=== PATIENT | female | born 1935 | race Caucasian/White ===

== ENCOUNTER 2017-06-09 12:01 | Inpatient (IN) ==
[2017-06-09] MEDS ORDERED: 0.9 % Sodium Chloride 1,000 ML IVC ONE (13:06)
[2017-06-09] MEDS ORDERED: Ipratropium/Albuterol Neb 3 ML IH ONE (13:06)
--- NOTE | 2017-06-09 13:09 | Emergency Department Note ---
START Narrative - START START: I examined this patient and my medical decision-making was reviewed with the [employer]'/PA/Advanced Practice Nurse/Resident Physician. I agree with the documented findings, disposition and treatment plan as described except to the extent set forth below. ED attending note: Patient seen with emergency medicine resident Dr. Cheek. We independently evaluated the patient. We independently had [id number] contact with the patient. Please see a copy of his note for details of the history and physical, evaluation, management and disposition of this emergency Department patient. Briefly: A 1-year-old female 60+ pack years tobacco history presents with cough with occasional blood-tinged sputum shortness of breath and fatigue. Chest x-ray shows a possible right hilar mass that is new. Patient will undergo evaluation and likely admission for likely bronchogenic carcinoma. Disposition pending.
[2017-06-09 13:13] LABS: Basophils # 0.1 K/mcL (0.0-0.2); Basophils % 0.6 %; Eosinophils # 0.1 K/mcL (0.0-0.6); Eosinophils % 1.3 %; Hematocrit 40.7 % (35.3-44.9); Hemoglobin 13.6 g/dL (11.5-15.4); Immature Granulocytes % 0.4 % (0-4); Lymphocytes # 1.5 K/mcL (0.6-4.6); Lymphocytes % 19.7 %; Mean Corpuscular HGB Conc 33.4 g/dL (31.6-35.5); Mean Corpuscular Hemoglobin 27.8 pg (28.0-33.3); Mean Corpuscular Volume 83.2 fL (83.0-100.0); Mean Platelet Volume 8.4 fL (9.4-12.4); Monocytes # 0.6 K/mcL (0.0-1.3); Monocytes % 7.6 %; Neutrophils # 5.5 K/mcL (1.6-8.9); Platelet Count 347 K/mcL (140-400); Red Blood Count 4.89 M/mcL (3.82-4.97); Red Cell Distribution Width 12.2 % (11.5-14.5); Segmented Neutrophils % 70.4 %
[2017-06-09 13:27] LABS: BUN/Creatinine Ratio 14 (6-26); Blood Urea Nitrogen 10 mg/dL (7-20); Calcium 9.8 mg/dL (8.6-10.8); Carbon Dioxide 24 mEq/L (19-29); Chloride 97 mEq/L (98-109); Glucose 95 mg/dL (70-99); Osmolality,Calculated 271 (280-300); Potassium 4.3 mEq/L (3.5-4.5); Sodium 131 mEq/L (136-145); eGFR For African Americans > 60 (> 60); eGFR For Non-African Americans > 60 (> 60)
[2017-06-09 13:33] LABS: INR 1.1; Prothrombin Time 11.6 Seconds (9.4-12.1)
[2017-06-09 13:36] LABS: Activated Partial Thrombo Time 30.9 Seconds (26.0-36.0)
--- NOTE | 2017-06-09 13:48 | Emergency Department Note ---
Disposition Clinical Impression: Right lower lobe lung mass, Hilar lymphadenopathy, Pneumonitis, Pleural effusion Disposition: Admitted As Inpatient Condition: Serious Time of Disposition: 15:21 SOB HPI - General Chief Complaint: ED Shortness of Breath/Dyspnea Stated Complaint: melissa Time Seen by Provider: 06/09/17 12:23 Source: patient Limitations: no limitations Nursing Notes Reviewed: Yes Vital Signs Reviewed: Yes - History of Present Illness 81-year-old female presents complaining of shortness of breath and cough, this been going on for several weeks. Denies CP. Sometimes productive of green phlegm and hemoptysis. Patient states that she has not been into the Dr. for 8 months, and she never sees a doctor and does not take any medication. Patient says more shortness of breath, denies any chest pain, denies any lower extremity swelling or edema. Pt Subjective Complaint: shortness of breath Onset (ago): week(s) Severity: moderate Consistency/Duration: intermittent Improves with: oxygen Worsens with: nothing Associated symptoms: Reports: denies other symptoms Treatment prior to arrival: none Cough present: Yes Cough Description: Voluntary - Related Data Home Medications Medication Instructions Recorded Confirmed Aspirin [Lo-Dose Aspirin EC] 81 mg PO DAILY 06/09/17 06/09/17 Allergies Allergy/AdvReac Type Severity Reaction Status Date / Time Penicillins AdvReac Rash Verified 06/09/17 12:06 Sulfa (Sulfonamide AdvReac Rash Verified 06/09/17 12:06 Antibiotics) All systems ED: reviewed and negative except as stated. Review of Systems: As Per HPI Constitutional: Reports: weakness, weight change. Denies: fever, chills Eyes: Denies: eye pain ENT ED: Denies: ear pain Cardiovascular: Denies: chest pain Respiratory: Reports: as per HPI, cough, hemoptysis, sputum production Gastrointestinal: Denies: abdominal pain, nausea, vomiting Genitourinary: Denies: urgency, dysuria Musculoskeletal: Denies: back pain Integumentary: Denies: rash Neurological: Denies: headache, weakness Psychiatric: Denies: anxiety Past Medical History - Past Medical History Attestation: Yes The following information was validated with the patient. Source: patient Medical history: Reports: no medical history Psychiatric history: Reports: no psych history - Social History Smoking Status: Current every day smoker Smokeless Tobacco Status: No Alcohol use: Reports: none Drug use: Reports: none Physical Exam Constitutional: NAD, vital signs reviewed and wnl, satting 95% on room air, cachectic Eyes: PERRLA, sclera anicteric ENT & Mouth: MM dry Neck: normal inspection, neck is supple Resp: Diminished breath sounds on the right CV: RRR, no m/g/r GI: normal inspection, soft, no guarding or rigidity Neuro: A&O3, CNII-XII grossly intact, [place] Skin: on limited exam, poor skin turgor - General Limitations: no limitations General appearance: alert, in no apparent distress Course Course Narrative: 81-year-old female with cough hemoptysis some weight loss, worsening shortness of breath for several weeks, although she satting 95% on room air, I am concerned given her history with hemoptysis that she may have pulmonary pathology, an x-ray was ordered at triage I reviewed this appears to show a hilar mass and right-sided pleural effusion, I went back and performed a bedside echocardiogram from the subxiphoid view this did show pericardial effusion electrical alternans was evident on the EKG. The patient was eating CBC BMP trope coagulations, CT of the chest to evaluate for intrathoracic pathology suspect likely pull primary lung cancer - Reevaluation(s) Reevaluation #1: CT does confirm bronchogenic mass, with postobstructive pneumonitis, patient's hemogram and a stable otherwise she will be admitted for evaluation, Dr. Ge accepting the patient for admission, plan for hematology oncology consultation Time: 15:20 Vital Signs Temperature 98.0 F 06/09/17 12:03 Pulse Rate 99 06/09/17 12:03 Respiratory Rate 20 06/09/17 12:03 Blood Pressure 213/95 06/09/17 12:03 O2 Sat by Pulse Oximetry 96 06/09/17 12:03 Temperature 98.0 F 06/09/17 12:03 Pulse Rate 93 06/09/17 13:19 Respiratory Rate 18 06/09/17 13:37 Blood Pressure 179/98 06/09/17 13:19 O2 Sat by Pulse Oximetry 96 06/09/17 13:37 Oxygen Delivery Oxygen Delivery Nasal Cannula Shortness of Breath/Dyspnea - MDM Narrative Medical decision making narrative: 81-year-old female for cough shortness of breath hemoptysis found to have new right-sided lung mass pleural effusion suspected lung cancer needed for medicine workup and oncology consultation - Differential Diagnosis Likely: acute exacerbation of chronic obstructive airways disease, congestive heart failure, pulmonary embolism - Medical Records Medical records reviewed: Yes I reviewed the patient's medical records. - Lab Data Lab results reviewed: Yes I reviewed the patient's lab results. Result diagrams: 06/09/17 13:07 06/09/17 13:07 Lab Results 06/09/17 06/09/17 06/09/17 Range/Units 13:07 13:07 13:07 WBC 7.8 (4.3-11.1) K/mcL RBC 4.89 (3.82-4.97) M/mcL Hgb 13.6 (11.5-15.4) g/dL Hct 40.7 (35.3-44.9) % MCV 83.2 (83.0-100.0) fL MCH 27.8 L (28.0-33.3) pg MCHC 33.4 (31.6-35.5) g/dL RDW 12.2 (11.5-14.5) % Plt Count 347 (140-400) K/mcL MPV 8.4 L (9.4-12.4) fL Immature Gran % 0.4 (0-4) % Seg Neutrophils % 70.4 % Lymphocytes % 19.7 % Monocytes % 7.6 % Eosinophils % 1.3 % Basophils % 0.6 % Neutrophils # 5.5 (1.6-8.9) K/mcL Lymphocytes # 1.5 (0.6-4.6) K/mcL Monocytes # 0.6 (0.0-1.3) K/mcL Eosinophils # 0.1 (0.0-0.6) K/mcL Basophils # 0.1 (0.0-0.2) K/mcL PT (9.4-12.1) Seconds INR APTT (26.0-36.0) Seconds Sodium 131 L (136-145) mEq/L Potassium 4.3 (3.5-4.5) mEq/L Chloride 97 L (98-109) mEq/L Carbon Dioxide 24 (19-29) mEq/L BUN 10 (7-20) mg/dL Creatinine 0.70 (0.57-1.11) mg/dL Est GFR ( Amer) > 60 (> 60) Est GFR (Non-Af Amer) > 60 (> 60) BUN/Creatinine Ratio 14 (6-26) Glucose 95 (70-99) mg/dL Calculated Osmolality 271 L (280-300) Lactic Acid 1.3 (0.5-2.2) mmol/L Calcium 9.8 (8.6-10.8) mg/dL Troponin I (0-0.03) ng/mL B-Natriuretic Peptide (0-100) pg/mL 06/09/17 06/09/17 06/09/17 Range/Units 13:07 13:07 13:07 WBC (4.3-11.1) K/mcL RBC (3.82-4.97) M/mcL Hgb (11.5-15.4) g/dL Hct (35.3-44.9) % MCV (83.0-100.0) fL MCH (28.0-33.3) pg MCHC (31.6-35.5) g/dL RDW (11.5-14.5) % Plt Count (140-400) K/mcL MPV (9.4-12.4) fL Immature Gran % (0-4) % Seg Neutrophils % % Lymphocytes % % Monocytes % % Eosinophils % % Basophils % % Neutrophils # (1.6-8.9) K/mcL Lymphocytes # (0.6-4.6) K/mcL Monocytes # (0.0-1.3) K/mcL Eosinophils # (0.0-0.6) K/mcL Basophils # (0.0-0.2) K/mcL PT 11.6 (9.4-12.1) Seconds INR 1.1 APTT 30.9 (26.0-36.0) Seconds Sodium (136-145) mEq/L Potassium (3.5-4.5) mEq/L Chloride (98-109) mEq/L Carbon Dioxide (19-29) mEq/L BUN (7-20) mg/dL Creatinine (0.57-1.11) mg/dL Est GFR ( Amer) (> 60) Est GFR (Non-Af Amer) (> 60) BUN/Creatinine Ratio (6-26) Glucose (70-99) mg/dL Calculated Osmolality (280-300) Lactic Acid (0.5-2.2) mmol/L Calcium (8.6-10.8) mg/dL Troponin I 0.00 (0-0.03) ng/mL B-Natriuretic Peptide 33 (0-100) pg/mL - Radiology Data Radiology results reviewed: Yes I reviewed the patient's radiology results. Chest X-Ray 06/09/17 12:06 IMPRESSION: New moderate right pleural effusion with increased density in the right hilum. Would recommend further evaluation with contrast-enhanced chest CT to evaluate for mass or adenopathy within the right hilum. D/ / 06/09/2017 13:01:36 Misti Luther MD / jonathan Interpreting Provider: Misti Luther MD Chest CTA 06/09/17 13:07 IMPRESSION: 1. Extensive mediastinal and right hilar adenopathy highly suspicious for malignancy. Adenopathy results in extrinsic compression of the right lower lobe pulmonary artery, right middle lobe bronchus, and right lower lobe bronchus. Diffuse consolidation of the right middle lobe may represent a postobstructive pneumonitis. 2. Inter- and intralobular septal thickening in the right upper lobe suspicious for lymphangitis. 3. Moderate right pleural effusion. D/ / 06/09/2017 14:25:21 Kody Fountain MD / jonathan Interpreting Provider: Kody Fountain MD - EKG Data EKG attestation: Yes I reviewed and interpreted this EKG. EKG shows normal: Reports: sinus rhythm Rate: Reports: normal (89) Rhythm: Reports: NSR When compared to previous EKG there are: other (Electrical alternans) Interpretation: Reports: nonspecific ST-T wave changes - Core Measures AMI Core Measures Followed: No
[2017-06-09] MEDS ORDERED: Levofloxacin 750 MG/150 ML 750 MG/150 ML BAG IVPB ONE (14:51)
--- NOTE | 2017-06-09 17:28 | Internal Med History&Physical ---
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 Admitted with worsening shortness of breath: Duration 2 weeks. Workup in the emergency room: Suggestive of a right lower lobe mass. Likely post obstructive pneumonia. Patient claims that she used to smoke in the past. Plan: -Admit as inpatient: Reason for inpatient admission as patient needs intravenous antibiotics for postobstructive pneumonia. -Blood cultures. -IV ceftriaxone 1 g every 24 hours. -IV azithromycin 500 mg every 24 hours. At this point I would like to hold the consult for pulmonary/interventional radiology because I am not sure whether patient would like to go for any invasive procedure. If tomorrow patient agrees for any invasive procedure then pulmonology/ interventional radiology can be consulted for possible biopsy. Patient's daughter at bedside. I have discussed plan with the patient's daughter at length. I have examined this patient in the emergency department in room #15. (2) Hilar lymphadenopathy Current visit: Yes Status: Acute Likely secondary to malignancy. (3) Pneumonitis Current visit: Yes Status: Acute This is a post obstructive pneumonia. Patient will be on community-acquired pneumonia guideline/antibiotics (4) Pleural effusion Current visit: Yes Status: Acute May need aspiration if patient's shortness of breath get worse. (5) DVT prophylaxis Current visit: Yes Status: Acute SCD. Medical decision making: This patient has a moderate to severe risk of worsening in spite of being on appropriate treatment due to the possibility of underlying fatal diagnosis/there is a possibility of a malignancy. Internal Medicine - H&P: HPI Chief complaint: Shortness of breath Admitted From: Emergency Dept Plans for Post Hospital Care: Home History of present illness: PCP: None Brief as medical history: Patient never been to see in last 81 years. Patient treats her pain with the help of magnets which she orders by watching TV commercials. History of present medical illness: Patient has a worsening shortness of breath for past 2 weeks. Patient claims that she has a yellowish-green sputum which is persistently getting worse in last 3-4 days. Patient claims that on minimal walking she feels that she is short of breath. Patient denies chest pain, abdominal pain, nausea, vomiting, diarrhea or dizziness. Patient does not want invasive procedures and that is one of the reason she is delaying her visit to her doctors. Patient's daughter is at bedside and patient is permission to talk about her health in front of her daughter. Workup in the emergency room: Patient was evaluated in the emergency room. Basic labs were drawn. CT scan of the chest was suggestive of a large lung mass with postobstructive pneumonia. Reason for admission: New lung mass/post obstructive pneumonia/patient was never seen a physician in her life. Family history: Noncontributory Past Med Surg Social Fam HX - Past Medical History Medical history: no medical history Psychiatric history: no psych history - Social History Smoking Status: Current every day smoker Smokeless Tobacco Status: No Alcohol use: none Drug use: none Internal Medicine - H&P: Meds Aspirin [Lo-Dose Aspirin EC] 81 mg PO DAILY 06/09/17 [History] 3 Allergy/AdvReac Type Severity Reaction Status Date / Time Penicillins AdvReac Rash Verified 06/09/17 12:06 Sulfa (Sulfonamide AdvReac Rash Verified 06/09/17 12:06 Antibiotics) All Systems PM: A 10-system review of systems was performed and is negative for pertinent findings except as documented above in the HPI. - Constitutional Constitutional: no chills, no fever(s), no night sweats - EENT Eyes: no change in vision, no discharge, no pain, no photophobia Ears: no ear discharge, no ear pain, no tinnitus Nose, mouth and throat: no dysphagia, no nasal discharge, no neck pain, no sore throat - Cardiovascular Cardiovascular ROS IM: no chest pain, no diaphoresis, no dyspnea, no lightheadedness, no palpitations, no syncope - Respiratory Respiratory: cough, dyspnea, excessive phlegm production, change in phlegm color , no wheezing - Gastrointestinal Gastrointestinal: no abdominal pain, no diarrhea, no hematemesis, no hematochezia, no melena, no nausea, no vomiting - Genitourinary Genitourinary: no change in urinary stream, no dysuria, no flank pain, no hematuria - Musculoskeletal Musculoskeletal ROS IM: no numbness, no tingling - Integumentary Integumentary IM: no rash, no unusual bruising - Neurological Neurological ROS: no confusion, no convulsions, no focal weakness, no numbness, no tingling, no tremor(s) - Hematologic/Lymphatic Hematologic/Lymphatic: no easy bruising - Constitutional Vitals: Temp Pulse Resp BP Pulse Ox 98.0 F 97 18 149/81 95 06/09/17 12:03 06/09/17 16:14 06/09/17 16:14 06/09/17 16:14 06/09/17 16:14 General appearance: Present: A&O X 3, pleasant, no acute distress, answers questions appropriately - Head Head exam: Present: atraumatic, normocephalic - Eye Eye exam: Present: PERRL, conjuntiva pink, sclera anicteric Pupils: Present: PERRL - Neck Neck exam general surgery: Present: supple, trachea midline. Absent: lymphadenopathy - Respiratory Respiratory exam: Present: CTAB. Absent: accessory muscle use, rales, rhonchi, wheezes - Cardiovascular Cardiovascular exam: Present: RRR, +S1, +S2. Absent: diastolic murmur, gallop, rubs, systolic murmur - GI/Abdominal GI/Abdominal exam: Present: normal bowel sounds, soft, no peritoneal signs. Absent: distended, tenderness - Extremities Exam Extremities exam: Present: warm, radial pulses palpable and symmetrical. Absent : calf tenderness, cyanotic, pedal edema - Neurological Exam Neurological exam: Present: CN II-XII intact, oriented X3, no focal deficits. Absent: pronater drift, facial droop, speech deficit - Skin Skin exam: Present: dry, intact Internal Med - H&P Results - Labs CBC & Chem 7: 06/09/17 13:07 06/09/17 13:07 Labs: I discussed lab results/EKG with the emergency room physician. I also discussed CT chest finding with the emergency room physician.
[2017-06-09] MEDS ORDERED: Naloxone 0.4 MG/ML INJ IVP PRN (17:34)
[2017-06-09] MEDS ORDERED: Acetaminophen 325 MG TABLET PO PRN (17:34)
[2017-06-09] MEDS: cefTRIAXone 1,000 MG in Water for inj. (sterile) 10 ML IVP SCH (19:00)
[2017-06-09] MEDS: Azithromycin 500 MG in D5% in Water 250 ML IVPB SCH (19:01)
[2017-06-09] MEDS: 0.9 % Sodium Chloride 1,000 ML IVC SCH (19:01)
[2017-06-09] MEDS: Ipratropium/Albuterol Neb 3 ML IH SCH ×2 (20:04→23:19)
[2017-06-09] MEDS ORDERED: ALPRAZolam 0.25 MG TABLET PO ONE (23:39)
[2017-06-10 01:08] LABS: Basophils % 0.5 %; Eosinophils # 0.2 K/mcL (0.0-0.6); Eosinophils % 2.5 %; Hematocrit 34.3 % (35.3-44.9); Immature Granulocytes % 0.4 % (0-4); Lymphocytes # 1.6 K/mcL (0.6-4.6); Lymphocytes % 20.2 %; Mean Corpuscular HGB Conc 32.9 g/dL (31.6-35.5); Mean Corpuscular Hemoglobin 27.8 pg (28.0-33.3); Mean Corpuscular Volume 84.3 fL (83.0-100.0); Mean Platelet Volume 8.5 fL (9.4-12.4); Monocytes # 0.7 K/mcL (0.0-1.3); Monocytes % 8.4 %; Neutrophils # 5.4 K/mcL (1.6-8.9); Platelet Count 311 K/mcL (140-400); Red Blood Count 4.07 M/mcL (3.82-4.97); Red Cell Distribution Width 12.3 % (11.5-14.5)
[2017-06-10 01:10] LABS: Hemoglobin 11.3 g/dL (11.5-15.4)
[2017-06-10 01:14] LABS: INR 1.2; Prothrombin Time 12.5 Seconds (9.4-12.1)
[2017-06-10 01:16] LABS: Activated Partial Thrombo Time 29.8 Seconds (26.0-36.0)
[2017-06-10 01:26] LABS: Alanine Aminotransferase 12 Units/L (0-55); Albumin/Globulin Ratio 0.9 (1.1-2.2); Alkaline Phosphatase 106 Units/L (38-126); Aspartate Amino Transferase 17 Units/L (5-34); BUN/Creatinine Ratio 12 (6-26); Bilirubin,Total 0.3 mg/dL (0.2-1.2); Blood Urea Nitrogen 8 mg/dL (7-20); Calcium 8.9 mg/dL (8.6-10.8); Carbon Dioxide 25 mEq/L (19-29); Chloride 101 mEq/L (98-109); Globulin 3.5 g/dL (2.4-3.5); Glucose 106 mg/dL (70-99); Magnesium 2.1 mg/dL (1.6-2.6); Osmolality,Calculated 275 (280-300); Phosphorous 3.1 mg/dL (2.3-4.7); Potassium 4.1 mEq/L (3.5-4.5); Sodium 133 mEq/L (136-145); Total Protein 6.5 g/dL (6.0-8.3); eGFR For African Americans > 60 (> 60); eGFR For Non-African Americans > 60 (> 60)
[2017-06-10] MEDS: Ipratropium/Albuterol Neb 3 ML IH SCH ×5 (03:20→21:00)
[2017-06-10] MEDS: 0.9 % Sodium Chloride 1,000 ML IVC SCH (12:25)
--- NOTE | 2017-06-10 14:19 | Pulmonology Consult Note ---
Date of Encounter: 06/10/17 Time of Encounter: 14:19 Assessment and Plan (1) Hilar lymphadenopathy Current Visit: Yes Status: Acute This is concerning primary lung malignancy it is unclear if there is any endobronchial extension from tumor at this time. Plan for bronchoscopy with endobronchial ultrasound for further evaluation. I explained to the patient that this does look like lung cancer less likely all related to infection all questions answered at bedside. A bronchoscopy is recommended. The procedure , risks, benefits, complications, and expected outcomes have been reviewed. Benefits of diagnosis, as well as risks to include bleeding, infection, pneumothorax which may require surgical intervention, and in a small population. The patient is aware that sometimes test is nondiagnostic. Discussed with patient and agrees to proceed. Please keep nothing by mouth at midnight (2) Pneumonia Current Visit: Yes Status: Acute Postobstructive pneumonia being treated with antimicrobials cultures as far negative de-escalate a respiratory fluoroquinolone to complete 7 day course Qualifiers: Laterality: right Lung location: upper lobe of lung Qualified Code(s): J18.1 - Lobar pneumonia, unspecified organism (3) COPD (chronic obstructive pulmonary disease) Current Visit: Yes Status: Acute Does not appear to have acute exacerbation recommend schedule bronchodilators and dual nebs) every 6 hours patient should be discharged with long acting muscarinic antagonist such as Spiriva 18 g daily Qualifiers: COPD type: emphysema Emphysema type: unspecified Qualified Code(s): J43.9 - Emphysema, unspecified (4) Tobacco abuse Current Visit: Yes Status: Acute Smoking cessation counseling was provided for the patient (5) Pleural effusion Current Visit: Yes Status: Acute Suspected right metastatic pleural effusion thoracentesis can be attempted prior to bronchoscopy for cytological analysis History of Present Illness Consult date: 06/10/17 Requesting physician: Fish Tellez Reason for consult: lung mass Chief complaint: Shortness of Breath History of present illness: This is an 81-year-old woman with extensive smoking history who presented with progressive shortness of breath cough or productive sputum and weight loss over the last month. She says that she has noticed that she has had increased shortness of breath dyspnea with activity poor appetite and weight loss along with persistent productive sputum sometimes mixed with blood. CTA was performed in the ED which was notable for right upper lobe postobstructive pneumonia narrowing of the right mainstem bronchus from extrinsic compression of lymph node versus tumor and underlying emphysema concerning for primary lung malignancy. Pulmonary was consulted for further evaluation of this Today patient says that breathing is near baseline she is not requiring any supplemental oxygen at this time. She is a long-time smoker since the age of 18 about a pack a day continues to smoke to the time of admission to the hospital. She has not seen a doctor in 50 years no family history of lung malignancy and she does not have any prior history of personal malignancy. She worked in several jobs throughout her life but none of which had significant occupational exposures. Past Med Surg Social Fam HX - Past Medical History Medical history: no medical history Psychiatric history: no psych history - Past Surgical History Surgical History: no surgical history - Social History Smoking Status: Current every day smoker Packs per day: 1.5-2 Smokeless Tobacco Status: No Alcohol use: none Drug use: none - Family History Mother Family Member Ethnicity: Non- Living Status: Age at : 63 Cause of : Stroke Hx Family Cardiac Disorders: Yes Father Living Status: Age at : 64 Cause of : Heart Attack Hx Family Cardiac Disorders: Yes Brother Living Status: Age at : 80 Cause of : NHatural causes Hx Family Cardiac Disorders: Yes Medications and Allergies Aspirin [Lo-Dose Aspirin EC] 81 mg PO DAILY 06/09/17 [History] 3 Allergy/AdvReac Type Severity Reaction Status Date / Time Penicillins AdvReac Rash Verified 06/09/17 12:06 Sulfa (Sulfonamide AdvReac Rash Verified 06/09/17 12:06 Antibiotics) All Systems: A 10-system review of systems was performed and is negative for pertinent findings except as documented above in the HPI. Physical Examination Vital Signs: Vital Signs, Last 4 Hours Temp Pulse Resp BP Pulse Ox 06/10/17 11:42 98.0 F 78 16 156/68 96 06/10/17 11:20 16 96 General appearance: no acute distress Eyes: nonicteric Auscultation: left: clear, right: diminished breath sounds, rhonchi Cardiovascular: regular rate and rhythm Gastrointestinal: normoactive bowel sounds, soft, non-tender Integumentary: normal Extremities: no cyanosis, no edema, no clubbing Musculoskeletal: no deformities normal mental status, non-focal exam mood appropriate Results - Laboratory Findings CBC and BMP: 06/10/17 00:43 06/10/17 00:43 PT/INR, D-dimer PT 12.5 Seconds (9.4-12.1) H 06/10/17 00:43 Abnormal lab findings: Abnormal lab results Hgb 11.3 g/dL (11.5-15.4) L D 06/10/17 00:43 Hct 34.3 % (35.3-44.9) L 06/10/17 00:43 MCH 27.8 pg (28.0-33.3) L 06/10/17 00:43 MPV 8.5 fL (9.4-12.4) L 06/10/17 00:43 PT 12.5 Seconds (9.4-12.1) H 06/10/17 00:43 Sodium 133 mEq/L (136-145) L 06/10/17 00:43 Glucose 106 mg/dL (70-99) H 06/10/17 00:43 Calculated Osmolality 275 (280-300) L 06/10/17 00:43 Albumin 3.0 g/dL (3.5-5.0) L 06/10/17 00:43 Albumin/Globulin Ratio 0.9 (1.1-2.2) L 06/10/17 00:43 - Diagnostic Findings Chest x-ray: report reviewed, image reviewed CT scan - chest: report reviewed, image reviewed - Clinical Findings Intake & Output: Intake & Output 06/09/17 06/10/17 06/10/17 23:59 07:59 15:59 Intake Total 260 / 410 0 / 0 1120 / 1120 Balance 260 / 410 0 / 0 1120 / 1120 Weight 71.1 kg Consult Discharge Plan - Plan Referrals: NONE,PCP [Primary Care Provider] -
--- NOTE | 2017-06-10 16:46 | Electrocardiograph Report ---
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
[2017-06-10] MEDS: cefTRIAXone 1,000 MG in Water for inj. (sterile) 10 ML IVP SCH (18:58)
[2017-06-10] MEDS: Azithromycin 500 MG in D5% in Water 250 ML IVPB SCH (18:59)
--- NOTE | 2017-06-10 19:18 | Internal Med Progress Note ---
Date of Encounter: 06/10/17 Time of Encounter: 13:00 - Assessment and plan (1) Postobstructive pneumonia Current Visit: Yes Status: Acute Assessment and plan: Continue with ceftriaxone. Follow-up blood culture and sputum culture. Oxygen by nasal cannula. (2) Hilar lymphadenopathy Current Visit: Yes Status: Acute Assessment and plan: Consult to pulmonology to evaluate for need of bronchoscopy and biopsy. (3) COPD (chronic obstructive pulmonary disease) Current Visit: Yes Status: Acute Assessment and plan: Inhaled albuterol and ipratropium. Qualifiers: COPD type: emphysema Emphysema type: centrilobular Qualified Code(s): J43.2 - Centrilobular emphysema (4) Tobacco abuse Current Visit: Yes Status: Acute Assessment and plan: Smoking cessation counseling provided. - Subjective Interval history: She reports mild shortness of breath associated with cough productive of yellow sputum. She has had no fever but a 10 pound weight loss in the last 1 month. - Constitutional Vitals: Temp Pulse Resp BP Pulse Ox 98.1 F 82 14 149/77 98 06/10/17 18:46 06/10/17 18:46 06/10/17 18:46 06/10/17 18:46 06/10/17 18:46 General appearance: Present: A&O X 3, pleasant, no acute distress, answers questions appropriately - Eye Eye exam: Present: PERRL, conjuntiva pink, sclera anicteric Pupils: Present: PERRL - Respiratory Respiratory exam: Present: CTAB. Absent: accessory muscle use, rales, rhonchi, wheezes - Cardiovascular Cardiovascular exam: Present: RRR, +S1, +S2. Absent: diastolic murmur, gallop, rubs, systolic murmur - GI/Abdominal GI/Abdominal exam: Present: normal bowel sounds, soft, no peritoneal signs. Absent: distended, tenderness - Extremities Exam Extremities exam: Present: warm, radial pulses palpable and symmetrical. Absent : calf tenderness, cyanotic, pedal edema - Skin Skin exam: Present: dry, intact Internal Medicine: Result - Labs CBC & Chem 7: 06/10/17 00:43 06/10/17 00:43 Labs: Short CBC 06/10/17 Range/Units 00:43 WBC 8.0 (4.3-11.1) K/mcL Hgb 11.3 L D (11.5-15.4) g/dL Hct 34.3 L (35.3-44.9) % Plt Count 311 (140-400) K/mcL Neutrophils # 5.4 (1.6-8.9) K/mcL BMP 06/10/17 00:43 Sodium 133 L Potassium 4.1 Chloride 101 Carbon Dioxide 25 BUN 8 Creatinine 0.68 Glucose 106 H Calcium 8.9 Cardiac Enzymes 06/09/17 06/10/17 06/10/17 Range/Units 18:56 00:43 05:27 Troponin I 0.01 0.00 0.00 (0-0.03) ng/mL Liver Function 06/10/17 Range/Units 00:43 Total Bilirubin 0.3 (0.2-1.2) mg/dL AST 17 (5-34) Units/L ALT 12 (0-55) Units/L Alkaline Phosphatase 106 (38-126) Units/L Albumin 3.0 L (3.5-5.0) g/dL - ABG Interpretation ABG results: PT/INR, D-dimer PT 12.5 Seconds (9.4-12.1) H 06/10/17 00:43 - Impressions I reviewed a CAT scan of the chest which shows extensive mediastinal and right hilar adenopathy with compression of right middle lobe bronchus and postobstructive right middle lobe pneumonia. Consult Discharge Plan - Plan Referrals: NONE,PCP [Primary Care Provider] -
--- NOTE | 2017-06-10 19:49 | Anesthesia Evaluation PreOp ---
Date of Encounter: 06/11/17 Time of Encounter: 19:46 - Past History Planned Operation: EBUS Cardiac History: Denies any Significant Hx Pulmonary History: Smoker, COPD, Other ( right lower lobe mass. 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: Denies Any Significant HX Other Medical History: Denies Any Significant HX : No Alcohol Use: none Drug use: none Medications and Allergies Aspirin [Lo-Dose Aspirin EC] 81 mg PO DAILY 06/09/17 [History] 3 Allergy/AdvReac Type Severity Reaction Status Date / Time Penicillins AdvReac Rash Verified 06/09/17 12:06 Sulfa (Sulfonamide AdvReac Rash Verified 06/09/17 12:06 Antibiotics) - Meds/Allergy Pre-op Review Medications Reviewed: Yes Allergies Reviewed: Yes Beta Blockers on Current Med List: No Anesthesia Results - Labs 06/10/17 00:43 06/10/17 00:43 - Imaging EKG: image reviewed (SINUS RHYTHM LEFT ATRIAL ENLARGEMENT INCOMPLETE RIGHT BUNDLE BRANCH BLOCK) Anesthesia Exam O2 Sat Weight 71.1 kg O2 Sat by Pulse Oximetry 98 O2 Sat by Pulse Oximetry 99 O2 Sat by Pulse Oximetry 98 O2 Sat by Pulse Oximetry 96 O2 Sat by Pulse Oximetry 96 O2 Sat by Pulse Oximetry 99 O2 Sat by Pulse Oximetry 97 O2 Sat by Pulse Oximetry 98 O2 Sat by Pulse Oximetry 96 O2 Sat by Pulse Oximetry 98 Vital Signs Temp Pulse Resp BP Pulse Ox 98.0 F 99 20 213/95 96 06/09/17 12:03 06/09/17 12:03 06/09/17 12:03 06/09/17 12:03 06/09/17 12:03 Vital Signs/O2 Sat, Most Current Temp Pulse Resp BP Pulse Ox 98.1 F 82 14 149/77 98 06/10/17 18:46 06/10/17 18:46 06/10/17 18:46 06/10/17 18:46 06/10/17 18:46 Height: 5' Weight: 156# NPO (# of Hours): > 8 hrs Pain Scale: 0 Pain Scale Used: Numeric (1 - 10) - HEENT Pupil (Motor): Pupils equal, EOMI Mallampati: I Teeth: Edentulous Oral Opening: Greater than 3 - HEADING AND PRIMING OPERATOR LOC: Oriented HEADING AND PRIMING OPERATOR Motor: Normal RUE, Normal LUE, Normal RLE, Normal LLE, Normal Face HEADING AND PRIMING OPERATOR Sensory: Normal: RUE, LUE, RLE, LLE, Face - Cardiac Rhythm: Regular Murmur: None JVD: No Carotid Bruit: No - Pulmonary Breath Sounds: bilateral Clear Respiratory Effort: Symmetrical Anesthesia Assess/Plan ASA Score: 3 Modified Laurens Scale for Level of Consciousness: Cooperative, oriented, and tranquil Anesthetic Plan: General Autologous Blood: Yes Monitoring Plan: Standard Monitors Recovery Plan: PACU
[2017-06-10] MEDS: hydrOXYzine pamoate 25 MG CAPSULE PO SCH (22:35)
[2017-06-11] MEDS: Ipratropium/Albuterol Neb 3 ML IH SCH ×7 (00:40→23:11)
[2017-06-11 04:55] LABS: Basophils # 0.1 K/mcL (0.0-0.2); Basophils % 0.8 %; Eosinophils # 0.3 K/mcL (0.0-0.6); Hematocrit 33.7 % (35.3-44.9); Hemoglobin 11.2 g/dL (11.5-15.4); Immature Granulocytes % 0.4 % (0-4); Lymphocytes # 1.9 K/mcL (0.6-4.6); Lymphocytes % 26.2 %; Mean Corpuscular HGB Conc 33.2 g/dL (31.6-35.5); Mean Corpuscular Hemoglobin 28.3 pg (28.0-33.3); Mean Corpuscular Volume 85.1 fL (83.0-100.0); Mean Platelet Volume 8.7 fL (9.4-12.4); Monocytes # 0.6 K/mcL (0.0-1.3); Monocytes % 8.3 %; Neutrophils # 4.3 K/mcL (1.6-8.9); Platelet Count 293 K/mcL (140-400); Red Blood Count 3.96 M/mcL (3.82-4.97); Red Cell Distribution Width 12.5 % (11.5-14.5); Segmented Neutrophils % 60.3 %
[2017-06-11 05:18] LABS: BUN/Creatinine Ratio 12 (6-26); Blood Urea Nitrogen 8 mg/dL (7-20); Calcium 9.1 mg/dL (8.6-10.8); Carbon Dioxide 24 mEq/L (19-29); Chloride 100 mEq/L (98-109); Glucose 112 mg/dL (70-99); Osmolality,Calculated 277 (280-300); Sodium 134 mEq/L (136-145); eGFR For African Americans > 60 (> 60); eGFR For Non-African Americans > 60 (> 60)
--- NOTE | 2017-06-11 08:37 | Pulmonology Progress Note ---
Date of Encounter: 06/11/17 Time of Encounter: 08:00 Assessment and Plan (1) LAD (lymphadenopathy), mediastinal Current Visit: Yes Status: Acute Patient has extensive mediastinal and hilar LN concern for small cell ca did EBUS with [facility]NA today afternoon showed prelim results small ca Vs Lymphoma waiting for final results from cell block most likely due to small cell ca will wait for final results will call Medical oncology vs Radiation oncology. Explained the plan to the daughter. (2) Hilar lymphadenopathy Current Visit: Yes Status: Acute Is due to same process most likely due to small cell ca Vs Lymphoma waiting for final pathology results (3) Right lower lobe lung mass Current Visit: Yes Status: Acute The lung mass plus the mediastinal adenopathy especially the sub carinal LN compressing the pulmonary artery once the pathology is confirmed will contact radiation oncology for probable evaluation of urgent radiation therapy as the mass is compressing the Bronchus intermedius ,RML and RLL bronchus and sub carinal LN compressing the pulmonary artery. (4) Pneumonia Current Visit: Yes Status: Acute Patient has probable post obstructive pneumonia involving both lower and middle lobe of the right lung , BAL was done for respiratory culture . Will continue the current regimen of antibiotics. Qualifiers: Pneumonia type: due to unspecified organism Laterality: right Lung location: lower lobe of lung Qualified Code(s): J18.1 - Lobar pneumonia, unspecified organism (5) COPD (chronic obstructive pulmonary disease) Current Visit: Yes Status: Acute Patient has increased wheezing to add steroids to bronchodilators will treat as COPD exacerbation. Qualifiers: COPD type: emphysema Emphysema type: centrilobular Qualified Code(s): J43.2 - Centrilobular emphysema Subjective Principal diagnosis: Mediastinal Lymphadenopathy ,Hilar Lymphadenopathy Interval history: Patient presented with increased shortness of breadth , cough, sputum production and hemoptysis CT chest showed Hilar and Mediastinal Lymphadenopathy , with Right middle and lower lobe endobronchial compression concern for small cell Ca pateint scheduled for EBUS and Bronchoscopy ariway examination. Objective PUL Vital signs: Last Vital Signs Temp 98.8 F 06/11/17 06:51 Pulse 71 06/11/17 06:51 Resp 16 06/11/17 08:02 BP 135/75 06/11/17 06:51 Pulse Ox 96 06/11/17 08:03 Auscultation: bilateral: wheezes (scattered wheezes) Results - Laboratory Findings CBC and BMP: 06/11/17 03:47 06/11/17 03:47 PT/INR, D-dimer PT 12.5 Seconds (9.4-12.1) H 06/10/17 00:43 Abnormal lab findings: Abnormal lab results Hgb 11.2 g/dL (11.5-15.4) L 06/11/17 03:47 Hct 33.7 % (35.3-44.9) L 06/11/17 03:47 MPV 8.7 fL (9.4-12.4) L 06/11/17 03:47 PT 12.5 Seconds (9.4-12.1) H 06/10/17 00:43 Sodium 134 mEq/L (136-145) L 06/11/17 03:47 Glucose 112 mg/dL (70-99) H 06/11/17 03:47 Calculated Osmolality 277 (280-300) L 06/11/17 03:47 Albumin 3.0 g/dL (3.5-5.0) L 06/10/17 00:43 Albumin/Globulin Ratio 0.9 (1.1-2.2) L 06/10/17 00:43 - Microbiology Findings Microbiology Findings: Microbiology, Last 48 Hours 06/09/17 18:56 Blood Culture - Preliminary Peripheral Venipuncture No growth. 06/09/17 18:56 Blood Culture - Preliminary Peripheral Venipuncture No growth. - Clinical Findings Intake & Output: Intake & Output 06/10/17 06/11/17 06/11/17 23:59 07:59 15:59 Intake Total 380 / 380 Balance 380 / 380 Weight 71.6 kg - VTE Documentation of Mechanical Device: Graduated compression elastic hosiery Consult Discharge Plan - Plan Referrals: NONE,PCP [Primary Care Provider] -
[2017-06-11] MEDS ORDERED: *HR* Propofol 200 MG/20 ML VIAL IVP ONE (08:38)
[2017-06-11] MEDS ORDERED: Ondansetron 4 MG/2 ML VIAL IM ONE (08:38)
[2017-06-11] MEDS ORDERED: Lidocaine -MPF 4% 5 ML AMPUL INFILT ONE (08:38)
[2017-06-11] MEDS ORDERED: Lidocaine -MPF 2% 5 ML VIAL INFILT ONE (08:38)
[2017-06-11] MEDS ORDERED: *HR* FentaNYL (PF) 100 MCG/2 ML VIAL ONE (11:54)
--- NOTE | 2017-06-11 14:35 | Anesthesia Evaluation Post Op ---
Date of Encounter: 06/11/17 Time of Encounter: 14:34 - Vital Signs Vital Signs: Selected Entries 06/11/17 14:25 Temperature 97.4 F L Pulse Rate 97 Respiratory Rate 16 Blood Pressure 162/72 O2 Sat by Pulse Oximetry 94 Oxygen Flow Rate (LPM) 3 - Lungs Lungs: Clear Ascult./Percussion - Airway Airway: Non-obstructed - Cardiovascular Regular Rate - Mental Status Mental Status: Alert & Oriented, Answers Appropriately - Pain Pain Scale: 0 Pain Scale used: Numeric (1 - 10) - Nausea Vomiting Nausea Vomiting: Not Present - Hydration Hydration: Ice chips, Has not voided - Discharge PostOp Status: Transfer Patient to floor
[2017-06-11] MEDS: predniSONE 20 MG TABLET PO SCH (17:45)
[2017-06-11] MEDS: cefTRIAXone 1,000 MG in Water for inj. (sterile) 10 ML IVP SCH (17:46)
[2017-06-11] MEDS: Azithromycin 500 MG in D5% in Water 250 ML IVPB SCH (17:47)
--- NOTE | 2017-06-11 18:14 | Internal Med Progress Note ---
Date of Encounter: 06/11/17 Time of Encounter: 10:00 - Assessment and plan (1) Postobstructive pneumonia Current Visit: Yes Status: Acute Assessment and plan: Continue with ceftriaxone and azithromycin. Blood cultures negative. Sputum culture shows no growth. Oxygen by nasal cannula. (2) Hilar lymphadenopathy Current Visit: Yes Status: Acute Assessment and plan: Appreciate pulmonary recommendations. I discussed plan with patient's family and patient accepts diagnostic investigation. Plan for bronchoscopy today. (3) COPD (chronic obstructive pulmonary disease) Current Visit: Yes Status: Acute Assessment and plan: Inhaled albuterol and ipratropium. Qualifiers: COPD type: emphysema Emphysema type: centrilobular Qualified Code(s): J43.2 - Centrilobular emphysema (4) Tobacco abuse Current Visit: Yes Status: Acute Assessment and plan: Smoking cessation counseling provided. - Subjective Interval history: She reports mild shortness of breath improved from yesterday. She is nothing by mouth for bronchoscopy today. - Constitutional Vitals: Temp Pulse Resp BP Pulse Ox 98.2 F 101 17 126/70 93 06/11/17 16:24 06/11/17 16:24 06/11/17 16:24 06/11/17 16:24 06/11/17 16:24 General appearance: Present: A&O X 3, pleasant, no acute distress, answers questions appropriately - Respiratory Respiratory exam: Present: rales. Absent: accessory muscle use, rhonchi, wheezes - Cardiovascular Cardiovascular exam: Present: RRR, +S1, +S2. Absent: diastolic murmur, gallop, rubs, systolic murmur - GI/Abdominal GI/Abdominal exam: Present: normal bowel sounds, soft, no peritoneal signs. Absent: distended, tenderness - Extremities Exam Extremities exam: Present: warm, radial pulses palpable and symmetrical. Absent : calf tenderness, cyanotic, pedal edema - Skin Skin exam: Present: dry, intact Internal Medicine: Result - Labs CBC & Chem 7: 06/11/17 03:47 06/11/17 03:47 Labs: Short CBC 06/11/17 Range/Units 03:47 WBC 7.2 (4.3-11.1) K/mcL Hgb 11.2 L (11.5-15.4) g/dL Hct 33.7 L (35.3-44.9) % Plt Count 293 (140-400) K/mcL Neutrophils # 4.3 (1.6-8.9) K/mcL BMP 06/11/17 03:47 Sodium 134 L Potassium 4.0 Chloride 100 Carbon Dioxide 24 BUN 8 Creatinine 0.66 Glucose 112 H Calcium 9.1 - ABG Interpretation ABG results: PT/INR, D-dimer PT 12.5 Seconds (9.4-12.1) H 06/10/17 00:43 - VTE Documentation of Mechanical Device: Graduated compression elastic hosiery Consult Discharge Plan - Plan Referrals: NONE,PCP [Primary Care Provider] -
[2017-06-11] MEDS: hydrOXYzine pamoate 25 MG CAPSULE PO SCH (21:05)
[2017-06-12] MEDS: Ipratropium/Albuterol Neb 3 ML IH SCH ×6 (03:35→23:22)
[2017-06-12 05:53] LABS: Basophils % 0.1 %; Hematocrit 34.2 % (35.3-44.9); Hemoglobin 11.1 g/dL (11.5-15.4); Immature Granulocytes % 0.5 % (0-4); Lymphocytes # 0.9 K/mcL (0.6-4.6); Lymphocytes % 10.8 %; Mean Corpuscular HGB Conc 32.5 g/dL (31.6-35.5); Mean Corpuscular Volume 86.4 fL (83.0-100.0); Mean Platelet Volume 8.9 fL (9.4-12.4); Monocytes # 0.2 K/mcL (0.0-1.3); Monocytes % 2.6 %; Neutrophils # 7.4 K/mcL (1.6-8.9); Platelet Count 311 K/mcL (140-400); Red Blood Count 3.96 M/mcL (3.82-4.97); Red Cell Distribution Width 12.6 % (11.5-14.5)
[2017-06-12 06:24] LABS: BUN/Creatinine Ratio 13 (6-26); Blood Urea Nitrogen 9 mg/dL (7-20); Calcium 9.4 mg/dL (8.6-10.8); Carbon Dioxide 25 mEq/L (19-29); Chloride 100 mEq/L (98-109); Glucose 146 mg/dL (70-99); Osmolality,Calculated 277 (280-300); Potassium 4.6 mEq/L (3.5-4.5); Sodium 133 mEq/L (136-145); eGFR For African Americans > 60 (> 60); eGFR For Non-African Americans > 60 (> 60)
[2017-06-12] MEDS: predniSONE 20 MG TABLET PO SCH (08:26)
[2017-06-12 12:50] LABS: Lactate Dehydrogenase 235 Units/L (159-327); Total Protein 6.8 g/dL (6.0-8.3)
--- NOTE | 2017-06-12 12:51 | Procedure Note ---
<Steven Salazar - Last Filed: 06/12/17 12:47> Date of procedure: 06/12/17 Pre-op diagnosis: Pleural effusion Post-op diagnosis: same Procedure: Thoracentesis: Written consent was obtained from the patient. Timeout was performed. The right posterior chest wall was surveyed using ultrasound and a large pocket of fluid was identified within the pleural space. The site was marked. The patient was cleaned and draped in the usual sterile fashion. The skin and soft tissues were anesthetized using 1% lidocaine. A al in the skin was made and the catheter over needle was advanced through the soft tissues and into the pleural space. The catheter was advanced and the needle was withdrawn. Approximately 800 mL of straw-colored fluid were withdrawn and sent to the lab for analysis. The catheter was withdrawn intact. Pressure was held until adequate hemostasis was maintained. The patient tolerated the procedure well, there were no immediate complications. Postprocedure chest x-ray is pending. The attending physician, Dr. Ambrocio, was present for the entire procedure. Anesthesia: local (10cc of 1% lidocaine) Surgeon: Steven Salazar Estimated blood loss (cc): 0 IV fluids (cc): 0 Pathology: other (Pleural fluid sent to lab) Condition: stable Disposition: floor <Lexie Ambrocio - Last Filed: 06/12/17 15:47> Procedure: I agree with above documentation by i was present for the entire procedure. Post procedure CXR showed no evidence of pneumothorax.
[2017-06-12] MEDS ORDERED: Chloraseptic Spray 177 ML BOTTLE MM PRN (13:21)
--- NOTE | 2017-06-12 14:46 | Oncology Inp Consult Note ---
Date of Encounter: 06/12/17 Time of Encounter: 14:46 Assessment and Plan (1) Right lower lobe lung mass Status: Acute Assessment and plan: - I explained to Mr. Tena that the pathologist results are still pending, and that the final recommendations will be based on the pathology results. I spoke with pathology, and there is still not a pathologic diagnosis, but the sample was appropriate, so we should expect to have a diagnosis next week. Patient was informed. In view that the differential diagnosis included : SCLC and NSCLC, I would recommend to stay inpatient until the pathology results are available, in view that if this is SCLC, inpatient chemotherapy would be considered. Patient expressed agreement with the above recommendations. - At the time of the visit she denies shortness of breath, chest pain, although still requiring supplemental oxygen: 3LPM. - LDH within normal limits, and denies fever, night sweats, making the possibility of a high grade lymphoma less likely. - Please order CT abdomen/pelvis (2) Pleural effusion Status: Acute Assessment and plan: s/p Thoracentesis today, with removal of 800 cc of straw-colored fluid. Reports improvement of shortness of breath following procedure. - Follow up fluid cytology. (3) Postobstructive pneumonia Status: Acute Assessment and plan: - s/p bronchoscopy on 06/11/17. I appreciate pulmonology input. Management as per primary team with ID work up and empiric antibiotic coverage: ceftriaxone/ zithromax. -Agree with house admin that if pathology and staging work up is consistent with SCLC , radiation oncology should be contacted to consider inpatient radiation but again as discussed with pathology, we still do not have a pathologic diagnosis, so he should stay inpatient until results are available. - Data of Consult Requesting Physician: Fish Tellez MD Primary Care Provider: PCP NONE - Consult Narrative Reason for consult: Management of likely lung malignancy. History of present illness: Ms. Tena is a 81 year old female with history of COPD, current every day smoker , admitted due to shortness of breath. CT scan revealed large lung mass causing post obstructive pneumonia. Oncology consult was requested for further recommendations. [facility] [place] been experiencing shortness of breath for the last couple of weeks, what has been associated with green sputum , worse for the last couple of days, what brought her to the hospital. She reports shortness of breath with minimal activities. During her inpatient stay, she underwent a bronchoscopy yesterday, but pathology results are still not available. Today she underwent a thoracentesis with removal of 800 cc of fluid, no complications related to the procedure. She reports living by herself, being independent with ADLs, driving, doing groceries, cooking and taking care of her home chores. During the visit she denies acute complaints, including CP, SOB, nausea, vomiting. Past Med Surg Social Fam HX - Past Medical History Medical history: no medical history Psychiatric history: no psych history - Past Surgical History Surgical History: no surgical history - Social History Smoking Status: Current every day smoker Packs per day: 1.5-2 Smokeless Tobacco Status: No Alcohol use: none Drug use: none - Family History Mother Family Member Ethnicity: Non- Living Status: Age at : 63 Cause of : Stroke Hx Family Cardiac Disorders: Yes Father Living Status: Age at : 64 Cause of : Heart Attack Hx Family Cardiac Disorders: Yes Brother Living Status: Age at : 80 Cause of : NHatural causes Hx Family Cardiac Disorders: Yes Medications and Allergies Aspirin [Lo-Dose Aspirin EC] 81 mg PO DAILY 06/09/17 [History] 3 Allergy/AdvReac Type Severity Reaction Status Date / Time Penicillins AdvReac Rash Verified 06/09/17 12:06 Sulfa (Sulfonamide AdvReac Rash Verified 06/09/17 12:06 Antibiotics) Constitutional: Present: fatigue. Absent: headache(s) Eyes: Absent: diplopia Cardiovascular: Absent: chest pain with activity, diaphoresis Respiratory: Present: dyspnea. Absent: pain on inspiration Gastrointestinal: Absent: abdominal pain, diarrhea Musculoskeletal: Absent: joint swelling Neurological: Absent: behavioral changes, burning sensations Psychiatric: Absent: auditory hallucinations, hallucinations Hematologic/Lymphatic: Present: as per HPI Oncology - Exam - Constitutional Vitals: Temp Pulse Resp BP Pulse Ox 98.2 F 86 16 133/70 97 06/12/17 10:22 06/12/17 10:22 06/12/17 11:13 06/12/17 10:22 06/12/17 11:13 - Head Head exam: Present: normal inspection, normocephalic - Eye Eye exam: Present: EOMI, normal appearance - ENT ENT exam: Present: mucous membranes moist, normal exam - Neck Neck exam: Present: normal inspection. Absent: lymphadenopathy - Respiratory Respiratory exam: Present: CTAB, rales, wheezes (right sided wheezing.) - Cardiovascular Cardiovascular exam: Present: RRR - GI/Abdominal GI/Abdominal exam: Present: normal bowel sounds. Absent: organomegaly - Extremities Exam Extremities exam: Present: normal inspection. Absent: tenderness - Back Exam Back exam: Present: normal inspection. Absent: paraspinal tenderness - Neurological Exam Neurological exam: Present: oriented X3. Absent: altered - Psychiatric Psychiatric exam: Present: normal affect, normal mood - Skin Skin exam: Present: normal color. Absent: petechiae Oncology - Results Labs: Short CBC 06/12/17 Range/Units 04:33 WBC 8.6 (4.3-11.1) K/mcL Hgb 11.1 L (11.5-15.4) g/dL Hct 34.2 L (35.3-44.9) % Plt Count 311 (140-400) K/mcL Neutrophils # 7.4 (1.6-8.9) K/mcL BMP 06/12/17 04:33 Sodium 133 L Potassium 4.6 H Chloride 100 Carbon Dioxide 25 BUN 9 Creatinine 0.68 Glucose 146 H Calcium 9.4 Consult Discharge Plan - Plan Referrals: NONE,PCP [Primary Care Provider] -
[2017-06-12 14:55] LABS: RBC,Pleural Fluid 0.005 M/mcL
[2017-06-12 15:21] LABS: Appearance of Pleural Fl Cloudy (Clear)
--- NOTE | 2017-06-12 15:51 | Pulmonology Progress Note ---
Date of Encounter: 06/12/17 Time of Encounter: 11:00 Assessment and Plan (1) LAD (lymphadenopathy), mediastinal Current Visit: Yes Status: Acute Patient has extensive mediastinal and hilar LN concern for small cell ca did EBUS with TBNA today afternoon showed prelim results small ca Vs Lymphoma waiting for final results from cell block most likely due to small cell ca will wait for final results will call Medical oncology vs Radiation oncology. Explained the plan to the daughter. Oncology was consulted by hospitalist would like start inpatient chemotherapy if it is lymphoma if it small cell will contact radiation oncology for inpatient radiotherapy. (2) Hilar lymphadenopathy Current Visit: Yes Status: Acute Is due to same process most likely due to small cell ca Vs Lymphoma waiting for final pathology results (3) Right lower lobe lung mass Current Visit: Yes Status: Acute The lung mass plus the mediastinal adenopathy especially the sub carinal LN compressing the pulmonary artery once the pathology is confirmed will contact radiation oncology for probable evaluation of urgent radiation therapy as the mass is compressing the Bronchus intermedius ,RML and RLL bronchus and sub carinal LN compressing the pulmonary artery. If it is small cell will need inpatient radiotherapy. (4) Pneumonia Current Visit: Yes Status: Acute Patient has probable post obstructive pneumonia involving both lower and middle lobe of the right lung , BAL was done for respiratory culture . Will continue the current regimen of antibiotics. Qualifiers: Pneumonia type: due to unspecified organism Laterality: right Lung location: lower lobe of lung Qualified Code(s): J18.1 - Lobar pneumonia, unspecified organism (5) COPD (chronic obstructive pulmonary disease) Current Visit: Yes Status: Acute Patient has increased wheezing to add steroids to bronchodilators will treat as COPD exacerbation. Qualifiers: COPD type: emphysema Emphysema type: centrilobular Qualified Code(s): J43.2 - Centrilobular emphysema (6) Pleural effusion Current Visit: Yes Status: Acute Did thoracentesis today on the right side drained 800 ml patient start to have bouts of coughing spell abandoned the procedure , the fluid was sent for analysis and cytology ,post procedure X ray shows no evidence of pneumothorax. Subjective Principal diagnosis: Mediastinal Lymphadenopathy ,Hilar Lymphadenopathy Interval history: Patient presented with increased shortness of breadth , cough, sputum production and hemoptysis CT chest showed Hilar and Mediastinal Lymphadenopathy , with Right middle and lower lobe endobronchial compression concern for small cell Ca she underwent EBUS TBNA yesterday with Bronchoscopy airway exam the prelim cytology showed Small cell Lung Ca Vs Lymphoma. The airway exam showed no evidence of endobronchial lesion but there was some 75% compression of RML, RLL bronchus Objective PUL Vital signs: Last Vital Signs Temp 98.6 F 06/12/17 15:28 Pulse 95 06/12/17 15:28 Resp 18 06/12/17 15:28 BP 127/66 06/12/17 15:28 Pulse Ox 96 06/12/17 15:28 General appearance: other (mild respiratory distress) Auscultation: right: diminished breath sounds (in the basilar region), bilateral : wheezes (bilateral scattered wheezes ) Results - Laboratory Findings CBC and BMP: 06/12/17 04:33 06/12/17 04:33 PT/INR, D-dimer PT 12.5 Seconds (9.4-12.1) H 06/10/17 00:43 Abnormal lab findings: Abnormal lab results Hgb 11.1 g/dL (11.5-15.4) L 06/12/17 04:33 Hct 34.2 % (35.3-44.9) L 06/12/17 04:33 MPV 8.9 fL (9.4-12.4) L 06/12/17 04:33 PT 12.5 Seconds (9.4-12.1) H 06/10/17 00:43 Sodium 133 mEq/L (136-145) L 06/12/17 04:33 Potassium 4.6 mEq/L (3.5-4.5) H 06/12/17 04:33 Glucose 146 mg/dL (70-99) H 06/12/17 04:33 Calculated Osmolality 277 (280-300) L 06/12/17 04:33 Albumin 3.0 g/dL (3.5-5.0) L 06/10/17 00:43 Albumin/Globulin Ratio 0.9 (1.1-2.2) L 06/10/17 00:43 Pleural Appearance Cloudy (Clear) A 06/12/17 12:00 Pleural RBC 0.005 M/mcL (0.000-0.002) H 06/12/17 12:00 Pleural Tot Nuc Cell 1439 TNC/mcL (0-1000) H 06/12/17 12:00 - Microbiology Findings Microbiology Findings: Microbiology, Last 48 Hours 06/12/17 12:00 Body Fluid Culture - Preliminary Pleural Fluid 06/11/17 14:40 Sputum Culture - Preliminary Sputum 06/09/17 18:56 Blood Culture - Preliminary Peripheral Venipuncture No growth. 06/09/17 18:56 Blood Culture - Preliminary Peripheral Venipuncture No growth. - Clinical Findings Intake & Output: Intake & Output 06/11/17 06/12/17 06/12/17 23:59 07:59 15:59 Intake Total 240 / 240 200 / 200 Balance 240 / 240 200 / 200 Weight 71.8 kg - VTE Documentation of Mechanical Device: Graduated compression elastic hosiery Consult Discharge Plan - Plan Referrals: NONE,PCP [Primary Care Provider] -
--- NOTE | 2017-06-12 17:17 | Internal Med Progress Note ---
Date of Encounter: 06/12/17 Time of Encounter: 15:00 - Assessment and plan (1) Postobstructive pneumonia Current Visit: Yes Status: Acute Assessment and plan: Continue with ceftriaxone and azithromycin. Blood cultures negative. Sputum culture shows no growth. Oxygen by nasal cannula. (2) Hilar lymphadenopathy Current Visit: Yes Status: Acute Assessment and plan: Appreciate pulmonary recommendations. Status post bronchoscopy. Preliminary result suspicious for cancer cells. I have discussed the case with oncologist. After discussion with the pathologist there is no lead towards the diagnosis until the final stains are completed. Likely [place] final diagnosis on Thursday. (3) COPD (chronic obstructive pulmonary disease) Current Visit: Yes Status: Acute Assessment and plan: Inhaled albuterol and ipratropium. Qualifiers: COPD type: emphysema Emphysema type: centrilobular Qualified Code(s): J43.2 - Centrilobular emphysema (4) Tobacco abuse Current Visit: Yes Status: Acute Assessment and plan: Smoking cessation counseling provided. - Subjective Interval history: She reports 0/10 shortness of breath, improved from yesterday sputum production has cleared up. She is status post bronchoscopy yesterday. Denies chest pain. - Constitutional Vitals: Temp Pulse Resp BP Pulse Ox 98.6 F 95 18 127/66 96 06/12/17 15:28 06/12/17 15:28 06/12/17 15:28 06/12/17 15:28 06/12/17 15:28 General appearance: Present: A&O X 3, pleasant, no acute distress, answers questions appropriately - Respiratory Respiratory exam: Present: CTAB. Absent: accessory muscle use, rales, rhonchi, wheezes - Cardiovascular Cardiovascular exam: Present: RRR, +S1, +S2. Absent: diastolic murmur, gallop, rubs, systolic murmur - GI/Abdominal GI/Abdominal exam: Present: normal bowel sounds, soft, no peritoneal signs. Absent: distended, tenderness - Extremities Exam Extremities exam: Present: warm, radial pulses palpable and symmetrical. Absent : calf tenderness, cyanotic, pedal edema - Skin Skin exam: Present: dry, intact Internal Medicine: Result - Labs CBC & Chem 7: 06/12/17 04:33 06/12/17 04:33 Labs: Short CBC 06/12/17 Range/Units 04:33 WBC 8.6 (4.3-11.1) K/mcL Hgb 11.1 L (11.5-15.4) g/dL Hct 34.2 L (35.3-44.9) % Plt Count 311 (140-400) K/mcL Neutrophils # 7.4 (1.6-8.9) K/mcL BMP 06/12/17 04:33 Sodium 133 L Potassium 4.6 H Chloride 100 Carbon Dioxide 25 BUN 9 Creatinine 0.68 Glucose 146 H Calcium 9.4 - ABG Interpretation ABG results: PT/INR, D-dimer PT 12.5 Seconds (9.4-12.1) H 06/10/17 00:43 - Impressions Impressions Chest X-Ray 06/12/17 12:06 IMPRESSION: 1. Stable chest radiograph since 06/09/2017. No significant change in a moderate right pleural effusion status post thoracentesis. 2. No pneumothorax. D/ / 06/12/2017 12:35:43 Adwoa Navarrete MD / [email or web address] Interpreting Provider: Adwoa Navarrete MD - VTE Documentation of Mechanical Device: Graduated compression elastic hosiery Consult Discharge Plan - Plan Referrals: NONE,PCP [Primary Care Provider] -
[2017-06-12] MEDS: Azithromycin 500 MG in D5% in Water 250 ML IVPB SCH (17:29)
[2017-06-12] MEDS: cefTRIAXone 1,000 MG in Water for inj. (sterile) 10 ML IVP SCH (17:30)
[2017-06-12] MEDS: hydrOXYzine pamoate 25 MG CAPSULE PO SCH (22:12)
[2017-06-13 04:55] LABS: Basophils % 0.3 %; Eosinophils % 0.2 %; Hematocrit 31.7 % (35.3-44.9); Hemoglobin 10.1 g/dL (11.5-15.4); Immature Granulocytes % 0.5 % (0-4); Lymphocytes # 2.2 K/mcL (0.6-4.6); Mean Corpuscular HGB Conc 31.9 g/dL (31.6-35.5); Mean Corpuscular Hemoglobin 27.5 pg (28.0-33.3); Mean Corpuscular Volume 86.4 fL (83.0-100.0); Mean Platelet Volume 8.7 fL (9.4-12.4); Monocytes # 0.7 K/mcL (0.0-1.3); Monocytes % 4.9 %; Neutrophils # 11.4 K/mcL (1.6-8.9); Platelet Count 308 K/mcL (140-400); Red Blood Count 3.67 M/mcL (3.82-4.97); Red Cell Distribution Width 12.7 % (11.5-14.5); Segmented Neutrophils % 79.1 %
[2017-06-13] MEDS: Ipratropium/Albuterol Neb 3 ML IH SCH ×7 (04:58→23:04)
[2017-06-13 05:04] LABS: BUN/Creatinine Ratio 21 (6-26); Blood Urea Nitrogen 15 mg/dL (7-20); Calcium 8.6 mg/dL (8.6-10.8); Carbon Dioxide 24 mEq/L (19-29); Chloride 102 mEq/L (98-109); Glucose 110 mg/dL (70-99); Osmolality,Calculated 283 (280-300); Sodium 136 mEq/L (136-145); eGFR For African Americans > 60 (> 60); eGFR For Non-African Americans > 60 (> 60)
[2017-06-13] MEDS: predniSONE 20 MG TABLET PO SCH (09:44)
--- NOTE | 2017-06-13 10:25 | Pulmonology Progress Note ---
Date of Encounter: 06/13/17 Time of Encounter: 10:15 Assessment and Plan (1) LAD (lymphadenopathy), mediastinal Current Visit: Yes Status: Acute Patient has extensive mediastinal and hilar LN concern for small cell ca did EBUS with TBNA today afternoon showed prelim results small ca Vs Lymphoma waiting for final results from cell block most likely due to small cell ca will wait for final results will call Medical oncology vs Radiation oncology. Explained the plan to the daughter. Oncology was consulted by hospitalist would like start inpatient chemotherapy if it is lymphoma if it small cell radiation oncology for inpatient radiotherapy. Oncology already following as inpatient appreciate their input. (2) Hilar lymphadenopathy Current Visit: Yes Status: Acute Is due to same process most likely due to small cell ca Vs Lymphoma waiting for final pathology results (3) Right lower lobe lung mass Current Visit: Yes Status: Acute The lung mass plus the mediastinal adenopathy especially the sub carinal LN compressing the pulmonary artery once the pathology is confirmed will contact radiation oncology for probable evaluation of urgent radiation therapy as the mass is compressing the Bronchus intermedius ,RML and RLL bronchus and sub carinal LN compressing the pulmonary artery. If it is small cell will need inpatient radiotherapy. (4) Pneumonia Current Visit: Yes Status: Acute Patient has probable post obstructive pneumonia involving both lower and middle lobe of the right lung , BAL and Sputum the prelim growth is negative. Will continue the current regimen of antibiotics. Qualifiers: Pneumonia type: due to unspecified organism Laterality: right Lung location: lower lobe of lung Qualified Code(s): J18.1 - Lobar pneumonia, unspecified organism (5) COPD (chronic obstructive pulmonary disease) Current Visit: Yes Status: Acute Patient has increased wheezing to add steroids to bronchodilators will treat as COPD exacerbation. symptoms controlled will stop steroids after 5 days and monitor her symptoms. Qualifiers: COPD type: emphysema Emphysema type: centrilobular Qualified Code(s): J43.2 - Centrilobular emphysema (6) Pleural effusion Current Visit: Yes Status: Acute Did thoracentesis today on the right side drained 800 ml patient start to have bouts of coughing spell abandoned the procedure , the fluid was sent for analysis and cytology ,post procedure X ray shows no evidence of pneumothorax. Initial pleural fluid chemistry shows is exudative pending cytology results. Subjective Principal diagnosis: Mediastinal Lymphadenopathy ,Hilar Lymphadenopathy Interval history: Patient presented with increased shortness of breadth , cough, sputum production and hemoptysis CT chest showed Hilar and Mediastinal Lymphadenopathy , with Right middle and lower lobe endobronchial compression concern for small cell Ca she underwent EBUS TBNA yesterday with Bronchoscopy airway exam the prelim cytology showed Small cell Lung Ca Vs Lymphoma. The airway exam showed no evidence of endobronchial lesion but there was some 75% compression of RML, RLL bronchus 06/13 today patient doesnt have any active symptoms has some pain sometimes back side of the chest , not much cough and sputum production. Objective PUL Vital signs: Last Vital Signs Temp 98.0 F 06/13/17 06:48 Pulse 70 06/13/17 06:48 Resp 16 06/13/17 08:04 BP 125/69 06/13/17 06:48 Pulse Ox 94 06/13/17 08:04 Auscultation: right: diminished breath sounds (in the bases ), bilateral: wheezes (scattered wheezes) Results - Laboratory Findings CBC and BMP: 06/13/17 04:16 06/13/17 04:16 PT/INR, D-dimer PT 12.5 Seconds (9.4-12.1) H 06/10/17 00:43 Abnormal lab findings: Abnormal lab results WBC 14.4 K/mcL (4.3-11.1) H D 06/13/17 04:16 RBC 3.67 M/mcL (3.82-4.97) L 06/13/17 04:16 Hgb 10.1 g/dL (11.5-15.4) L 06/13/17 04:16 Hct 31.7 % (35.3-44.9) L 06/13/17 04:16 MCH 27.5 pg (28.0-33.3) L 06/13/17 04:16 MPV 8.7 fL (9.4-12.4) L 06/13/17 04:16 Neutrophils # 11.4 K/mcL (1.6-8.9) H 06/13/17 04:16 PT 12.5 Seconds (9.4-12.1) H 06/10/17 00:43 Glucose 110 mg/dL (70-99) H 06/13/17 04:16 Albumin 3.0 g/dL (3.5-5.0) L 06/10/17 00:43 Albumin/Globulin Ratio 0.9 (1.1-2.2) L 06/10/17 00:43 Pleural Appearance Cloudy (Clear) A 06/12/17 12:00 Pleural RBC 0.005 M/mcL (0.000-0.002) H 06/12/17 12:00 Pleural Tot Nuc Cell 1439 TNC/mcL (0-1000) H 06/12/17 12:00 - Microbiology Findings Microbiology Findings: Microbiology, Last 48 Hours 06/11/17 14:40 Sputum Culture - Preliminary Sputum 06/12/17 12:00 Body Fluid Culture - Preliminary Pleural Fluid 06/09/17 18:56 Blood Culture - Preliminary Peripheral Venipuncture No growth. 06/09/17 18:56 Blood Culture - Preliminary Peripheral Venipuncture No growth. - Clinical Findings Intake & Output: Intake & Output 06/12/17 06/13/17 06/13/17 23:59 07:59 15:59 Intake Total 240 / 240 240 / 240 Balance 240 / 240 240 / 240 Weight 72.1 kg - VTE Documentation of Mechanical Device: Graduated compression elastic hosiery Consult Discharge Plan - Plan Referrals: NONE,PCP [Primary Care Provider] -
[2017-06-13] MEDS ORDERED: Lacri-Lube 3.5 GM TUBE BOTH EYES PRN (16:09)
[2017-06-13] MEDS ORDERED: Artificial Tears SOLN 15 ML BOTTLE BOTH EYES PRN (17:01)
--- NOTE | 2017-06-13 17:18 | Internal Med Progress Note ---
Date of Encounter: 06/13/17 Time of Encounter: 13:00 - Assessment and plan (1) Postobstructive pneumonia Current Visit: Yes Status: Acute Assessment and plan: Continue with ceftriaxone and azithromycin. Blood cultures negative. Sputum culture shows no growth. Oxygen by nasal cannula. (2) Hilar lymphadenopathy Current Visit: Yes Status: Acute Assessment and plan: 06/13/2017: Discussed case with pulmonary. Continue to monitor. Continue with treatment for pneumonia. Awaiting pathology report. 06/12/2017: Appreciate pulmonary recommendations. Status post bronchoscopy. Preliminary result suspicious for cancer cells. I have discussed the case with oncologist. After discussion with the pathologist there is no lead towards the diagnosis until the final stains are completed. Likely [place] final diagnosis on Thursday. (3) COPD (chronic obstructive pulmonary disease) Current Visit: Yes Status: Acute Assessment and plan: Appears chronic, no evidence of acute exacerbation. No need for systemic steroids. Continue with ihaled albuterol and ipratropium. Qualifiers: COPD type: emphysema Emphysema type: centrilobular Qualified Code(s): J43.2 - Centrilobular emphysema (4) Tobacco abuse Current Visit: Yes Status: Acute Assessment and plan: Smoking cessation counseling provided. - Subjective Interval history: She reports reports worsening cough with mild shortness of breath when she has a coughing spell. She is status post bronchoscopy 2 days ago and thoracentesis yesterday. Denies chest pain. - Constitutional Vitals: Temp Pulse Resp BP Pulse Ox 98.0 F 85 16 145/75 92 06/13/17 15:23 06/13/17 15:23 06/13/17 15:23 06/13/17 15:23 06/13/17 15:23 General appearance: Present: A&O X 3, pleasant, no acute distress, answers questions appropriately - Respiratory Respiratory exam: Present: rales (Over the right lung), rhonchi. Absent: accessory muscle use, wheezes - Cardiovascular Cardiovascular exam: Present: RRR, +S1, +S2. Absent: diastolic murmur, gallop, rubs, systolic murmur - GI/Abdominal GI/Abdominal exam: Present: normal bowel sounds, soft, no peritoneal signs. Absent: distended, tenderness - Neurological Exam Neurological exam: Present: CN II-XII intact, oriented X3, no focal deficits. Absent: pronater drift, facial droop, speech deficit Internal Medicine: Result - Labs CBC & Chem 7: 06/13/17 04:16 06/13/17 04:16 Labs: Short CBC 06/13/17 Range/Units 04:16 WBC 14.4 H D (4.3-11.1) K/mcL Hgb 10.1 L (11.5-15.4) g/dL Hct 31.7 L (35.3-44.9) % Plt Count 308 (140-400) K/mcL Neutrophils # 11.4 H (1.6-8.9) K/mcL BMP 06/13/17 04:16 Sodium 136 Potassium 4.0 Chloride 102 Carbon Dioxide 24 BUN 15 Creatinine 0.70 Glucose 110 H Calcium 8.6 - ABG Interpretation ABG results: PT/INR, D-dimer PT 12.5 Seconds (9.4-12.1) H 06/10/17 00:43 - VTE Documentation of Mechanical Device: Graduated compression elastic hosiery Consult Discharge Plan - Plan Referrals: NONE,PCP [Primary Care Provider] -
[2017-06-13] MEDS: Azithromycin 500 MG in D5% in Water 250 ML IVPB SCH (18:03)
[2017-06-13] MEDS: cefTRIAXone 1,000 MG in Water for inj. (sterile) 10 ML IVP SCH (18:03)
--- NOTE | 2017-06-13 18:07 | Oncology Inp Progress Note ---
Date of Encounter: 06/13/17 Time of Encounter: 17:00 (1) Right lower lobe lung mass Current Visit: Yes Status: Acute Assessment and plan: Extensive mediastinal and right hilar adenopathy suspicious for malignancy and rt mid lober post obstructive pneumonitis, concern for small cell lung cancer- final pathology pending, status post bronchoscopy EBUS, thoracentesis fluid cytology pathology results pending. Shortness of breath from COPD, postobstructive pneumonia pleural effusion, has improved. Antibiotics Levaquin, see azithromycin to be continued await final path and plan traetment as outpatient as she is clinically stable. CT imaging abdomen for staging purposes Plan d/w patient in detail Oncology: Subj Interval history: Shortness of breath improved since thoracentesis. She denies any pain currently. - Constitutional Vitals: Vital Signs Temp Pulse Resp BP Pulse Ox 06/13/17 15:23 98.0 F 85 16 145/75 92 06/13/17 11:36 97.9 F 86 15 114/62 92 06/13/17 11:03 16 93 06/13/17 08:04 16 94 06/13/17 06:48 98.0 F 70 16 125/69 95 06/13/17 03:38 98.1 F 76 16 132/67 97 06/13/17 00:28 98.2 F 83 14 124/60 96 06/12/17 19:54 18 96 06/12/17 19:18 98.0 F 98 14 125/66 90 Intake and Output 06/13/17 06/13/17 06/13/17 07:59 15:59 23:59 Intake Total 480 / 480 Balance 480 / 480 Intake: Oral 480 / 480 Other: Meal Lunch Percent of Meal Consumed 100% Weight 72.1 kg Patient Weight 06/13/17 23:59 Weight 72.1 kg General appearance: no acute distress - Head Head exam: Present: atraumatic, normal inspection - Eye Eye exam: Present: sclera anicteric - ENT ENT exam: Present: normal exam - Neck Neck exam: Present: full ROM, normal inspection - Respiratory Additional comments: decr ae елена - Cardiovascular Cardiovascular exam: Present: +S1, +S2 - GI/Abdominal GI/Abdominal exam: Present: normal bowel sounds, soft - Neurological Exam Neurological exam: Present: alert, CN II-XII intact, oriented X3 Oncology: Obj Data - Labs CBC & Chem 7: 06/13/17 04:16 06/13/17 04:16 Labs: Laboratory Results - last 24 hr 06/13/17 06/13/17 04:16 04:16 WBC 14.4 H D RBC 3.67 L Hgb 10.1 L Hct 31.7 L MCV 86.4 MCH 27.5 L MCHC 31.9 RDW 12.7 Plt Count 308 MPV 8.7 L Immature Gran % 0.5 Seg Neutrophils % 79.1 Lymphocytes % 15.0 Monocytes % 4.9 Eosinophils % 0.2 Basophils % 0.3 Neutrophils # 11.4 H Lymphocytes # 2.2 Monocytes # 0.7 Eosinophils # 0.0 Basophils # 0.0 Sodium 136 Potassium 4.0 Chloride 102 Carbon Dioxide 24 BUN 15 Creatinine 0.70 Est GFR ( Amer) > 60 Est GFR (Non-Af Amer) > 60 BUN/Creatinine Ratio 21 Glucose 110 H Calculated Osmolality 283 Calcium 8.6 - ABG Interpretation ABG results: PT/INR, D-dimer PT 12.5 Seconds (9.4-12.1) H 06/10/17 00:43 Consult Discharge Plan - Plan Referrals: NONE,PCP [Primary Care Provider] -
[2017-06-13] MEDS: hydrOXYzine pamoate 25 MG CAPSULE PO SCH (20:06)
[2017-06-14] MEDS: Ipratropium/Albuterol Neb 3 ML IH SCH ×5 (03:20→19:47)
[2017-06-14 04:17] LABS: Basophils % 0.3 %; Eosinophils % 0.2 %; Hematocrit 34.1 % (35.3-44.9); Immature Granulocytes % 0.6 % (0-4); Lymphocytes # 1.9 K/mcL (0.6-4.6); Mean Corpuscular HGB Conc 32.3 g/dL (31.6-35.5); Mean Corpuscular Hemoglobin 27.8 pg (28.0-33.3); Mean Corpuscular Volume 86.3 fL (83.0-100.0); Monocytes # 0.7 K/mcL (0.0-1.3); Monocytes % 5.7 %; Neutrophils # 9.2 K/mcL (1.6-8.9); Platelet Count 352 K/mcL (140-400); Red Blood Count 3.95 M/mcL (3.82-4.97); Red Cell Distribution Width 12.7 % (11.5-14.5); Segmented Neutrophils % 77.2 %
[2017-06-14 04:40] LABS: BUN/Creatinine Ratio 24 (6-26); Blood Urea Nitrogen 17 mg/dL (7-20); Calcium 9.1 mg/dL (8.6-10.8); Carbon Dioxide 27 mEq/L (19-29); Chloride 100 mEq/L (98-109); Glucose 142 mg/dL (70-99); Osmolality,Calculated 286 (280-300); Potassium 3.9 mEq/L (3.5-4.5); Sodium 136 mEq/L (136-145); eGFR For African Americans > 60 (> 60); eGFR For Non-African Americans > 60 (> 60)
[2017-06-14] MEDS: predniSONE 20 MG TABLET PO SCH (08:20)
[2017-06-14] MEDS: cefTRIAXone 1,000 MG in Water for inj. (sterile) 10 ML IVP SCH (18:04)
[2017-06-14] MEDS: Azithromycin 500 MG in D5% in Water 250 ML IVPB SCH (18:04)
[2017-06-14] MEDS: hydrOXYzine pamoate 25 MG CAPSULE PO SCH (19:31)
--- NOTE | 2017-06-14 19:45 | Internal Med Progress Note ---
Date of Encounter: 06/14/17 Time of Encounter: 11:00 - Assessment and plan (1) Postobstructive pneumonia Current Visit: Yes Status: Acute Assessment and plan: Continue with ceftriaxone and azithromycin. Blood cultures negative. Sputum culture shows no growth. White blood cell count though elevated, trending down. Oxygen by nasal cannula. (2) Hilar lymphadenopathy Current Visit: Yes Status: Acute Assessment and plan: 06/14/2017: Awaiting final diagnosis. We will follow up with oncology. 06/13/2017: Discussed case with pulmonary. Continue to monitor. Continue with treatment for pneumonia. Awaiting pathology report. 06/12/2017: Appreciate pulmonary recommendations. Status post bronchoscopy. Preliminary result suspicious for cancer cells. (3) COPD (chronic obstructive pulmonary disease) Current Visit: Yes Status: Acute Assessment and plan: Started on oral prednisone by pulmonary. Continue with inhaled albuterol and ipratropium. Qualifiers: COPD type: emphysema Emphysema type: centrilobular Qualified Code(s): J43.2 - Centrilobular emphysema (4) Tobacco abuse Current Visit: Yes Status: Acute Assessment and plan: Smoking cessation counseling provided. - Subjective Interval history: She reports reports mild cough, no sputum production, stable from yesterday. She is status post bronchoscopy and thoracentesis. Denies chest pain. - Constitutional Vitals: Temp Pulse Resp BP Pulse Ox 97.5 F L 84 17 138/67 94 06/14/17 19:05 06/14/17 19:05 06/14/17 19:05 06/14/17 19:05 06/14/17 19:34 General appearance: Present: A&O X 3, pleasant, no acute distress, answers questions appropriately - Respiratory Respiratory exam: Present: CTAB, rales (rales and inspiratory and expiratory wheezes right lung), wheezes. Absent: accessory muscle use, rhonchi - Cardiovascular Cardiovascular exam: Present: RRR, +S1, +S2. Absent: diastolic murmur, gallop, rubs, systolic murmur - GI/Abdominal GI/Abdominal exam: Present: normal bowel sounds, soft, no peritoneal signs. Absent: distended, tenderness - Neurological Exam Neurological exam: Present: CN II-XII intact, oriented X3, no focal deficits. Absent: pronater drift, facial droop, speech deficit Internal Medicine: Result - Labs CBC & Chem 7: 11/12/17 03:04 06/14/17 03:04 Labs: Short CBC 06/14/17 Range/Units 03:04 WBC 12.0 H (4.3-11.1) K/mcL Hgb 11.0 L (11.5-15.4) g/dL Hct 34.1 L (35.3-44.9) % Plt Count 352 (140-400) K/mcL Neutrophils # 9.2 H (1.6-8.9) K/mcL BMP 06/14/17 03:04 Sodium 136 Potassium 3.9 Chloride 100 Carbon Dioxide 27 BUN 17 Creatinine 0.72 Glucose 142 H Calcium 9.1 - ABG Interpretation ABG results: PT/INR, D-dimer PT 12.5 Seconds (9.4-12.1) H 06/10/17 00:43 - VTE Documentation of Mechanical Device: Graduated compression elastic hosiery Consult Discharge Plan - Plan Referrals: NONE,PCP [Primary Care Provider] -
[2017-06-15] MEDS: Ipratropium/Albuterol Neb 3 ML IH SCH ×6 (00:01→19:59)
[2017-06-15 05:08] LABS: Basophils # 0.1 K/mcL (0.0-0.2); Basophils % 0.7 %; Eosinophils # 0.1 K/mcL (0.0-0.6); Eosinophils % 0.9 %; Hematocrit 36.8 % (35.3-44.9); Hemoglobin 11.8 g/dL (11.5-15.4); Immature Granulocytes % 1.1 % (0-4); Lymphocytes # 3.3 K/mcL (0.6-4.6); Lymphocytes % 29.3 %; Mean Corpuscular HGB Conc 32.1 g/dL (31.6-35.5); Mean Corpuscular Hemoglobin 27.5 pg (28.0-33.3); Mean Corpuscular Volume 85.8 fL (83.0-100.0); Mean Platelet Volume 8.7 fL (9.4-12.4); Monocytes # 0.8 K/mcL (0.0-1.3); Monocytes % 6.8 %; Neutrophils # 6.8 K/mcL (1.6-8.9); Platelet Count 344 K/mcL (140-400); Red Blood Count 4.29 M/mcL (3.82-4.97); Red Cell Distribution Width 12.9 % (11.5-14.5); Segmented Neutrophils % 61.2 %
[2017-06-15 05:22] LABS: BUN/Creatinine Ratio 23 (6-26); Blood Urea Nitrogen 17 mg/dL (7-20); Calcium 9.3 mg/dL (8.6-10.8); Carbon Dioxide 26 mEq/L (19-29); Chloride 99 mEq/L (98-109); Glucose 99 mg/dL (70-99); Osmolality,Calculated 280 (280-300); Potassium 3.7 mEq/L (3.5-4.5); Sodium 134 mEq/L (136-145); eGFR For African Americans > 60 (> 60); eGFR For Non-African Americans > 60 (> 60)
[2017-06-15] MEDS: predniSONE 20 MG TABLET PO SCH (09:06)
[2017-06-15] MEDS: cefTRIAXone 1,000 MG in Water for inj. (sterile) 10 ML IVP SCH (17:54)
[2017-06-15] MEDS: Azithromycin 500 MG in D5% in Water 250 ML IVPB SCH (17:55)
--- NOTE | 2017-06-15 18:53 | Internal Med Progress Note ---
Date of Encounter: 06/15/17 Time of Encounter: 11:00 - Assessment and plan (1) Postobstructive pneumonia Current Visit: Yes Status: Acute Assessment and plan: Continue with ceftriaxone and azithromycin. Blood cultures negative. Sputum culture shows no growth. White blood cell count though elevated, trending down. Oxygen by nasal cannula. (2) Hilar lymphadenopathy Current Visit: Yes Status: Acute Assessment and plan: 06/15/2017: Awaiting biopsy result. Awaiting input from oncology. Per my discussion with the oncologist 3 days ago she cannot be discharged if this is lymphoma (as it would be an aggressive B-cell lymphoma) or small cell lung cancer. 06/14/2017: Awaiting final diagnosis. We will follow up with oncology. 06/13/2017: Discussed case with pulmonary. Continue to monitor. Continue with treatment for pneumonia. Awaiting pathology report. 06/12/2017: Appreciate pulmonary recommendations. Status post bronchoscopy. Preliminary result suspicious for cancer cells. (3) COPD (chronic obstructive pulmonary disease) Current Visit: Yes Status: Acute Assessment and plan: Started on oral prednisone by pulmonary. Continue with inhaled albuterol and ipratropium. Qualifiers: COPD type: emphysema Emphysema type: centrilobular Qualified Code(s): J43.2 - Centrilobular emphysema (4) Tobacco abuse Current Visit: Yes Status: Acute Assessment and plan: Smoking cessation counseling provided. - Subjective Interval history: She reports reports mild cough, no sputum production, stable from yesterday. She is status post bronchoscopy and thoracentesis. Denies chest pain. Denies fever and diarrhea. - Constitutional Vitals: Temp Pulse Resp BP Pulse Ox 98.2 F 94 16 151/73 98 06/15/17 14:45 06/15/17 14:45 06/15/17 15:58 06/15/17 14:45 06/15/17 15:58 General appearance: Present: A&O X 3, pleasant, no acute distress, answers questions appropriately - Respiratory Respiratory exam: Present: CTAB, rales. Absent: accessory muscle use, rhonchi, wheezes - Cardiovascular Cardiovascular exam: Present: RRR, +S1, +S2. Absent: diastolic murmur, gallop, rubs, systolic murmur - Extremities Exam Extremities exam: Present: warm, radial pulses palpable and symmetrical. Absent : calf tenderness, cyanotic, pedal edema Internal Medicine: Result - Labs CBC & Chem 7: 06/15/17 04:50 06/15/17 04:50 Labs: Short CBC 06/15/17 Range/Units 04:50 WBC 11.1 (4.3-11.1) K/mcL Hgb 11.8 (11.5-15.4) g/dL Hct 36.8 (35.3-44.9) % Plt Count 344 (140-400) K/mcL Neutrophils # 6.8 (1.6-8.9) K/mcL BMP 06/15/17 04:50 Sodium 134 L Potassium 3.7 Chloride 99 Carbon Dioxide 26 BUN 17 Creatinine 0.74 Glucose 99 Calcium 9.3 - ABG Interpretation ABG results: PT/INR, D-dimer PT 12.5 Seconds (9.4-12.1) H 06/10/17 00:43 - VTE Documentation of Mechanical Device: Graduated compression elastic hosiery Consult Discharge Plan - Plan Referrals: NONE,PCP [Primary Care Provider] -
[2017-06-15] MEDS: hydrOXYzine pamoate 25 MG CAPSULE PO SCH (22:03)
[2017-06-16] MEDS: Ipratropium/Albuterol Neb 3 ML IH SCH ×7 (00:13→23:34)
[2017-06-16 04:18] LABS: Basophils # 0.1 K/mcL (0.0-0.2); Basophils % 0.5 %; Eosinophils # 0.1 K/mcL (0.0-0.6); Eosinophils % 0.5 %; Hematocrit 34.7 % (35.3-44.9); Hemoglobin 11.4 g/dL (11.5-15.4); Lymphocytes # 2.5 K/mcL (0.6-4.6); Lymphocytes % 23.2 %; Mean Corpuscular HGB Conc 32.9 g/dL (31.6-35.5); Mean Corpuscular Hemoglobin 27.9 pg (28.0-33.3); Mean Corpuscular Volume 84.8 fL (83.0-100.0); Mean Platelet Volume 8.8 fL (9.4-12.4); Monocytes # 0.8 K/mcL (0.0-1.3); Neutrophils # 7.4 K/mcL (1.6-8.9); Platelet Count 347 K/mcL (140-400); Red Blood Count 4.09 M/mcL (3.82-4.97); Red Cell Distribution Width 12.8 % (11.5-14.5); Segmented Neutrophils % 67.8 %
[2017-06-16 04:32] LABS: BUN/Creatinine Ratio 23 (6-26); Blood Urea Nitrogen 15 mg/dL (7-20); Calcium 9.2 mg/dL (8.6-10.8); Carbon Dioxide 27 mEq/L (19-29); Chloride 101 mEq/L (98-109); Glucose 115 mg/dL (70-99); Osmolality,Calculated 282 (280-300); Potassium 3.6 mEq/L (3.5-4.5); Sodium 135 mEq/L (136-145); eGFR For African Americans > 60 (> 60); eGFR For Non-African Americans > 60 (> 60)
[2017-06-16] MEDS: predniSONE 20 MG TABLET PO SCH (07:39)
[2017-06-16] MEDS: 0.9 % Sodium Chloride 1,000 ML IVC SCH (11:28)
--- NOTE | 2017-06-16 13:49 | Oncology Inp Progress Note ---
Date of Encounter: 06/16/17 Time of Encounter: 12:00 (1) Right lower lobe lung mass Current Visit: Yes Status: Acute Assessment and plan: Small cell lung cancer-extensive mediastinal and right hilar adenopathy and rt mid lobe post obstructive pneumonitis, thoracentesis cytology neg, broch bx small cell lung cancer CT abd imaging, head with contrast (does not want MRI) today prior to in- patient chemotherapy with carbo/LR15--bwk to bulky mediastinal disease and expected delay in scheduling outpatient chemotherapy Post obstructive pneumonitis-on antibiotics-SOB improving, hx COPD. IVF, allopurinol today. Carboplatin etoposide D1-D3 to start tomorrow. Chemotherapy education provided, written info provided. Monitor labs, outpt neulasta. Role for radiation therapy after evaluating staging Path findings d/w pathologist, imaging and bx discussed with patient son and daughter in law. Plan d/w patient in detail Oncology: Subj Interval history: DEnies SOB at rest, feels well. - Constitutional Vitals: Vital Signs Temp Pulse Resp BP Pulse Ox 06/16/17 11:13 98.1 F 77 15 128/59 93 06/16/17 10:58 18 92 06/16/17 08:00 18 89 06/16/17 07:53 97.8 F 72 16 137/82 98 06/16/17 03:01 98.2 F 78 16 132/68 95 06/15/17 22:47 98.0 F 82 14 149/71 93 06/15/17 20:00 14 97 06/15/17 19:25 97.7 F 88 18 170/75 95 06/15/17 15:58 16 98 06/15/17 14:45 98.2 F 94 16 151/73 91 Intake and Output 06/15/17 06/16/17 06/16/17 23:59 07:59 15:59 Intake Total 270 / 270 240 / 240 Balance 270 / 270 240 / 240 Intake: IV Fluids 270 / 270 Rocephin 1,000 MG In Water for 20 / 20 inj. (sterile) 10 ML @ 300 mls/ hr IVP Q24H ANUSHA Rx#:[id number] Zithromax 500 mg In Dextrose 5% 250 / 250 250 ML @ 250 mls/hr IVPB Q24H ANUSHA Rx#:[id number] Oral 240 / 240 Other: Meal Breakfast Percent of Meal Consumed 100% Weight 73.709 kg Patient Weight 06/16/17 23:59 Weight 73.709 kg General appearance: no acute distress - Head Head exam: Present: atraumatic - Eye Eye exam: Present: EOMI, sclera anicteric - Neck Neck exam: Present: full ROM - Respiratory Respiratory exam: Present: decreased breath sounds - Cardiovascular Cardiovascular exam: Present: +S1, +S2 - GI/Abdominal GI/Abdominal exam: Present: normal bowel sounds, soft - Extremities Exam Extremities exam: Present: normal inspection - Neurological Exam Neurological exam: Present: alert, CN II-XII intact, oriented X3 - Psychiatric Psychiatric exam: Present: normal affect Oncology: Obj Data - Labs CBC & Chem 7: 06/16/17 03:26 06/16/17 03:26 Labs: Laboratory Results - last 24 hr 06/16/17 06/16/17 03:26 03:26 WBC 10.9 RBC 4.09 Hgb 11.4 L Hct 34.7 L MCV 84.8 MCH 27.9 L MCHC 32.9 RDW 12.8 Plt Count 347 MPV 8.8 L Immature Gran % 1.0 Seg Neutrophils % 67.8 Lymphocytes % 23.2 Monocytes % 7.0 Eosinophils % 0.5 Basophils % 0.5 Neutrophils # 7.4 Lymphocytes # 2.5 Monocytes # 0.8 Eosinophils # 0.1 Basophils # 0.1 Sodium 135 L Potassium 3.6 Chloride 101 Carbon Dioxide 27 BUN 15 Creatinine 0.65 Est GFR ( Amer) > 60 Est GFR (Non-Af Amer) > 60 BUN/Creatinine Ratio 23 Glucose 115 H Calculated Osmolality 282 Calcium 9.2 - ABG Interpretation ABG results: PT/INR, D-dimer PT 12.5 Seconds (9.4-12.1) H 06/10/17 00:43 Consult Discharge Plan - Plan Referrals: NONE,PCP [Primary Care Provider] -
--- NOTE | 2017-06-16 15:26 | Event Note ---
Date of Encounter: 06/16/17 Time of Encounter: 15:[address] + for metastatic Small Cell Lung CA. (Pleural Fluid negative). ONcology Following. Plan to start ChemoTx. Pulmonary will sign off please call with questions.
[2017-06-16] MEDS: cefTRIAXone 1,000 MG in Water for inj. (sterile) 10 ML IVP SCH (18:32)
--- NOTE | 2017-06-16 18:56 | Internal Med Progress Note ---
Date of Encounter: 06/16/17 Time of Encounter: 10:00 - Assessment and plan (1) Postobstructive pneumonia Current Visit: Yes Status: Acute Assessment and plan: Continue with ceftriaxone and azithromycin to Complete a 10 day course.. Blood cultures negative. Sputum culture shows no growth. White blood cell count though elevated, trending down. Oxygen by nasal cannula. (2) Hilar lymphadenopathy Current Visit: Yes Status: Acute Assessment and plan: 06/16/2017: Pathology report from transbronchial ultrasound guided biopsy of mediastinal lymph node reveals small cell lung cancer. I discussed the case with oncology. They recommend initiation of chemotherapy inpatient. We will obtain a CT abdomen and pelvis with oral and IV contrast for staging. Per oncology recommendations MRI of the brain is not necessary at this time. Appreciate oncology input. 06/15/2017: Awaiting biopsy result. Awaiting input from oncology. Per my discussion with the oncologist 3 days ago she cannot be discharged if this is lymphoma (as it would be an aggressive B-cell lymphoma) or small cell lung cancer. 06/14/2017: Awaiting final diagnosis. We will follow up with oncology. 06/13/2017: Discussed case with pulmonary. Continue to monitor. Continue with treatment for pneumonia. Awaiting pathology report. 06/12/2017: Appreciate pulmonary recommendations. Status post bronchoscopy. Preliminary result suspicious for cancer cells. (3) COPD (chronic obstructive pulmonary disease) Current Visit: Yes Status: Acute Assessment and plan: Started on oral prednisone by pulmonary. Continue with inhaled albuterol and ipratropium. Qualifiers: COPD type: emphysema Emphysema type: centrilobular Qualified Code(s): J43.2 - Centrilobular emphysema (4) Tobacco abuse Current Visit: Yes Status: Acute Assessment and plan: Smoking cessation counseling provided. - Subjective Interval history: She reports reports dry cough, stable from yesterday. Denies shortness of breath. She is status post bronchoscopy and thoracentesis. Denies chest pain. Denies fever and diarrhea. - Constitutional Vitals: Temp Pulse Resp BP Pulse Ox 98.1 F 80 18 147/70 93 06/16/17 15:46 06/16/17 15:46 06/16/17 16:32 06/16/17 15:46 06/16/17 16:32 General appearance: Present: A&O X 3, pleasant, no acute distress, answers questions appropriately - Respiratory Respiratory exam: Present: CTAB. Absent: accessory muscle use, rales, rhonchi, wheezes - Cardiovascular Cardiovascular exam: Present: RRR, +S1, +S2. Absent: diastolic murmur, gallop, rubs, systolic murmur - GI/Abdominal GI/Abdominal exam: Present: normal bowel sounds, soft, no peritoneal signs. Absent: distended, tenderness - Extremities Exam Extremities exam: Present: warm, radial pulses palpable and symmetrical. Absent : calf tenderness, cyanotic, pedal edema Internal Medicine: Result - Labs CBC & Chem 7: 06/16/17 03:26 06/16/17 03:26 Labs: Short CBC 06/16/17 Range/Units 03:26 WBC 10.9 (4.3-11.1) K/mcL Hgb 11.4 L (11.5-15.4) g/dL Hct 34.7 L (35.3-44.9) % Plt Count 347 (140-400) K/mcL Neutrophils # 7.4 (1.6-8.9) K/mcL BMP 06/16/17 03:26 Sodium 135 L Potassium 3.6 Chloride 101 Carbon Dioxide 27 BUN 15 Creatinine 0.65 Glucose 115 H Calcium 9.2 - ABG Interpretation ABG results: PT/INR, D-dimer PT 12.5 Seconds (9.4-12.1) H 06/10/17 00:43 - Impressions Impressions Abdomen/Pelvis CT 06/16/17 13:30 IMPRESSION: 1. No evidence of primary malignancy or metastatic disease in the abdomen and pelvis 2. Right hilar and subcarinal masses with pleural metastases and pleural effusion 3. Cholelithiasis D/ / Cuco Rodriguez MD / Cuco Rodriguez MD Interpreting Provider: Cuco Rodriguez MD - VTE Documentation of Mechanical Device: Graduated compression elastic hosiery Consult Discharge Plan - Plan Referrals: NONE,PCP [Primary Care Provider] -
[2017-06-16] MEDS: hydrOXYzine pamoate 25 MG CAPSULE PO SCH (21:11)
[2017-06-17] MEDS ORDERED: Famotidine 20 MG/2 ML VIAL IV PRN
[2017-06-17] MEDS ORDERED: *HR* LORazepam 2 MG/ML VIAL IV PRN
[2017-06-17] MEDS ORDERED: Dexamethasone 10 MG/ML VIAL IV PRN
[2017-06-17] MEDS ORDERED: Prochlorperazine 10 MG/2 ML VIAL IV PRN
[2017-06-17] MEDS: Ipratropium/Albuterol Neb 3 ML IH SCH ×2 (03:58→08:03)
[2017-06-17 04:05] LABS: BUN/Creatinine Ratio 20 (6-26); Basophils # 0.1 K/mcL (0.0-0.2); Basophils % 0.9 %; Blood Urea Nitrogen 13 mg/dL (7-20); Calcium 8.7 mg/dL (8.6-10.8); Carbon Dioxide 24 mEq/L (19-29); Chloride 106 mEq/L (98-109); Eosinophils # 0.1 K/mcL (0.0-0.6); Eosinophils % 0.9 %; Glucose 100 mg/dL (70-99); Hematocrit 34.5 % (35.3-44.9); Immature Granulocytes % 1.1 % (0-4); Lymphocytes # 2.1 K/mcL (0.6-4.6); Lymphocytes % 22.1 %; Mean Corpuscular HGB Conc 31.9 g/dL (31.6-35.5); Mean Corpuscular Hemoglobin 27.5 pg (28.0-33.3); Mean Corpuscular Volume 86.3 fL (83.0-100.0); Mean Platelet Volume 8.7 fL (9.4-12.4); Monocytes # 0.7 K/mcL (0.0-1.3); Monocytes % 6.7 %; Neutrophils # 6.6 K/mcL (1.6-8.9); Osmolality,Calculated 286 (280-300); Platelet Count 359 K/mcL (140-400); Potassium 3.8 mEq/L (3.5-4.5); Red Cell Distribution Width 12.8 % (11.5-14.5); Segmented Neutrophils % 68.3 %; Sodium 138 mEq/L (136-145); eGFR For African Americans > 60 (> 60); eGFR For Non-African Americans > 60 (> 60)
[2017-06-17] MEDS ORDERED: Ipratropium/Albuterol Neb 3 ML IH PRN (08:05)
[2017-06-17] MEDS: Azithromycin 250 MG TABLET PO SCH (09:20)
[2017-06-17] MEDS: predniSONE 20 MG TABLET PO SCH (09:20)
[2017-06-17] MEDS ORDERED: Dexamethasone 10 MG/ML VIAL IV SCH (17:00)
[2017-06-17] MEDS ORDERED: ETOPOSIDE IV SCH (18:00)
[2017-06-17] MEDS ORDERED: SODIUM CHLORIDE 0.9% IV SCH ×2 (18:00→19:00)
--- NOTE | 2017-06-17 18:14 | Internal Med Progress Note ---
Date of Encounter: 06/17/17 Time of Encounter: 13:00 - Assessment and plan (1) Postobstructive pneumonia Current Visit: Yes Status: Acute Assessment and plan: Continue with ceftriaxone and azithromycin today at day 8/10. Blood cultures negative. Sputum culture shows no growth. Oxygen by nasal cannula. (2) Hilar lymphadenopathy Current Visit: Yes Status: Acute Assessment and plan: 06/17/2017: Patient is scheduled to start first cycle of chemotherapy per oncology. Continue with IV hydration normal saline at 75 mL per hour. 06/16/2017: Pathology report from transbronchial ultrasound guided biopsy of mediastinal lymph node reveals small cell lung cancer. I discussed the case with oncology. They recommend initiation of chemotherapy inpatient. We will obtain a CT abdomen and pelvis with oral and IV contrast for staging. Per oncology recommendations MRI of the brain is not necessary at this time. Appreciate oncology input. 06/15/2017: Awaiting biopsy result. Awaiting input from oncology. Per my discussion with the oncologist 3 days ago she cannot be discharged if this is lymphoma (as it would be an aggressive B-cell lymphoma) or small cell lung cancer. 06/14/2017: Awaiting final diagnosis. We will follow up with oncology. 06/13/2017: Discussed case with pulmonary. Continue to monitor. Continue with treatment for pneumonia. Awaiting pathology report. 06/12/2017: Appreciate pulmonary recommendations. Status post bronchoscopy. Preliminary result suspicious for cancer cells. (3) COPD (chronic obstructive pulmonary disease) Current Visit: Yes Status: Acute Assessment and plan: Continue with oral prednisone. Continue with inhaled albuterol and ipratropium. Qualifiers: COPD type: emphysema Emphysema type: centrilobular Qualified Code(s): J43.2 - Centrilobular emphysema (4) Tobacco abuse Current Visit: Yes Status: Acute Assessment and plan: Smoking cessation counseling provided. - Subjective Interval history: She reports reports cough more productive compared to yesterday. Denies shortness of breath. She is status post bronchoscopy and thoracentesis. Lymph node biopsy reveals metastatic small cell lung cancer. Denies chest pain. Denies fever and diarrhea. - Constitutional Vitals: Temp Pulse Resp BP Pulse Ox 98.3 F 89 16 132/67 92 06/17/17 10:38 06/17/17 10:38 06/17/17 10:38 06/17/17 10:38 06/17/17 10:38 General appearance: Present: A&O X 3, pleasant, no acute distress, answers questions appropriately - Respiratory Respiratory exam: Present: CTAB. Absent: accessory muscle use, rales, rhonchi, wheezes - Cardiovascular Cardiovascular exam: Present: RRR, +S1, +S2. Absent: diastolic murmur, gallop, rubs, systolic murmur - GI/Abdominal GI/Abdominal exam: Present: normal bowel sounds, soft, no peritoneal signs. Absent: distended, tenderness - Neurological Exam Neurological exam: Present: CN II-XII intact, oriented X3, no focal deficits. Absent: pronater drift, facial droop, speech deficit Internal Medicine: Result - Labs CBC & Chem 7: 06/17/17 03:35 06/17/17 03:35 Labs: Short CBC 06/17/17 Range/Units 03:35 WBC 9.6 (4.3-11.1) K/mcL Hgb 11.0 L (11.5-15.4) g/dL Hct 34.5 L (35.3-44.9) % Plt Count 359 (140-400) K/mcL Neutrophils # 6.6 (1.6-8.9) K/mcL BMP 06/17/17 03:35 Sodium 138 Potassium 3.8 Chloride 106 Carbon Dioxide 24 BUN 13 Creatinine 0.65 Glucose 100 H Calcium 8.7 - ABG Interpretation ABG results: PT/INR, D-dimer PT 12.5 Seconds (9.4-12.1) H 06/10/17 00:43 - Impressions Impressions Head CT 06/17/17 08:30 IMPRESSION: 1. No acute intracranial abnormality. 2. No evidence for intracranial metastasis. D/ / Evan Lemos MD / Evan Lemos MD Interpreting Provider: Evan Lemos MD - VTE Documentation of Mechanical Device: Graduated compression elastic hosiery Consult Discharge Plan - Plan Referrals: NONE,PCP [Primary Care Provider] -
[2017-06-17] MEDS: 0.9 % Sodium Chloride 500 ML IVC SCH (18:56)
[2017-06-17] MEDS ORDERED: CARBOPLATIN IV SCH (19:00)
[2017-06-17] MEDS: 0.9 % Sodium Chloride 1,000 ML IVC SCH ×2 (20:31→20:32)
[2017-06-17] MEDS: cefTRIAXone 1,000 MG in Water for inj. (sterile) 10 ML IVP SCH (21:06)
[2017-06-17] MEDS: hydrOXYzine pamoate 25 MG CAPSULE PO SCH (21:06)
[2017-06-18] MEDS ORDERED: *HR* LORazepam 2 MG/ML VIAL IV PRN
[2017-06-18] MEDS ORDERED: Dexamethasone 10 MG/ML VIAL IV PRN
[2017-06-18] MEDS ORDERED: Famotidine 20 MG/2 ML VIAL IV PRN
[2017-06-18] MEDS ORDERED: Prochlorperazine 10 MG/2 ML VIAL IV PRN
[2017-06-18] MEDS: 0.9 % Sodium Chloride 500 ML IVC SCH ×2 (05:39→18:50)
[2017-06-18] MEDS: 0.9 % Sodium Chloride 1,000 ML IVC SCH (05:44)
[2017-06-18 07:03] LABS: Basophils % 0.3 %; Hematocrit 34.9 % (35.3-44.9); Hemoglobin 11.1 g/dL (11.5-15.4); Immature Granulocytes % 1.5 % (0-4); Lymphocytes % 13.9 %; Mean Corpuscular HGB Conc 31.8 g/dL (31.6-35.5); Mean Corpuscular Hemoglobin 27.5 pg (28.0-33.3); Mean Corpuscular Volume 86.4 fL (83.0-100.0); Mean Platelet Volume 8.9 fL (9.4-12.4); Monocytes % 4.1 %; Platelet Count 358 K/mcL (140-400); Red Blood Count 4.04 M/mcL (3.82-4.97); Red Cell Distribution Width 12.8 % (11.5-14.5); Segmented Neutrophils % 80.2 %
[2017-06-18 07:04] LABS: Lymphocytes # 1.1 K/mcL (0.6-4.6); Monocytes # 0.3 K/mcL (0.0-1.3); Neutrophils # 6.3 K/mcL (1.6-8.9)
[2017-06-18 07:15] LABS: BUN/Creatinine Ratio 21 (6-26); Blood Urea Nitrogen 13 mg/dL (7-20); Calcium 8.9 mg/dL (8.6-10.8); Carbon Dioxide 25 mEq/L (19-29); Chloride 104 mEq/L (98-109); Glucose 126 mg/dL (70-99); Osmolality,Calculated 284 (280-300); Sodium 136 mEq/L (136-145); eGFR For African Americans > 60 (> 60); eGFR For Non-African Americans > 60 (> 60)
[2017-06-18 07:43] LABS: Potassium 4.8 mEq/L (3.5-4.5)
[2017-06-18] MEDS: Azithromycin 250 MG TABLET PO SCH (09:45)
[2017-06-18] MEDS: predniSONE 20 MG TABLET PO SCH (09:46)
--- NOTE | 2017-06-18 15:58 | Internal Med Progress Note ---
Date of Encounter: 06/18/17 Time of Encounter: 12:40 - Assessment and plan (1) Small cell lung cancer Current Visit: Yes Status: Acute Assessment and plan: Metastatic small cell carcinoma. Oncology following. Patient has been started on chemotherapy with etoposide and cisplatin. We will consult interventional radiology for placement of port catheter. Patient is to continue chemotherapy inpatient again today due to bulkiness of her disease and metastatic lesions. Expressed understanding. Moderate risk for complications. Qualifiers: Laterality: right Qualified Code(s): C34.91 - Malignant neoplasm of unspecified part of right bronchus or lung (2) Pneumonia Current Visit: Yes Status: Acute Assessment and plan: Postobstructive pneumonia. On azithromycin and ceftriaxone. Today is day 9 of antibiotic therapy. We will complete 10 days of antibiotic course. Qualifiers: Pneumonia type: due to unspecified organism Laterality: right Lung location: lower lobe of lung Qualified Code(s): J18.1 - Lobar pneumonia, unspecified organism (3) COPD (chronic obstructive pulmonary disease) Current Visit: Yes Status: Acute Assessment and plan: Improving. Continue prednisone taper and inhaled DuoNebs as needed Qualifiers: COPD type: emphysema Emphysema type: centrilobular Qualified Code(s): J43.2 - Centrilobular emphysema (4) Tobacco abuse Current Visit: Yes Status: Acute (5) Postobstructive pneumonia Current Visit: Yes Status: Acute (6) LAD (lymphadenopathy), mediastinal Current Visit: Yes Status: Acute Assessment and plan: Due to metastatic small cell lung cancer - Subjective Interval history: Patient is sitting up in bed. Denies any new complaints at this time. Feeling better today. Was started on etoposide and carboplatin yesterday. No complications. Continues to have cough but shortness of breath is resolved. - Constitutional Vitals: Temp Pulse Resp BP Pulse Ox 97.5 F L 68 18 149/73 92 06/18/17 07:56 06/18/17 07:56 06/18/17 07:56 06/18/17 07:56 06/18/17 07:56 General appearance: Present: cooperative, A&O X 3, pleasant, no acute distress, answers questions appropriately - Neck Neck exam general surgery: Present: supple, trachea midline. Absent: lymphadenopathy - Cardiovascular Cardiovascular exam: Present: RRR, +S1, +S2. Absent: diastolic murmur, gallop, rubs, systolic murmur - GI/Abdominal GI/Abdominal exam: Present: normal bowel sounds, soft, no peritoneal signs. Absent: distended, tenderness - Extremities Exam Extremities exam: Present: warm, radial pulses palpable and symmetrical. Absent : calf tenderness, cyanotic, pedal edema - Neurological Exam Neurological exam: Present: alert, oriented X3, no focal deficits, strengths equal and symetr throughout. Absent: facial droop, speech deficit - Skin Skin exam: Present: dry, intact Internal Medicine: Result - Labs CBC & Chem 7: 06/18/17 06:09 06/18/17 06:09 Labs: Short CBC 06/18/17 Range/Units 06:09 WBC 7.8 (4.3-11.1) K/mcL Hgb 11.1 L (11.5-15.4) g/dL Hct 34.9 L (35.3-44.9) % Plt Count 358 (140-400) K/mcL Neutrophils # 6.3 (1.6-8.9) K/mcL BMP 06/18/17 06:09 Sodium 136 Potassium 4.8 H D Chloride 104 Carbon Dioxide 25 BUN 13 Creatinine 0.61 Glucose 126 H Calcium 8.9 - ABG Interpretation ABG results: PT/INR, D-dimer PT 12.5 Seconds (9.4-12.1) H 06/10/17 00:43 - VTE Documentation of Mechanical Device: Intermittent pneumatic compression device Consult Discharge Plan - Plan Referrals: NONE,PCP [Primary Care Provider] -
[2017-06-18] MEDS ORDERED: Dexamethasone 10 MG/ML VIAL IV SCH (17:30)
[2017-06-18] MEDS: cefTRIAXone 1,000 MG in Water for inj. (sterile) 10 ML IVP SCH (17:55)
[2017-06-18] MEDS ORDERED: SODIUM CHLORIDE 0.9% IV SCH (18:00)
[2017-06-18] MEDS ORDERED: ETOPOSIDE IV SCH (18:00)
[2017-06-18] MEDS: hydrOXYzine pamoate 25 MG CAPSULE PO SCH (20:45)
[2017-06-18] MEDS: amLODIPine 5 MG TABLET PO SCH (22:28)
[2017-06-19] MEDS ORDERED: Prochlorperazine 10 MG/2 ML VIAL IV PRN
[2017-06-19] MEDS ORDERED: Dexamethasone 10 MG/ML VIAL IV PRN
[2017-06-19] MEDS ORDERED: *HR* LORazepam 2 MG/ML VIAL IV PRN
[2017-06-19] MEDS ORDERED: Famotidine 20 MG/2 ML VIAL IV PRN
[2017-06-19] MEDS ORDERED: 0.9 % Sodium Chloride 500 ML IVC SCH
[2017-06-19 06:55] LABS: INR 1.1; Prothrombin Time 11.3 Seconds (9.4-12.1)
[2017-06-19 07:00] LABS: BUN/Creatinine Ratio 28 (6-26); Blood Urea Nitrogen 17 mg/dL (7-20); Calcium 8.8 mg/dL (8.6-10.8); Carbon Dioxide 25 mEq/L (19-29); Chloride 103 mEq/L (98-109); Glucose 125 mg/dL (70-99); Osmolality,Calculated 285 (280-300); Potassium 4.3 mEq/L (3.5-4.5); Sodium 136 mEq/L (136-145); eGFR For African Americans > 60 (> 60); eGFR For Non-African Americans > 60 (> 60)
[2017-06-19 07:03] LABS: Basophils % 0.1 %; Hematocrit 35.7 % (35.3-44.9); Hemoglobin 11.5 g/dL (11.5-15.4); Immature Granulocytes % 0.8 % (0-4); Lymphocytes # 0.9 K/mcL (0.6-4.6); Lymphocytes % 10.4 %; Mean Corpuscular HGB Conc 32.2 g/dL (31.6-35.5); Mean Corpuscular Hemoglobin 27.8 pg (28.0-33.3); Mean Corpuscular Volume 86.2 fL (83.0-100.0); Mean Platelet Volume 9.5 fL (9.4-12.4); Monocytes # 0.5 K/mcL (0.0-1.3); Monocytes % 5.3 %; Neutrophils # 7.6 K/mcL (1.6-8.9); Platelet Count 292 K/mcL (140-400); Red Blood Count 4.14 M/mcL (3.82-4.97); Red Cell Distribution Width 12.7 % (11.5-14.5); Segmented Neutrophils % 83.4 %
[2017-06-19] MEDS: 0.9 % Sodium Chloride 500 ML IVC SCH (07:49)
--- NOTE | 2017-06-19 07:50 | Oncology Inp Progress Note ---
Date of Encounter: 06/18/17 Time of Encounter: 17:00 (1) Right lower lobe lung mass Current Visit: Yes Status: Acute Assessment and plan: Small cell lung cancer-extensive mediastinal and right hilar adenopathy and rt mid lobe post obstructive pneumonitis, thoracentesis cytology neg, broch bx small cell lung cancer pleural mets, no distant disesae in CT imaging, on carboplatin/VP16 day 2 completed today (06/18/17) Chemo on 06/19/17 nad possible d/c home to receive neulasta next wk with labs in clinic. Lab work today reviewed nl lytes/BUN, cr Post obstructive pneumonitis-on antibiotics-SOB improved, hx COPD. Ct abd, Ct haed findings d/w her. She is unable to take MRI Further treatment plan as outpatient. Plan d/w patient and family. Oncology: Subj Interval history: Pt seen on 06/18/17--day 2 of carbo/etoposide. No complaints - Constitutional Vitals: Vital Signs Temp Pulse Resp BP Pulse Ox 06/19/17 04:31 16 90 06/19/17 03:32 96.6 F L 74 14 158/72 90 06/18/17 23:23 163/72 06/18/17 20:00 98.1 F 85 12 189/73 92 06/18/17 12:30 97.9 F 80 18 167/70 92 06/18/17 07:56 97.5 F L 68 18 149/73 92 Intake and Output 06/18/17 06/18/17 06/19/17 15:59 23:59 07:59 Intake Total 240 / 240 747 / 747 500 / 500 Output Total 250 / 250 Balance 240 / 240 747 / 747 250 / 250 Intake: IV Fluids 507 / 507 500 / 500 Etoposide 140 mg In 0.9 % 507 / 507 Sodium Chloride 500 ML @ 507 mls/hr IV ONCE ANSUHA Rx#: [id number] 0.9 % Sodium Chloride 500 ML @ 500 / 500 25 mls/hr IVC .Q20H ANUSHA Rx#: [id number] Oral 240 / 240 240 / 240 0 / 0 Output: Urine 250 / 250 Other: Meal Breakfast Dinner Percent of Meal Consumed 100% 100% # Voids 2 1 Weight 73.3 kg Blood Glucose* 123 Patient Weight 06/19/17 23:59 Weight 73.3 kg General appearance: no acute distress - Head Head exam: Present: atraumatic, normal inspection - Eye Eye exam: Present: sclera anicteric - ENT ENT exam: Present: mucous membranes moist - Neck Neck exam: Present: full ROM - Respiratory Respiratory exam: Present: CTAB - Cardiovascular Cardiovascular exam: Present: +S1, +S2 - GI/Abdominal GI/Abdominal exam: Present: normal bowel sounds, soft - Extremities Exam Extremities exam: Present: normal inspection - Neurological Exam Neurological exam: Present: alert, oriented X3 - Psychiatric Psychiatric exam: Present: normal affect Oncology: Obj Data - Labs CBC & Chem 7: 06/19/17 06:16 06/19/17 06:16 Labs: Laboratory Results - last 24 hr 06/19/17 06/19/17 06/19/17 05:41 06:16 06:16 WBC 9.1 RBC 4.14 Hgb 11.5 Hct 35.7 MCV 86.2 MCH 27.8 L MCHC 32.2 RDW 12.7 Plt Count 292 MPV 9.5 Immature Gran % 0.8 Seg Neutrophils % 83.4 Lymphocytes % 10.4 Monocytes % 5.3 Eosinophils % 0.0 Basophils % 0.1 Neutrophils # 7.6 Lymphocytes # 0.9 Monocytes # 0.5 Eosinophils # 0.0 Basophils # 0.0 PT INR Sodium 136 Potassium 4.3 Chloride 103 Carbon Dioxide 25 BUN 17 Creatinine 0.61 Est GFR ( Amer) > 60 Est GFR (Non-Af Amer) > 60 BUN/Creatinine Ratio 28 H Glucose 125 H POC Glucose 123 H Calculated Osmolality 285 Calcium 8.8 06/19/17 06:16 WBC RBC Hgb Hct MCV MCH MCHC RDW Plt Count MPV Immature Gran % Seg Neutrophils % Lymphocytes % Monocytes % Eosinophils % Basophils % Neutrophils # Lymphocytes # Monocytes # Eosinophils # Basophils # PT 11.3 INR 1.1 Sodium Potassium Chloride Carbon Dioxide BUN Creatinine Est GFR ( Amer) Est GFR (Non-Af Amer) BUN/Creatinine Ratio Glucose POC Glucose Calculated Osmolality Calcium - ABG Interpretation ABG results: PT/INR, D-dimer PT 11.3 Seconds (9.4-12.1) 06/19/17 06:16 Consult Discharge Plan - Plan Referrals: NONE,PCP [Primary Care Provider] -
[2017-06-19] MEDS ORDERED: Heparin 1,000 UNITS/500 mL NS 500 ML ONE (08:08)
[2017-06-19] MEDS ORDERED: *HR* FentaNYL (PF) 100 MCG/2 ML VIAL IVP ONE (08:37)
[2017-06-19] MEDS ORDERED: *HR* Midazolam HCl 2 MG/2 ML VIAL IVP ONE (08:37)
[2017-06-19] MEDS ORDERED: Clindamycin 600 MG/50 ML 600 MG/50 ML IV.SOLN IVPB STA (08:37)
--- NOTE | 2017-06-19 08:38 | Pre-Sedation Evaluation ---
Pre-sedation evaluation - Pre-sedation checklist Date of procedure: 06/12/17 Procedure: Bronchoscopy Recent Vitals: Last Vital Signs Temp 97.8 F 06/19/17 08:05 Pulse 78 06/19/17 08:05 Resp 18 06/19/17 08:05 BP 147/67 06/19/17 08:05 Pulse Ox 91 06/19/17 08:05 H&P (including ROS) documented in medical record: Yes Previous reaction to sedatives/anesthetics: No Dietary Status: NPO after Midnight Airway Assessment: Patient can open mouth completely, TMJ function normal, Micrognathia (under-bite, receding chin) absent, Neck with adequate range of motion Possible difficult airway: No ASA Classification *see protocol: CLASS II-Mild systemic disease Plan of Care: Pt appropriate candidate for procedure/moderate/conscious sedation , Risks/benefits of procedure/sedation discussed w/ patient/family, If not NPO; Risk of intake outweiged by necessity to perform procedure
[2017-06-19] MEDS ORDERED: 0.9 % Sodium Chloride 500 ML ONE (08:50)
--- NOTE | 2017-06-19 09:27 | IR Procedure Note ---
Date of procedure: 06/19/17 Consent Obtained: Written consent Timeout: Correct patient and procedure verified, Correct site verified, Time out performed, Skin prep completed Indications: lung cancer Procedure Performed: port Site/Technique: rt IJ to SVC Results/Findings: adequate placement Estimated blood loss (cc): 4 Complications: None; Tolerated procedure well Post Procedure Treatment Plan: OK to use
[2017-06-19] MEDS: predniSONE 20 MG TABLET PO SCH (10:00)
[2017-06-19] MEDS: Azithromycin 250 MG TABLET PO SCH (10:01)
[2017-06-19] MEDS: amLODIPine 5 MG TABLET PO SCH (10:01)
--- NOTE | 2017-06-19 11:31 | Discharge Summary ---
Date of Encounter: 06/19/17 Time of Encounter: 11:27 - Discharge Diagnosis (1) Pneumonia Priority: Primary Status: Acute Qualifiers: Pneumonia type: due to unspecified organism Laterality: right Lung location: lower lobe of lung Qualified Code(s): J18.1 - Lobar pneumonia, unspecified organism (2) Small cell lung cancer Priority: Secondary Status: Acute Qualifiers: Laterality: right Qualified Code(s): C34.91 - Malignant neoplasm of unspecified part of right bronchus or lung (3) COPD (chronic obstructive pulmonary disease) Priority: Secondary Status: Acute Qualifiers: COPD type: emphysema Emphysema type: centrilobular Qualified Code(s): J43.2 - Centrilobular emphysema (4) Tobacco abuse Priority: Secondary Status: Acute (5) Postobstructive pneumonia Priority: Secondary Status: Acute (6) LAD (lymphadenopathy), mediastinal Priority: Secondary Status: Acute - Discharge Medications Prescriptions: Albuterol Sulfate [Albuterol Inhaler] 2 puff IH Q6HR PRN #1 hfa.aer.ad PRN Reason: Shortness Of Breath Allopurinol [Zyloprim 300 MG] 300 mg PO DAILY #30 tablet predniSONE [PredniSONE] 10 mg PO DAILY 6 Days tablet Tiotropium [Spiriva] 18 mcg IH DAILY #30 capsule Home Medications: Aspirin [Lo-Dose Aspirin EC] 81 mg PO DAILY 06/09/17 [History] Albuterol Sulfate [Albuterol Inhaler] 2 puff IH Q6HR PRN #1 hfa.aer.ad 06/19/17 [Rx] Allopurinol [Zyloprim 300 MG] 300 mg PO DAILY #30 tablet 06/19/17 [Rx] Tiotropium [Spiriva] 18 mcg IH DAILY #30 capsule 06/19/17 [Rx] predniSONE [PredniSONE] 10 mg PO DAILY 6 Days tablet 06/19/17 [Rx] Allergies/Adverse Reactions: 3 Allergy/AdvReac Type Severity Reaction Status Date / Time Penicillins AdvReac Rash Verified 06/09/17 12:06 Sulfa (Sulfonamide AdvReac Rash Verified 06/09/17 12:06 Antibiotics) Procedures/tests Complete & Pending: Procedures Performed prior 72 hours Category Date Time Status CT head/brain wo/w con [CT] Routine Cat Scan 06/17/17 08:30 Completed abdominal/pelvis CT with contrast [CT abd pelvis w iv Cat Scan 06/16/17 13:30 Completed and oral] [CT] Stat IR cvc insert with port [IR] Routine IR 06/19/17 Completed IR us guide venous access [IR] Routine IR 06/19/17 Completed Date of admission: 06/09/17 17:56 Primary care physician: PCP JANI Consults: 06/10/17 14:00 Consult to Pulmonology [CONS] Routine Consulting Provider: [facility] Trisha Reason for Consult: new lung mass, PNA Call Completed: Yes 06/11/17 18:10 Consult to Oncology [CONS] Routine Consulting Provider: [facility]cology [facility] Trisha Reason for Consult: Mediastinal and hilar adenopathy suspicious for cancer Call Completed: No 06/19/17 07:00 Consult to Interventional Radiology [CONS] Routine Consulting Provider: Radiology Interventional Cols Reason for Consult: Placement of port cath for chemotherapy Time Notified: 15:13 Call Completed: No Discharging clinician: Taryn Agarwal Anticipated date of discharge: 06/19/17 - Patient Status Disposition: Home, Self-Care Condition: Good Functional capacity at discharge: independent ambulation Overall status at discharge: patient is progressing back to baseline - Discharge Instructions Instructions: Chronic Obstructive Pulmonary Disease (DC), Pneumonia (DC) Follow Up With: Fanny Lakhani MD [Partnered Physician] - 06/29/17 2:40 pm (within 1 week) NONE,PCP [Primary Care Provider] - - Diet and Activity Activity: increase activity as tolerated Diet: low fat, low cholesterol, low salt diet Hospital course: Ms. Tena is a 81 year old female patient without any significant diagnosed past medical history who had not seen a doctor previously presented to the ER with complaints of shortness of breath that had been worsening over the prior 2 weeks. She had also been having yellowish-green sputum. Workup in the ER included a CT scan of the chest which showed a large lung mass with concern for postobstructive pneumonia. Patient was therefore admitted and pulmonology was consulted. She was treated with IV antibiotics and after evaluation by pulmonology, she underwent bronchoscopy with biopsy and BAL. She also had a right-sided pleural effusion which was aspirated and about 800 mL of straw- colored fluid were withdrawn. 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 As such, oncology was consulted. Per their recommendations, patient was started on chemotherapy due to extensive tumor burden. MRI was recommended but patient did not wish to undergo this procedure. CT scan of the abdomen and pelvis was done which did not show any features of metastatic disease. Patient continued to be treated for postobstructive pneumonia and has completed antibiotic therapy today. She also underwent port catheter placement today. She is clinically stable for discharge at this time and will follow up with oncology for further management. She is not requiring any O2 supplementation at this time. - Time Spent with Patient Total time spent providing and/or coordinating discharge services: Greater than 30 minutes (35 min) - Constitutional Vitals: Temp Pulse Resp BP Pulse Ox 97.8 F 77 14 130/57 99 06/19/17 08:05 06/19/17 09:17 06/19/17 09:17 06/19/17 09:17 06/19/17 09:17 General appearance: Present: cooperative, A&O X 3, pleasant, no acute distress, answers questions appropriately - Respiratory Respiratory exam: Present: prolonged expiratory phase. Absent: accessory muscle use, rales, rhonchi, wheezes - Cardiovascular Cardiovascular exam: Present: RRR, +S1, +S2. Absent: diastolic murmur, gallop, rubs, systolic murmur - GI/Abdominal GI/Abdominal exam: Present: normal bowel sounds, soft, no peritoneal signs. Absent: distended, tenderness - VTE Documentation of Mechanical Device: Intermittent pneumatic compression device
[2017-06-19 15:26] VITALS: BP 131/63
[2017-06-19] MEDS ORDERED: Dexamethasone 10 MG/ML VIAL IV SCH (17:30)
[2017-06-19] MEDS ORDERED: SODIUM CHLORIDE 0.9% IV SCH (18:00)
[2017-06-19] MEDS ORDERED: ETOPOSIDE IV SCH (18:00)
== END 2017-06-19 20:20 | disposition home or self-care (01) | DRG 166 ==
LOC: EMEROO 12:01 → 3ANU 12:01 → 3BNU 17:49 → SUATTDRO 17:56 → 3BNU 18:06 → 3ANU 06-17 15:16
PROVIDERS: ADMIT Internal Medicine; ATTEND Internal Medicine

== ENCOUNTER 2017-08-23 12:22 | Observation (INO) ==
[2017-08-23] MEDS ORDERED: 0.9 % Sodium Chloride 500 ML IVC ONE (12:34)
--- NOTE | 2017-08-23 12:40 | Emergency Department Note ---
Disposition Clinical Impression: Dyspnea Qualifiers: Dyspnea type: shortness of breath Qualified Code(s): R06.02 - Shortness of breath Leukocytosis Qualifiers: Leukocytosis type: unspecified Qualified Code(s): D72.829 - Elevated white blood cell count, unspecified Disposition: Admitted As Inpatient Condition: Good Referrals: NONE,PCP [Primary Care Provider] - Forms: ED Satisfaction Letter SOB HPI - General Chief Complaint: ED Shortness of Breath/Dyspnea Stated Complaint: chest pain/[facility] Time Seen by Provider: 08/23/17 12:25 Source: patient, EMS Mode of arrival: EMS Limitations: no limitations Nursing Notes Reviewed: Yes Vital Signs Reviewed: Yes - History of Present Illness 81-year-old female history of recently diagnosed lung cancer in June 2017 currently on chemotherapy who presents to the ER via EMS due to shortness of breath. Patient states that she had not seen a physician in 50 years until evaluation here June when she was admitted with pneumonia. Reports that she was found to have lung cancer at that time. She was started on chemotherapy with most recent treatment one week ago. She states she was in her usual state of health until today whenever she developed abrupt onset of shortness of breath 1 hour prior to arrival. States she has had a nonproductive cough since yesterday. No fevers, chest pain, nausea, vomiting, diarrhea. No runny nose sore throat or congestion. Patient brought in by EMS for evaluation. Denies prior history of CAD, OK, DVT or pulmonary embolism. Pt Subjective Complaint: shortness of breath Onset (ago): Just [employer] Severity: severe Consistency/Duration: constant Improves with: nothing Worsens with: nothing Known history of: other (Lung cancer) Associated symptoms: Reports: cough. Denies: chest pain, fever, sputum production Treatment prior to arrival: none Cough present: Yes Cough Description: Involuntary Cough Frequency: Intermittent Sputum production: No Sputum Amount: None - Related Data Home oxygen amount: none Home Medications Medication Instructions Recorded Confirmed Aspirin [Lo-Dose Aspirin EC] 81 mg PO DAILY 06/09/17 08/19/17 Naproxen Sodium [Aleve] 1 tab PO DAILY 08/19/17 08/19/17 Tiotropium [Spiriva] 18 mcg IH DAILY PRN 08/19/17 08/19/17 Previous Rx's Medication Instructions Recorded Albuterol Sulfate [Albuterol 2 puff IH Q6HR PRN #1 hfa.aer.ad 06/19/17 Inhaler] Lidocaine/Prilocaine CREAM [Emla] 1 gm TP ONCE #1 tube 06/29/17 Ondansetron [Zofran] 8 mg PO Q8HR #90 tablet 06/29/17 Prochlorperazine Maleate 10 mg PO Q8HR #90 tablet 06/29/17 [Compazine] Allergies Allergy/AdvReac Type Severity Reaction Status Date / Time Penicillins AdvReac Rash Verified 07/31/17 11:47 Sulfa (Sulfonamide AdvReac Rash Verified 07/31/17 11:47 Antibiotics) All systems ED: reviewed and negative except as stated. Constitutional: Denies: fever ENT ED: Denies: congestion Cardiovascular: Denies: chest pain Respiratory: Reports: cough, dyspnea. Denies: sputum production Gastrointestinal: Denies: abdominal pain, nausea, vomiting, diarrhea Past Medical History - Past Medical History Attestation: Yes The following information was validated with the patient. Source: patient Medical history: Reports: other Surgical history: Reports: no surgical history Psychiatric history: Reports: no psych history - Social History Smoking Status: Former smoker Smokeless Tobacco Status: No Alcohol use: Reports: none Drug use: Reports: none Physical Exam - General Limitations: no limitations General appearance: alert, in no apparent distress - Head Head exam: atraumatic, normocephalic - Eye Eye exam: Present: normal appearance - ENT ENT exam: normal exam - Neck Neck exam: Present: normal inspection - Chest Chest inspection: Present: normal inspection, symmetric chest wall rise - Respiratory Respiratory exam: Present: normal lung sounds bilaterally - Cardiovascular Cardiovascular exam: Present: normal rhythm, tachycardia, normal heart sounds - Abdominal Exam Abdominal exam: Present: soft, Non-Tender. Absent: tenderness - Extremities Exam Extremities exam: Present: normal inspection, full ROM - Expanded Upper Extremity Exam Shoulder exam: Present: normal inspection, full ROM Arm exam: Present: normal inspection, full ROM Elbow exam: Present: normal inspection, full ROM Forearm/Wrist exam: Present: normal inspection, full ROM Hand exam: Present: normal inspection, full ROM - Expanded Lower Extremity Exam Hip/Pelvis exam: Present: normal inspection, full ROM Upper leg exam: Present: normal inspection, full ROM Knee exam: Present: normal inspection, full ROM Lower leg exam: Present: normal inspection, full ROM Ankle exam: Present: normal inspection, full ROM Foot/toe exam: Present: normal inspection, full ROM - Skin Skin exam: Present: warm, dry, intact Course Course Narrative: Patient seen and examined. Hemodynamic stable. She is noted to be tachycardic. 98% on room air. We will pursue an EKG as well as labs including troponin. Given her history of recurrent lung cancer as well as sinus tachycardia we will pursue a CTA of her chest for evaluation of pulmonary embolism as well as potential postobstructive pneumonia or other etiology. - Consultations Consultation #1: I spoke with the on-call oncology provider. Discussed the patient's history and exam imaging and labs as well as interventions to date. Patient noted to have a leukocytosis of 75. He had me review the patient's chart showing that she did receive Neulasta roughly 6 days ago. She had a normal white count 4 days ago. CTA without evidence of pulmonary embolism or pneumonia. From an oncology standpoint he has no further recommendations in terms of treatment or admission. Does not recommend starting antibiotics at this time. Vital Signs Temperature 97.9 F 08/23/17 12:24 Pulse Rate 108 08/23/17 12:24 Respiratory Rate 20 08/23/17 12:24 Blood Pressure 181/81 08/23/17 12:24 O2 Sat by Pulse Oximetry 98 08/23/17 12:24 Temperature 97.9 F 08/23/17 12:24 Pulse Rate 92 08/23/17 14:20 Respiratory Rate 16 08/23/17 14:20 Blood Pressure 150/65 08/23/17 14:20 O2 Sat by Pulse Oximetry 97 08/23/17 14:20 Oxygen Delivery Oxygen Delivery Room Air Shortness of Breath/Dyspnea - [facility] Narrative Medical decision making narrative: 81-year-old female presents to the ER due to shortness of breath. Abrupt onset of shortness of breath just prior to arrival. Has had a nonproductive cough for 2 days. Otherwise no symptoms. She is noted to be slightly tachycardic here. No hypoxia. Patient placed on oxygen supplementation for comfort. EKG did show sinus tachycardia. CTA with no evidence of pulmonary embolism nor pneumonia. She is noted to have a leukocytosis which was discussed with oncology who believes it is secondary to her recent Neulasta. Rest of labs reviewed. She will be admitted to the hospitalist service for dyspnea. - Lab Data Lab results reviewed: Yes I reviewed the patient's lab results. Result diagrams: 08/23/17 12:55 08/23/17 12:55 Lab Results 08/23/17 08/23/17 08/23/17 Range/Units 12:55 12:55 12:55 WBC 75.3 H* D (4.3-11.1) K/mcL RBC 3.70 L (3.82-4.97) M/mcL Hgb 10.8 L (11.5-15.4) g/dL Hct 32.7 L (35.3-44.9) % MCV 88.4 (83.0-100.0) fL MCH 29.2 (28.0-33.3) pg MCHC 33.0 (31.6-35.5) g/dL RDW 17.1 H (11.5-14.5) % Plt Count 226 (140-400) K/mcL MPV 9.4 (9.4-12.4) fL Seg Neutrophils % 88.0 % Lymphocytes % 10.0 % Monocytes % 2.0 % Neutrophils # 66.3 H (1.6-8.9) K/mcL Lymphocytes # 7.5 H (0.6-4.6) K/mcL Monocytes # 1.5 H (0.0-1.3) K/mcL Platelet Estimate Normal (Normal) PT 11.1 (9.4-12.1) Seconds INR 1.0 APTT (26.0-36.0) Seconds Sodium 133 L (136-145) mEq/L Potassium 3.5 (3.5-5.1) mEq/L Chloride 98 (98-107) mEq/L Carbon Dioxide 26 (23-29) mEq/L BUN 21 (8-23) mg/dL Creatinine 0.85 (0.60-1.20) mg/dL Est GFR ( Amer) > 60 (> 60) Est GFR (Non-Af Amer) > 60 (> 60) BUN/Creatinine Ratio 25 (6-26) Glucose 125 H (70-105) mg/dL Calculated Osmolality 280 (280-300) Lactic Acid (0.5-2.2) mmol/L Calcium 9.3 (8.6-10.3) mg/dL Troponin I (< 0.04) ng/mL B-Natriuretic Peptide (Less than 100) pg/mL Urine Color (Yellow) Urine Clarity (Clear) Urine pH (5.0-8.0) pH Units Ur Specific Hawley (1.010-1.025) Urine Protein (Neg-Trace) mg/dL Urine Glucose (UA) (Normal) mg/dL Urine Ketones (Negative) mg/dL Urine Blood (Negative) Urine Nitrite (Negative) Urine Bilirubin (Negative) Urine Urobilinogen (Normal) mg/dL Ur Leukocyte Esterase (Negative) Ur Culture Indicated? (NO) 08/23/17 08/23/17 08/23/17 Range/Units 12:55 12:55 12:55 WBC (4.3-11.1) K/mcL RBC (3.82-4.97) M/mcL Hgb (11.5-15.4) g/dL Hct (35.3-44.9) % MCV (83.0-100.0) fL MCH (28.0-33.3) pg MCHC (31.6-35.5) g/dL RDW (11.5-14.5) % Plt Count (140-400) K/mcL MPV (9.4-12.4) fL Seg Neutrophils % % Lymphocytes % % Monocytes % % Neutrophils # (1.6-8.9) K/mcL Lymphocytes # (0.6-4.6) K/mcL Monocytes # (0.0-1.3) K/mcL Platelet Estimate (Normal) PT (9.4-12.1) Seconds INR APTT (26.0-36.0) Seconds Sodium (136-145) mEq/L Potassium (3.5-5.1) mEq/L Chloride (98-107) mEq/L Carbon Dioxide (23-29) mEq/L BUN (8-23) mg/dL Creatinine (0.60-1.20) mg/dL Est GFR ( Amer) (> 60) Est GFR (Non-Af Amer) (> 60) BUN/Creatinine Ratio (6-26) Glucose (70-105) mg/dL Calculated Osmolality (280-300) Lactic Acid 2.2 (0.5-2.2) mmol/L Calcium (8.6-10.3) mg/dL Troponin I < 0.03 (< 0.04) ng/mL B-Natriuretic Peptide 159 H (Less than 100) pg/mL Urine Color (Yellow) Urine Clarity (Clear) Urine pH (5.0-8.0) pH Units Ur Specific Hawley (1.010-1.025) Urine Protein (Neg-Trace) mg/dL Urine Glucose (UA) (Normal) mg/dL Urine Ketones (Negative) mg/dL Urine Blood (Negative) Urine Nitrite (Negative) Urine Bilirubin (Negative) Urine Urobilinogen (Normal) mg/dL Ur Leukocyte Esterase (Negative) Ur Culture Indicated? (NO) 08/23/17 08/23/17 Range/Units 12:55 13:56 WBC (4.3-11.1) K/mcL RBC (3.82-4.97) M/mcL Hgb (11.5-15.4) g/dL Hct (35.3-44.9) % MCV (83.0-100.0) fL MCH (28.0-33.3) pg MCHC (31.6-35.5) g/dL RDW (11.5-14.5) % Plt Count (140-400) K/mcL MPV (9.4-12.4) fL Seg Neutrophils % % Lymphocytes % % Monocytes % % Neutrophils # (1.6-8.9) K/mcL Lymphocytes # (0.6-4.6) K/mcL Monocytes # (0.0-1.3) K/mcL Platelet Estimate (Normal) PT (9.4-12.1) Seconds INR APTT 29.0 (26.0-36.0) Seconds Sodium (136-145) mEq/L Potassium (3.5-5.1) mEq/L Chloride (98-107) mEq/L Carbon Dioxide (23-29) mEq/L BUN (8-23) mg/dL Creatinine (0.60-1.20) mg/dL Est GFR ( Amer) (> 60) Est GFR (Non-Af Amer) (> 60) BUN/Creatinine Ratio (6-26) Glucose (70-105) mg/dL Calculated Osmolality (280-300) Lactic Acid (0.5-2.2) mmol/L Calcium (8.6-10.3) mg/dL Troponin I (< 0.04) ng/mL B-Natriuretic Peptide (Less than 100) pg/mL Urine Color Yellow (Yellow) Urine Clarity Clear (Clear) Urine pH 6.5 (5.0-8.0) pH Units Ur Specific Hawley 1.016 (1.010-1.025) Urine Protein Negative (Neg-Trace) mg/dL Urine Glucose (UA) Normal (Normal) mg/dL Urine Ketones Negative (Negative) mg/dL Urine Blood Negative (Negative) Urine Nitrite Negative (Negative) Urine Bilirubin Negative (Negative) Urine Urobilinogen Normal (Normal) mg/dL Ur Leukocyte Esterase Negative (Negative) Ur Culture Indicated? NO (NO) - Radiology Data Radiology results reviewed: Yes I reviewed the patient's radiology results. Chest CTA 08/23/17 12:34 IMPRESSION: 1. No evidence for acute pulmonary embolism. 2. No evidence for pneumonia. Subsegmental atelectasis middle lobe at the lung base. 3. Suggestion of a 4 mm posterior segment right upper lobe nodule. If patient has high risk factors for lung cancer 12 month follow-up would be advised otherwise no follow-up. D/ / Lucien Scott MD / Lucien Scott MD Interpreting Provider: Lucien Scott MD - EKG Data EKG attestation: Yes I reviewed and interpreted this EKG. EKG results narrative: EKG demonstrates sinus tachycardia with rate 103. Normal axis. Prolonged QRS duration 132. Other intervals are normal. She has a right bundle branch block. Nonspecific ST-T wave changes in the inferior and lateral leads. No gross ST elevations. No significant changes from previous EKG dated 06/09/17. Attestation Statement - Attestation Attestation: I examined this patient and my medical decision-making was reviewed with the Resident Physician, Dr. Ardon. I agree with the documented findings, disposition and treatment plan as described except to the extent set forth below. Patient is an 81-year-old white female who presents to emergency department by EMS today for sudden onset shortness of breath and chest discomfort. Patient points to her sternal notch and states that she had a tightening in this area and again feeling very short of breath and uncomfortable at home. Patient was admitted for the first time in over 50 years to the hospital for pneumonia in June and it during that hospitalization it was found that she had lung cancer. Patient was started on chemotherapy her last treatment was a week ago and patient reports an episode of terrible shortness of breath at home with sudden in onset today. On arrival patient was feeling better although she states she has been very anxious at home. Patient on arrival denies any current chest discomfort, no lightheadedness or syncope, no URI symptoms or cough, no hemoptysis, no lower extremity pain, no abdominal pain or flank pain. I agree with patient's physical exam findings as documented. Patient was tachycardic on arrival but not hypoxic. Patient's EKG shows a right bundle-branch block with no acute ischemia compared to previous. Patient had labs and my first CT of the chest to rule out possible PE or postobstructive pneumonia. Patient remained hemodynamically stable throughout her ED course. Patient is improved clinically and not complaining of any chest pain or shortness of breath at this time. Patient's labs show a significant leukocytosis compared to 4 days ago with a white count equal 75. Patient's troponin is within normal limits. Remainder of labs are unremarkable. CTA of the chest is negative for PE or pneumonia. Case was discussed with patient's oncologist in regards to the elevation in her white count and possible coverage with antibiotics. They state this could be related to the Neulasta she received 6 days ago and there could have been a delayed response since her white count was normal 4 days ago. They do not recommend any additional antibiotic coverage at this time despite her immunocompromised state. Patient will be admitted for chest pain and shortness of breath to the hospitalist service.
[2017-08-23 13:03] LABS: Hemoglobin 10.8 g/dL (11.5-15.4)
[2017-08-23 13:04] LABS: Hematocrit 32.7 % (35.3-44.9); Mean Corpuscular Hemoglobin 29.2 pg (28.0-33.3); Mean Corpuscular Volume 88.4 fL (83.0-100.0); Mean Platelet Volume 9.4 fL (9.4-12.4); Platelet Count 226 K/mcL (140-400); Red Cell Distribution Width 17.1 % (11.5-14.5)
[2017-08-23 13:07] LABS: Prothrombin Time 11.1 Seconds (9.4-12.1)
[2017-08-23 13:20] LABS: BUN/Creatinine Ratio 25 (6-26); Blood Urea Nitrogen 21 mg/dL (8-23); Calcium 9.3 mg/dL (8.6-10.3); Carbon Dioxide 26 mEq/L (23-29); Chloride 98 mEq/L (98-107); Glucose 125 mg/dL (70-105); Osmolality,Calculated 280 (280-300); Potassium 3.5 mEq/L (3.5-5.1); Sodium 133 mEq/L (136-145); eGFR For African Americans > 60 (> 60); eGFR For Non-African Americans > 60 (> 60)
[2017-08-23 13:30] LABS: Lymphocytes # 7.5 K/mcL (0.6-4.6); Monocytes # 1.5 K/mcL (0.0-1.3); Neutrophils # 66.3 K/mcL (1.6-8.9); Platelet Estimate Normal (Normal)
[2017-08-23 14:02] LABS: Bilirubin,Urine Negative (Negative); Blood,Urine Negative (Negative); Clarity,Urine Clear (Clear); Color,Urine Yellow (Yellow); Glucose,Urine (UA) Normal (Normal); Ketones,Urine Negative (Negative); Leukocyte Esterase,Urine Negative (Negative); Nitrite,Urine Negative (Negative); PH,Urine 6.5 pH Units (5.0-8.0); Protein,Urine Negative (Neg-Trace); Specific Gravity,Urine 1.016 (1.010-1.025); Urobilinogen,Urine Normal (Normal)
[2017-08-23] MEDS ORDERED: Naloxone 0.4 MG/ML INJ IVP PRN (16:12)
[2017-08-23] MEDS ORDERED: Acetaminophen 325 MG TABLET PO PRN (16:12)
[2017-08-23] MEDS ORDERED: Ondansetron 4 MG/2 ML VIAL IVP PRN (16:12)
--- NOTE | 2017-08-23 16:14 | Event Note ---
Date of Encounter: 08/23/17 Time of Encounter: 16:14 Patient seen and examined with DAY CARE DIRECTOR. History of lung cancer currently on chemo presents with an episode of SOB lasting for an hour. Appears to be anxiety? WBC 60229 but she just received neulasta yesterday. No fever and no obvious source of infection. Hold off antibiotics. Hydrate and ativan PO for anxiety. Full code. Observation admission
[2017-08-23] MEDS ORDERED: *HR* LORazepam 0.5 MG TABLET PO PRN (16:20)
--- NOTE | 2017-08-23 16:29 | Internal Med History&Physical ---
Date of Encounter: 08/23/17 Time of Encounter: 16:27 Assessment and Plan (1) Anxiety Current visit: Yes Status: Acute 1 patient was experiencing sudden onset of shortness of breath trembling feeling as if she was going to "jump out of her skin". CTA was negative for any pulmonary embolism Patient was receiving prednisone and was recently stopped. She did receive a dose of prednisone on Thursday suspect this may be contributing to her anxiety. We will give Ativan as needed for anxiety Give IV fluids overnight Continuous cardiac monitoring (2) Leukocytosis Current visit: Yes Status: Acute Patient has elevated white count at 75,000, no signs of infection at this time she did receive the Lunesta injection yesterday suspect this is cause of elevation. We will continue to monitor Qualifiers: Leukocytosis type: unspecified Qualified Code(s): D72.829 - Elevated white blood cell count, unspecified (3) Small cell lung cancer Current visit: No Status: Chronic Patient diagnosed with small cell lung cancer in June is presently being treated with chemotherapy per [facility] will continue as outpatient and consult as needed Qualifiers: Laterality: right Qualified Code(s): C34.91 - Malignant neoplasm of unspecified part of right bronchus or lung (4) DVT prophylaxis Current visit: No Status: Acute [facility] - H&P: HPI Chief complaint: SOB Admitted From: Emergency Dept Plans for Post Hospital Care: Home History of present illness: Ms. 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 Currently undergoing chemotherapy last chemotherapy on Thursday, received Neulasta yesterday. She was in her usual state of health until this a.m. when she developed abrupt onset of shortness of breath. She said she felt very anxious as if "she was going to jump out of her skin"she denies any fevers chills chest pain nausea vomiting or diarrhea. Denies any sick contacts, no past history of CAD MO DVT or pulmonary embolism. She does have a nonproductive cough which developed yesterday. She presented to the ER with the above complaints according to ER records she was tachycardic on presentation lab work did reveal some leukocytosis with white count 75,000 breath of her lab work was unremarkable. Chest x-ray with no acute process urine was clean. CTA negative for pulmonary embolism. ER physician did speak with on-call oncologist-who advised most likely related to Neulasta and not to start antibiotics at this time. She has been admitted for further work up evaluation. Presently patient does not appear to be in any respiratory distress she does feel anxious she is hemodynamically stable this time Past Med Surg Social Fam HX - Past Medical History Medical history: other Psychiatric history: no psych history - Past Surgical History Surgical History: no surgical history - Social History Smoking Status: Former smoker Smokeless Tobacco Status: No Alcohol use: none Drug use: none - Family History Mother Family Member Ethnicity: Non- Living Status: Hx Family Cardiac Disorders: Yes Father Living Status: Hx Family Cardiac Disorders: Yes Brother Living Status: Hx Family Cardiac Disorders: Yes Internal Medicine - H&P: Meds Aspirin [Lo-Dose Aspirin EC] 81 mg PO DAILY 06/09/17 [History] Albuterol Sulfate [Albuterol Inhaler] 2 puff IH Q6HR PRN #1 hfa.aer.ad 06/19/17 [Rx] Naproxen Sodium [Aleve] 1 tab PO DAILY 08/19/17 [History] Tiotropium [Spiriva] 18 mcg IH DAILY PRN 08/19/17 [History] Ondansetron [Zofran] 8 mg PO Q8HR PRN 08/23/17 [History] Prochlorperazine Maleate [Compazine] 10 mg PO Q8HR PRN 08/23/17 [History] 3 Allergy/AdvReac Type Severity Reaction Status Date / Time Penicillins AdvReac Rash Verified 07/31/17 11:47 Sulfa (Sulfonamide AdvReac Rash Verified 07/31/17 11:47 Antibiotics) All Systems PM: A 10-system review of systems was performed and is negative for pertinent findings except as documented above in the HPI. - Constitutional Constitutional: no chills, no fever(s), no night sweats - EENT Eyes: no change in vision, no discharge, no pain, no photophobia Nose, mouth and throat: no dysphagia, no nasal discharge, no neck pain, no sore throat - Cardiovascular Cardiovascular ROS IM: dyspnea, no chest pain, no diaphoresis, no lightheadedness, no palpitations, no syncope - Respiratory Respiratory: cough - Gastrointestinal Gastrointestinal: no abdominal pain, no diarrhea, no hematemesis, no hematochezia, no melena, no nausea, no vomiting - Genitourinary Genitourinary: no change in urinary stream, no dysuria, no flank pain, no hematuria - Musculoskeletal Musculoskeletal ROS IM: no numbness, no tingling - Integumentary Integumentary IM: no rash, no unusual bruising - Neurological Neurological ROS: no confusion, no convulsions, no focal weakness, no numbness, no tingling, no tremor(s) - Hematologic/Lymphatic Hematologic/Lymphatic: no easy bruising - Constitutional Vitals: Temp Pulse Resp BP Pulse Ox 97.9 F 92 16 150/65 97 08/23/17 12:24 08/23/17 14:20 08/23/17 14:20 08/23/17 14:20 08/23/17 14:20 General appearance: Present: A&O X 3 - Head Head exam: Present: atraumatic, normocephalic - Eye Eye exam: Present: PERRL, conjuntiva pink, sclera anicteric Pupils: Present: PERRL - Neck Neck exam general surgery: Present: supple, trachea midline. Absent: lymphadenopathy - Respiratory Respiratory exam: Present: CTAB. Absent: accessory muscle use, rales, rhonchi, wheezes - Cardiovascular Cardiovascular exam: Present: RRR, +S1, +S2. Absent: diastolic murmur, gallop, rubs, systolic murmur - GI/Abdominal GI/Abdominal exam: Present: normal bowel sounds, soft, no peritoneal signs. Absent: distended, tenderness - Extremities Exam Extremities exam: Present: warm, radial pulses palpable and symmetrical. Absent : calf tenderness, cyanotic, pedal edema - Neurological Exam Neurological exam: Present: CN II-XII intact, oriented X3, no focal deficits. Absent: pronater drift, facial droop, speech deficit - Skin Skin exam: Present: dry, intact Internal Med - H&P Results - Labs CBC & Chem 7: 08/23/17 12:55 08/23/17 12:55 - EKG Data EKG shows normal: sinus rhythm Rate: tachycardia - EKG Data Prior EKG available for review: yes EKG comments: 08/23/17 18:51 Patient has right bundle ingrid block which was not present previous - Diagnostic Studies Other Images Additional comments: Chest CTA 08/23/17 12:34 IMPRESSION: 1. No evidence for acute pulmonary embolism. 2. No evidence for pneumonia. Subsegmental atelectasis middle lobe at the lung base. 3. Suggestion of a 4 mm posterior segment right upper lobe nodule. If patient has high risk factors for lung cancer 12 month follow-up would be advised otherwise no follow-up. D/ / Lucien Scott MD / Lucien Scott MD Interpreting Provider: Lucien Scott MD
[2017-08-23] MEDS: 0.9 % Sodium Chloride 1,000 ML IVC SCH (17:03)
[2017-08-24 01:32] LABS: Hematocrit 29.1 % (35.3-44.9); Hemoglobin 9.4 g/dL (11.5-15.4); Mean Corpuscular HGB Conc 32.3 g/dL (31.6-35.5); Mean Corpuscular Hemoglobin 28.7 pg (28.0-33.3); Mean Platelet Volume 9.6 fL (9.4-12.4); Platelet Count 186 K/mcL (140-400); Red Blood Count 3.27 M/mcL (3.82-4.97)
[2017-08-24 01:44] LABS: BUN/Creatinine Ratio 18 (6-26); Blood Urea Nitrogen 16 mg/dL (8-23); Calcium 8.6 mg/dL (8.6-10.3); Carbon Dioxide 27 mEq/L (23-29); Chloride 104 mEq/L (98-107); Glucose 112 mg/dL (70-105); Osmolality,Calculated 284 (280-300); Potassium 4.3 mEq/L (3.5-5.1); Sodium 136 mEq/L (136-145); eGFR For African Americans > 60 (> 60); eGFR For Non-African Americans > 60 (> 60)
[2017-08-24 01:55] LABS: Lymphocytes # 0.8 K/mcL (0.6-4.6); Monocytes # 1.5 K/mcL (0.0-1.3); Neutrophils # 73.4 K/mcL (1.6-8.9); Platelet Estimate Normal (Normal)
[2017-08-24] MEDS: 0.9 % Sodium Chloride 1,000 ML IVC SCH ×2 (06:33→21:15)
[2017-08-24] MEDS: Aspirin 81 MG TAB.CHEW PO SCH (07:51)
--- NOTE | 2017-08-24 13:03 | Internal Med Progress Note ---
Date of Encounter: 08/24/17 Time of Encounter: 08:30 - Assessment and plan (1) Anxiety Current Visit: Yes Status: Acute Assessment and plan: Pt reports improvement. Continue Ativan prn. (2) Leukocytosis Current Visit: Yes Status: Acute Assessment and plan: WBC 75,000. Afebrile. Patient received Neulasta injection yesterday, suspect this is the source of leukocytosis. Continue to monitor. Qualifiers: Leukocytosis type: unspecified Qualified Code(s): D72.829 - Elevated white blood cell count, unspecified (3) COPD (chronic obstructive pulmonary disease) Current Visit: Yes Status: Chronic Assessment and plan: Chronic. No acute exacerbation. Continue home medications. Qualifiers: COPD type: emphysema Emphysema type: centrilobular Qualified Code(s): J43.2 - Centrilobular emphysema (4) Small cell lung cancer Current Visit: No Status: Chronic Assessment and plan: New diagnosis in June. Currently being treated with chemotherapy at cancer Center. Follow as outpatient. Qualifiers: Laterality: right Qualified Code(s): C34.91 - Malignant neoplasm of unspecified part of right bronchus or lung (5) DVT prophylaxis Current Visit: Yes Status: Acute Assessment and plan: DENNY rueda - Time Spent With Patient less than 15 minutes - Subjective Interval history: Patient was seen and assessed at 0830 a.m. She is alert and awake. She denies pain, nausea or vomiting. She denies headache or abdominal pain. No dizziness chest pain or shortness of breath. - Constitutional Vitals: Temp Pulse Resp BP Pulse Ox 99.0 F 74 17 118/64 93 08/24/17 11:30 08/24/17 11:30 08/24/17 11:30 08/24/17 11:30 08/24/17 11:30 General appearance: Present: A&O X 3, pleasant, no acute distress, answers questions appropriately - Head Head exam: Present: atraumatic, normal inspection, normocephalic - Eye Eye exam: Present: normal appearance, conjuntiva pink, sclera anicteric - Neck Neck exam general surgery: Present: normal inspection, supple, trachea midline. Absent: lymphadenopathy, tenderness - Respiratory Respiratory exam: Present: chest wall tenderness, CTAB. Absent: accessory muscle use, decreased breath sounds, rales, respiratory distress, rhonchi, wheezes - Cardiovascular Cardiovascular exam: Present: RRR, +S1, +S2. Absent: diastolic murmur, gallop, rubs, systolic murmur - GI/Abdominal GI/Abdominal exam: Present: normal bowel sounds, soft. Absent: distended, hepatomegaly, tenderness - Extremities Exam Extremities exam: Present: normal capillary refill, warm, radial pulses palpable and symmetrical. Absent: calf tenderness, cyanotic, pedal edema, tenderness - Neurological Exam Neurological exam: Present: alert, oriented X3, no focal deficits. Absent: facial droop, speech deficit - Skin Skin exam: Present: dry, intact, normal color, warm. Absent: rash Internal Medicine: Result - Labs CBC & Chem 7: 08/24/17 01:24 08/24/17 01:24 Labs: Short CBC 08/24/17 Range/Units 01:24 WBC 75.7 H* (4.3-11.1) K/mcL Hgb 9.4 L (11.5-15.4) g/dL Hct 29.1 L (35.3-44.9) % Plt Count 186 (140-400) K/mcL Neutrophils # 73.4 H (1.6-8.9) K/mcL BMP 08/24/17 01:24 Sodium 136 Potassium 4.3 Chloride 104 Carbon Dioxide 27 BUN 16 Creatinine 0.88 Glucose 112 H Calcium 8.6 Cardiac Enzymes 08/23/17 08/24/17 Range/Units 19:45 01:24 Troponin I < 0.03 < 0.03 (< 0.04) ng/mL - ABG Interpretation ABG results: PT/INR, D-dimer PT 11.1 Seconds (9.4-12.1) 08/23/17 12:55 Consult Discharge Plan - Plan Referrals: NONE,PCP [Primary Care Provider] -
[2017-08-25 04:23] LABS: Hemoglobin 9.1 g/dL (11.5-15.4); Red Cell Distribution Width 17.1 % (11.5-14.5)
[2017-08-25 04:24] LABS: Mean Corpuscular HGB Conc 31.4 g/dL (31.6-35.5); Mean Corpuscular Hemoglobin 28.6 pg (28.0-33.3); Mean Corpuscular Volume 91.2 fL (83.0-100.0); Mean Platelet Volume 9.5 fL (9.4-12.4); Platelet Count 168 K/mcL (140-400); Red Blood Count 3.18 M/mcL (3.82-4.97)
[2017-08-25 04:44] LABS: BUN/Creatinine Ratio 34 (6-26); Blood Urea Nitrogen 12 mg/dL (8-23); Calcium 5.6 mg/dL (8.6-10.3); Carbon Dioxide 19 mEq/L (23-29); Chloride 120 mEq/L (98-107); Glucose 74 mg/dL (70-105); Osmolality,Calculated 292 (280-300); Potassium 2.8 mEq/L (3.5-5.1); Sodium 142 mEq/L (136-145); eGFR For African Americans > 60 (> 60); eGFR For Non-African Americans > 60 (> 60)
[2017-08-25 05:06] LABS: Anisocytosis 1+ (Not Present); Dohle Bodies Present (Not Present); Monocytes # 0.7 K/mcL (0.0-1.3); Neutrophils # 62.5 K/mcL (1.6-8.9); Platelet Estimate Normal (Normal)
[2017-08-25 05:40] LABS: VBG PH 7.31 pH Units (7.32-7.42)
[2017-08-25] MEDS: Aspirin 81 MG TAB.CHEW PO SCH (07:55)
[2017-08-25] MEDS ORDERED: Calcium Gluconate 2,000 MG in D5% in Water 100 ML IVPB ONE (08:11)
--- NOTE | 2017-08-25 09:08 | Internal Med Progress Note ---
Date of Encounter: 08/25/17 Time of Encounter: 09:09 - Assessment and plan (1) Dyspnea Current Visit: Yes Status: Acute Assessment and plan: presented with shortness of breath, trembling and feeling as if she was going to "jump out of her skin". Chest CTA negative for pneumonia, no evidence of pulmonary embolism. She does have underlying COPD however no evidence of exacerbation. Suspect anxiety related secondary to recent steroid use. Dyspnea resolved with treating anxiety, adequately oxygenating on room air. Qualifiers: Dyspnea type: shortness of breath Qualified Code(s): R06.02 - Shortness of breath; R06.00 - Dyspnea, unspecified; R06.01 - Orthopnea (2) Anxiety Current Visit: Yes Status: Acute Assessment and plan: presented with shortness of breath, trembling and feeling as if she was going to "jump out of her skin". No previous hx anxiety disorder. Not on anti-anxiety medication at home. Was recently treated with steroids which could have contributed to anxious feeling. Symptoms appear improved on 08/25 exam. Stop IV ativan and monitor. If anxiety recurs then consider adding low-dose SSRI (3) Leukocytosis Current Visit: Yes Status: Acute Assessment and plan: WBC 75K. Afebrile, no tachycardia or hypotension. Chest CTA without evidence of pneumonia, UA unremarkable. Received Neulasta injection 08/23/17; suspect this is the source of leukocytosis. Oncology consulted. WBC 65K on 08/25 Qualifiers: Leukocytosis type: unspecified Qualified Code(s): D72.829 - Elevated white blood cell count, unspecified (4) Small cell lung cancer Current Visit: No Status: Chronic Assessment and plan: diagnosed 06/2017. Currently receiving chemotherapy; last dose 08/19/17. Oncology consulted Qualifiers: Laterality: right Qualified Code(s): C34.91 - Malignant neoplasm of unspecified part of right bronchus or lung (5) Hypokalemia Current Visit: Yes Status: Acute Assessment and plan: K 2.8. No recent loose stool, Mg 2.0 suspect secondary to carboplatin received last week. IV and PO replacement ordered. Monitor repeat K (6) Hypocalcemia Current Visit: Yes Status: Acute Assessment and plan: Ca 5.6; previously normal. Mg 2.0 suspect secondary to carboplatin received last week. Asymptomatic, no EKG changes. IV replacement ordered. Monitor repeat Ca (7) COPD (chronic obstructive pulmonary disease) Current Visit: Yes Status: Chronic Assessment and plan: Chronic. No acute exacerbation. Continue home medications. Qualifiers: COPD type: emphysema Emphysema type: centrilobular Qualified Code(s): J43.2 - Centrilobular emphysema (8) DVT prophylaxis Current Visit: Yes Status: Acute Assessment and plan: heparin - Time Spent With Patient less than 15 minutes - Subjective Interval history: Seen and examined at bedside, patient is new to me. Information obtained from chart review and patient report. Says she feels better today, no SOB, no CP. She thinks anxiety was causing her SOB. No numbness, tingling or paresthesias - Constitutional Vitals: Temp Pulse Resp BP Pulse Ox 98.4 F 76 18 173/73 91 08/25/17 06:55 08/25/17 06:55 08/25/17 06:55 08/25/17 06:55 08/25/17 06:55 General appearance: Present: A&O X 3, pleasant, no acute distress, answers questions appropriately - Head Head exam: Present: atraumatic, normocephalic - Eye Eye exam: Present: PERRL, conjuntiva pink, sclera anicteric Pupils: Present: PERRL - Neck Neck exam general surgery: Present: supple, trachea midline. Absent: lymphadenopathy - Respiratory Respiratory exam: Present: CTAB. Absent: accessory muscle use, rales, rhonchi, wheezes - Cardiovascular Cardiovascular exam: Present: RRR, +S1, +S2. Absent: diastolic murmur, gallop, rubs, systolic murmur - GI/Abdominal GI/Abdominal exam: Present: normal bowel sounds, soft, no peritoneal signs. Absent: distended, tenderness - Extremities Exam Extremities exam: Present: warm, radial pulses palpable and symmetrical. Absent : calf tenderness, cyanotic, pedal edema - Neurological Exam Neurological exam: Present: CN II-XII intact, oriented X3, no focal deficits. Absent: pronater drift, facial droop, speech deficit - Skin Skin exam: Present: dry, intact Internal Medicine: Result - Labs CBC & Chem 7: 08/25/17 04:10 08/25/17 04:10 Labs: Short CBC 08/25/17 Range/Units 04:10 WBC 65.1 H* (4.3-11.1) K/mcL Hgb 9.1 L (11.5-15.4) g/dL Hct 29.0 L (35.3-44.9) % Plt Count 168 (140-400) K/mcL Neutrophils # 62.5 H (1.6-8.9) K/mcL BMP 08/25/17 04:10 Sodium 142 Potassium 2.8 L Chloride 120 H Carbon Dioxide 19 L BUN 12 Creatinine 0.35 L Glucose 74 Calcium 5.6 L* - ABG Interpretation ABG results: PT/INR, D-dimer PT 11.1 Seconds (9.4-12.1) 08/23/17 12:55 Consult Discharge Plan - Plan Referrals: NONE,PCP [Primary Care Provider] -
[2017-08-25] MEDS ORDERED: Calcium Gluconate 2,000 MG in 0.9 % Sodium Chloride 100 ML IVPB ONE (09:15)
--- NOTE | 2017-08-25 10:01 | Oncology Inp Consult Note ---
<Jacki Higuera - Last Filed: 08/25/17 16:43> Date of Encounter: 08/25/17 Time of Encounter: 09:53 Assessment and Plan (1) Small cell lung cancer Status: Chronic Assessment and plan: Small cell lung cancer-- Stage IV. S/P Cycle 4 Day 1-3 carbo/VP16 08/19/17-. Leukocytosis-secondary to Neulasta, improving, WBC count 65/Neutrophil 62 today compared with WBC 75/Neutrophil 66 on admission. Anemia-stable, asymptomatic, continue to monitor. Electrolyte imbalances most likely secondary to carbo administration, agree with plan to continue to replace per hospitalist team with continued monitoring. Patient is asymptomatic at this time. She will likely benefit from continued, close monitoring of electrolyte panel with chemotherapy as these abnormalities could be a continual problem. Dr. Hopper, treating oncologist aware of admission. CT Chest/Abdomen/Pelvis 08/07/2017 shows resolved mediastinal and right hilar adenopathy. Resolved right pleural effusion and interstitial abnormality. Minimal residual atelectasis throughout the right lung with no new pulmonary abnormality and No evidence of abdominopelvic metastatic disease. Please refer to Dr. Matthews's attestation below for further details. Qualifiers: Laterality: right Qualified Code(s): C34.91 - Malignant neoplasm of unspecified part of right bronchus or lung - Data of Consult Patient: known to practice within the last 3 years Consult date: 08/25/17 Requesting Physician: Tiera Calvert Primary Care Provider: PCP NONE - Consult Narrative Reason for consult: Small Cell Lung Cancer History of present illness: Ms. Tena is a 81 year old female known to the [facility] with past medical history significant for small cell lung cancer-- stage IV (M1a) with pleural mets. Newly diagnosed, patient was hospitalized in June 2017 due to shortness of breath. CT scan at this time revealed large lung mass --rt hilum, mediastinum-causing post obstructive pneumonia, rt middle lobe consolidation. She had rt moderate effusion which was tapped, no malignant cells. Underwent a bronchoscopy bx--that showed small cell lung cancer. Ct abd/pelvis--no mets, CT head was done as she refused MRI--no evidence of mets. She underwent C4 carbo/ VP16 08/19/17-08/21/17. She has neulasta to prevent chemo induced neutropenia. Patient presented to [facility] ED via squad for sudden onset SOB/Dyspnea on 2017. Patient admitted with hypocalcemia, hypokalemia, dyspnea and anxiety. Past Med Surg Social Fam HX - Past Medical History Medical history: other Psychiatric history: no psych history - Past Surgical History Surgical History: no surgical history - Social History Smoking Status: Former smoker Smokeless Tobacco Status: No Alcohol use: none Drug use: none - Family History Mother Family Member Ethnicity: Non- Living Status: Age at : 63 Cause of : Stroke Hx Family Cardiac Disorders: Yes Father Living Status: Age at : 66 Cause of : Heart attack Hx Family Cardiac Disorders: Yes Brother Living Status: Hx Family Cardiac Disorders: Yes Medications and Allergies Aspirin [Lo-Dose Aspirin EC] 81 mg PO DAILY 06/09/17 [History] Albuterol Sulfate [Albuterol Inhaler] 2 puff IH Q6HR PRN #1 hfa.aer.ad 06/19/17 [Rx] Naproxen Sodium [Aleve] 1 tab PO DAILY 08/19/17 [History] Tiotropium [Spiriva] 18 mcg IH DAILY PRN 08/19/17 [History] Ondansetron [Zofran] 8 mg PO Q8HR PRN 08/23/17 [History] Prochlorperazine Maleate [Compazine] 10 mg PO Q8HR PRN 08/23/17 [History] 3 Allergy/AdvReac Type Severity Reaction Status Date / Time Penicillins AdvReac Rash Verified 07/31/17 11:47 Sulfa (Sulfonamide AdvReac Rash Verified 07/31/17 11:47 Antibiotics) Constitutional: Present: fatigue. Absent: chills, fever(s), weakness, weight loss Cardiovascular: Absent: chest pain, irregular heart rhythm, palpitations Respiratory: Absent: cough Additional comments: patient reports dyspnea froom panic attack prior to admission, currently denies dyspnea Gastrointestinal: Absent: abdominal pain, diarrhea, nausea, vomiting Genitourinary: Absent: dysuria Musculoskeletal: Absent: muscle cramps, muscle weakness, numbness, tingling Integumentary: Absent: skin ulcer, wounds Neurological: Absent: focal weakness, loss of vision Psychiatric: Present: anxiety, panic attacks Hematologic/Lymphatic: Absent: easy bleeding Oncology - Exam - Constitutional Vitals: Temp Pulse Resp BP Pulse Ox 98.4 F 76 18 173/73 91 08/25/17 06:55 08/25/17 06:55 08/25/17 06:55 08/25/17 06:55 08/25/17 06:55 General appearance: no acute distress, no febrile - Head Head exam: Present: atraumatic - Respiratory Respiratory exam: Present: CTAB - Cardiovascular Cardiovascular exam: Present: RRR, +S1, +S2 - GI/Abdominal GI/Abdominal exam: Present: normal bowel sounds, soft. Absent: guarding, tenderness - Extremities Exam Extremities exam: Present: normal inspection. Absent: calf tenderness - Neurological Exam Neurological exam: Present: alert, oriented X3, no focal deficits, strengths equal and symetr throughout - Psychiatric Psychiatric exam: Present: normal affect, normal mood - Skin Skin exam: Present: normal color, warm Oncology - Results Labs: Short CBC 08/25/17 Range/Units 04:10 WBC 65.1 H* (4.3-11.1) K/mcL Hgb 9.1 L (11.5-15.4) g/dL Hct 29.0 L (35.3-44.9) % Plt Count 168 (140-400) K/mcL Neutrophils # 62.5 H (1.6-8.9) K/mcL BMP 08/25/17 04:10 Sodium 142 Potassium 2.8 L Chloride 120 H Carbon Dioxide 19 L BUN 12 Creatinine 0.35 L Glucose 74 Calcium 5.6 L* Consult Discharge Plan - Plan Referrals: NONE,PCP [Primary Care Provider] - <Gokul Matthews - Last Filed: 08/26/17 09:37> Date of Encounter: 08/26/17 - Data of Consult Requesting Physician: Tiera Calvert Primary Care Provider: PONCE NONE - Consult Narrative History of present illness: Ms. Tena is a 81 year old female Oncology - Exam - Constitutional Vitals: Temp Pulse Resp BP Pulse Ox 98.0 F 61 16 146/71 95 08/26/17 07:43 08/26/17 07:43 08/26/17 07:43 08/26/17 07:43 08/26/17 07:43 Oncology - Results Labs: Short CBC 08/26/17 Range/Units 04:12 WBC 34.2 H* (4.3-11.1) K/mcL Hgb 9.7 L (11.5-15.4) g/dL Hct 30.4 L (35.3-44.9) % Plt Count 172 (140-400) K/mcL BMP 08/25/17 08/26/17 15:04 04:12 Sodium 137 Potassium 4.5 D 4.2 Chloride 103 Carbon Dioxide 28 BUN 14 Creatinine 0.59 L Glucose 94 Calcium 9.2 9.5 Liver Function 08/25/17 Range/Units 05:20 Albumin 3.5 (3.5-5.7) g/dL - Attending Attestation Seen and examined patient and agree with plan. Electrolyte abnormalities are from Carboplatin. She may need frequent monitoring and repletion with subsequent cycles. Her dyspnea sounds like it was a panic attack.
[2017-08-25 12:55] LABS: Albumin 3.5 g/dL (3.5-5.7)
[2017-08-25] MEDS: *HR* Heparin 5,000 UNIT/ML VIAL SQ SCH ×2 (15:13→21:07)
[2017-08-25 16:16] LABS: Potassium 4.5 mEq/L (3.5-5.1)
[2017-08-25 17:17] LABS: Calcium 9.2 mg/dL (8.6-10.3)
[2017-08-26 05:01] LABS: Hemoglobin 9.7 g/dL (11.5-15.4)
[2017-08-26 05:02] LABS: Hematocrit 30.4 % (35.3-44.9); Mean Corpuscular HGB Conc 31.9 g/dL (31.6-35.5); Mean Corpuscular Hemoglobin 28.8 pg (28.0-33.3); Mean Corpuscular Volume 90.2 fL (83.0-100.0); Mean Platelet Volume 9.8 fL (9.4-12.4); Platelet Count 172 K/mcL (140-400); Red Blood Count 3.37 M/mcL (3.82-4.97); Red Cell Distribution Width 16.9 % (11.5-14.5)
[2017-08-26 05:28] LABS: BUN/Creatinine Ratio 24 (6-26); Blood Urea Nitrogen 14 mg/dL (8-23); Calcium 9.5 mg/dL (8.6-10.3); Carbon Dioxide 28 mEq/L (23-29); Chloride 103 mEq/L (98-107); Glucose 94 mg/dL (70-105); Osmolality,Calculated 284 (280-300); Potassium 4.2 mEq/L (3.5-5.1); Sodium 137 mEq/L (136-145); eGFR For African Americans > 60 (> 60); eGFR For Non-African Americans > 60 (> 60)
[2017-08-26] MEDS: *HR* Heparin 5,000 UNIT/ML VIAL SQ SCH (05:48)
[2017-08-26] MEDS: 0.9 % Sodium Chloride 1,000 ML IVC SCH (08:52)
[2017-08-26] MEDS: Aspirin 81 MG TAB.CHEW PO SCH (09:45)
[2017-08-26 11:16] VITALS: BP 139/76
--- NOTE | 2017-08-26 12:26 | Discharge Summary ---
Date of Encounter: 08/26/17 Time of Encounter: 12:25 - Discharge Diagnosis (1) Dyspnea Priority: Secondary Status: Resolved Comments: presented with shortness of breath, trembling and feeling as if she was going to "jump out of her skin". Chest CTA negative for pneumonia, no evidence of pulmonary embolism. She does have underlying COPD however no evidence of exacerbation. Suspect anxiety related secondary to recent steroid use. Dyspnea resolved without intervention, adequately oxygenating on room air. Qualifiers: Dyspnea type: shortness of breath Qualified Code(s): R06.02 - Shortness of breath; R06.00 - Dyspnea, unspecified; R06.01 - Orthopnea (2) Anxiety Priority: Primary Status: Resolved Comments: presented with shortness of breath, trembling and feeling as if she was going to "jump out of her skin". No previous hx anxiety disorder. Not on anti-anxiety medication at home. Was recently treated with steroids which could have contributed to anxious feeling. (3) Leukocytosis Priority: Primary Status: Acute Comments: Leukocytosis-secondary to Neulasta, improving. WBC peaked at 75K and trended down to 32K at discharge. Anemia-stable, asymptomatic. Oncology followed. Will need weekly labs at discharge. Dr. Hopper to follow. Plan for HHC at discharge for lab draws Qualifiers: Leukocytosis type: unspecified Qualified Code(s): D72.829 - Elevated white blood cell count, unspecified (4) Small cell lung cancer Priority: Secondary Status: Chronic Comments: diagnosed 06/2017. Currently receiving chemotherapy; last dose 08/19/17. Follow -up with oncology outpatient as previously planned. Qualifiers: Laterality: right Qualified Code(s): C34.91 - Malignant neoplasm of unspecified part of right bronchus or lung (5) Hypokalemia Priority: Primary Status: Resolved Comments: K 2.8. No recent loose stool, Mg 2.0. Most likely secondary to recent carboplatin administration. Potassium normalized with IV and PO replacement. Will need to have weekly CMP, to be followed by Dr. Hopper. Oncology followed while inpatient. Plan for HHC at discharge for lab draws (6) Hypocalcemia Priority: Primary Status: Resolved Comments: Ca 5.6; previously normal. Most likely secondary to carbo administration. Calcium normalized with 2 g IV calcium gluconate. Discharge home on oral calcium. Will need to have weekly CMP, to be followed by Dr. Hopper. Oncology followed while inpatient. Plan for [facility] at discharge for lab draws (7) COPD (chronic obstructive pulmonary disease) Priority: Secondary Status: Chronic Comments: Chronic. No acute exacerbation. Continue home medications. Qualifiers: COPD type: emphysema Emphysema type: centrilobular Qualified Code(s): J43.2 - Centrilobular emphysema - Discharge Medications Prescriptions: Calcium Carbonate [Tums] 1,000 mg PO BID #60 tab.chew Potassium Chloride 20 meq PO DAILY #30 tab.er.prt Home Medications: Aspirin [Lo-Dose Aspirin EC] 81 mg PO DAILY 06/09/17 [History] Albuterol Sulfate [Albuterol Inhaler] 2 puff IH Q6HR PRN #1 hfa.aer.ad 06/19/17 [Rx] Naproxen Sodium [Aleve] 1 tab PO DAILY 08/19/17 [History] Tiotropium [Spiriva] 18 mcg IH DAILY PRN 08/19/17 [History] Ondansetron [Zofran] 8 mg PO Q8HR PRN 08/23/17 [History] Prochlorperazine Maleate [Compazine] 10 mg PO Q8HR PRN 08/23/17 [History] Calcium Carbonate [Tums] 1,000 mg PO BID #60 tab.chew 08/26/17 [Rx] Potassium Chloride 20 meq PO DAILY #30 tab.er.prt 08/26/17 [Rx] Allergies/Adverse Reactions: 3 Allergy/AdvReac Type Severity Reaction Status Date / Time Penicillins AdvReac Rash Verified 07/31/17 11:47 Sulfa (Sulfonamide AdvReac Rash Verified 07/31/17 11:47 Antibiotics) Date of admission: 08/23/17 15:59 Primary care physician: PCP NONE Consults: 08/23/17 16:18 Consult to Wet Roaster [CONS] Routine Reason for SW Consult: discharge planning 08/25/17 08:06 Consult to Oncology [CONS] Routine Consulting Provider: Oncology [facility] Reason for Consult: small cell lung cancer Call Completed: Yes Discharging clinician: Tere Jaquez Anticipated date of discharge: 08/26/17 - Patient Status Disposition: Home Health Service Condition: Good Functional capacity at discharge: independent ambulation Overall status at discharge: patient is back to baseline - Discharge Instructions Instructions: Carboplatin (Injection), Hypocalcemia (DC), Hypokalemia (DC) Follow Up With: Fanny Lakhani MD [Partnered Physician] - 09/09/17 1:20 pm - Diet and Activity Activity: increase activity as tolerated Diet: advance to your usual diet Interval History: Seen and examined at bedside; patient say sshe feels better and wants to go home today. Discussed with Oncology and okay to discharge home with Ca and K supplements. Dr. Hopper agreeable to follow lab work Hospital course: See assessment and plan for hospital course - Time Spent with Patient Total time spent providing and/or coordinating discharge services: - Constitutional Vitals: Temp Pulse Resp BP Pulse Ox 98.9 F 62 17 139/76 94 08/26/17 11:13 08/26/17 11:13 08/26/17 11:13 08/26/17 11:13 08/26/17 11:13 General appearance: Present: A&O X 3, pleasant, no acute distress, answers questions appropriately - Head Head exam: Present: atraumatic, normocephalic - Eye Eye exam: Present: PERRL, conjuntiva pink, sclera anicteric Pupils: Present: PERRL - Neck Neck exam general surgery: Present: supple, trachea midline. Absent: lymphadenopathy - Respiratory Respiratory exam: Present: CTAB. Absent: accessory muscle use, rales, rhonchi, wheezes - Cardiovascular Cardiovascular exam: Present: RRR, +S1, +S2. Absent: diastolic murmur, gallop, rubs, systolic murmur - GI/Abdominal GI/Abdominal exam: Present: normal bowel sounds, soft, no peritoneal signs. Absent: distended, tenderness - Extremities Exam Extremities exam: Present: warm, radial pulses palpable and symmetrical. Absent : calf tenderness, cyanotic, pedal edema - Neurological Exam Neurological exam: Present: CN II-XII intact, oriented X3, no focal deficits. Absent: pronater drift, facial droop, speech deficit - Skin Skin exam: Present: dry, intact
--- NOTE | 2017-08-26 13:28 | Physician Discharge Referral ---
Home Health/Hosp Referral Info Transfer to: Home Health Attending Provider: Tere Jaquez CNP Provider in Charge Post Discharge: Other (Dr. Hopper) - Diagnosis (1) Dyspnea Status: Resolved (2) Anxiety Status: Resolved (3) Leukocytosis Status: Acute (4) Small cell lung cancer Status: Chronic (5) Hypokalemia Status: Resolved (6) Hypocalcemia Status: Resolved (7) COPD (chronic obstructive pulmonary disease) Status: Chronic - Respiratory Orders None Smoking Cessation: Smoking cessation has been advised. For more information, call the [place] Tobacco Quit Line at 1-640-CAYJ-NOW. - Services Needed Following services are medically necessary services: Nursing, Home Health Aide, Physical Therapy, Occupational Therapy Other Treatments: Please draw CBC with diff and CMP, Mg, Calcium on 08/27/2017. Please fax results to Dr. Hopper at [phone] Will need weekly CBC w/o diff, CMP, Mg and Calcium unless otherwise notified by Dr. Hopper - Transfer Medications Prescriptions: Calcium Carbonate [Tums] 1,000 mg PO BID #60 tab.chew Potassium Chloride 20 meq PO DAILY #30 tab.er.prt Home Medications: Aspirin [Lo-Dose Aspirin EC] 81 mg PO DAILY 06/09/17 [History] Albuterol Sulfate [Albuterol Inhaler] 2 puff IH Q6HR PRN #1 hfa.aer.ad 06/19/17 [Rx] Naproxen Sodium [Aleve] 1 tab PO DAILY 08/19/17 [History] Tiotropium [Spiriva] 18 mcg IH DAILY PRN 08/19/17 [History] Ondansetron [Zofran] 8 mg PO Q8HR PRN 08/23/17 [History] Prochlorperazine Maleate [Compazine] 10 mg PO Q8HR PRN 08/23/17 [History] Calcium Carbonate [Tums] 1,000 mg PO BID #60 tab.chew 08/26/17 [Rx] Potassium Chloride 20 meq PO DAILY #30 tab.er.prt 08/26/17 [Rx] Allergies/Adverse Reactions: 3 Allergy/AdvReac Type Severity Reaction Status Date / Time Penicillins AdvReac Rash Verified 07/31/17 11:47 Sulfa (Sulfonamide AdvReac Rash Verified 07/31/17 11:47 Antibiotics) Certification: Further, I certify that my clinical findings support that this patient is homebound (i.e. absences from home require considerable and taxing effort and are for medical reasons or mu-ism services or infrequently or short duration when for other reasons) because: Homebound Reason: Patient requires assistance of a person or device to safely leave home Attestation: My signature below is to certify that this patient is under my care and that I, or nurse practitioner, or a physician's graduate assistant athletic trainer working with me, has a face-to -face encounter with this patient.
== END 2017-08-26 15:04 | disposition home health service (06) ==
LOC: EMEROO 12:22 → 2SOUTHHOLD 12:22 → 3BNU 18:51
PROVIDERS: ADMIT Hospitalist; ATTEND Internal Medicine

== ENCOUNTER 2018-03-16 15:18 | Observation (INO) ==
[2018-03-16] MEDS ORDERED: Isovue-370 500 ML INFUS..BTL IV ONE (15:56)
--- NOTE | 2018-03-16 16:25 | Emergency Department Note ---
Disposition Clinical Impression: Weakness Dyspnea Qualifiers: Dyspnea type: unspecified Qualified Code(s): R06.00 - Dyspnea, unspecified Disposition: Admitted As Inpatient Condition: Good Referrals: NONE,PCP [Primary Care Provider] - Forms: ED Satisfaction Letter Time of Disposition: 18:57 General Adult HPI - General Chief complaint: ED Shortness of Breath/Dyspnea Stated complaint: MERCY, weakness Time Seen by Provider: 03/16/18 15:30 Source: patient, family Nursing Notes Reviewed: Yes Vital Signs Reviewed: Yes - History of Present Illness HPI Narrative: 80 female with significant past medical history of small cell lung cancer presenting to the emergency department with chief complaint of difficulty in breathing and weakness. Patient finished chemotherapy and radiation approximately 4-6 weeks ago. Since then she has not wanted to eat or drink anything. Patient states she has no appetite and things taste plan to her. She went to her oncologist for a routine follow-up today and they were concerned for her increase in difficulty in breathing and increased weakness and centered to the emergency department for further evaluation. Patient denies any chest pain, vomiting, diarrhea. Denies any fevers or productive cough at home. She states over the past few weeks her difficulty in breathing has become worse. She has needed a thoracentesis in the past. Family member at bedside providing the majority of the history of present illness Pain Scale: 0 - Related Data Home Medications Medication Instructions Recorded Confirmed Aspirin [Lo-Dose Aspirin EC] 81 mg PO DAILY 06/09/17 03/16/18 Naproxen Sodium [Aleve] 1 tab PO DAILY 08/19/17 03/16/18 Calcium Carbonate [Tums] 1,000 mg PO BID PRN 11/19/17 03/16/18 Previous Rx's Medication Instructions Recorded Ondansetron [Zofran] 8 mg PO Q8HR PRN #30 tablet 12/14/17 Prochlorperazine Maleate 10 mg PO Q8HR PRN #30 tablet 12/14/17 [Compazine] Docusate Sodium [Colace] 100 mg PO BID PRN #60 capsule 01/06/18 Megestrol Acetate [Megace] 800 mg PO DAILY #400 mls 02/05/18 Allergies Allergy/AdvReac Type Severity Reaction Status Date / Time Penicillins AdvReac Rash Verified 02/05/18 10:51 Sulfa (Sulfonamide AdvReac Rash Verified 02/05/18 10:51 Antibiotics) All systems ED: reviewed and negative except as stated. Constitutional: Reports: weakness. Denies: fever, chills Eyes: Reports: as per HPI ENT ED: Reports: as per HPI Cardiovascular: Reports: dyspnea on exertion. Denies: chest pain, palpitations Respiratory: Reports: cough, dyspnea. Denies: wheezes, hemoptysis, stridor Gastrointestinal: Reports: nausea. Denies: abdominal pain, vomiting, diarrhea Genitourinary: Reports: as per HPI Musculoskeletal: Reports: as per HPI Integumentary: Reports: as per HPI Neurological: Denies: weakness, numbness, paresthesias Psychiatric: Reports: as per HPI Endocrine: Reports: as per HPI Hematological/Lymphatic: Reports: as per HPI Allergic/Immunologic: Reports: as per HPI Past Medical History - Past Medical History Attestation: Yes The following information was validated with the patient. Medical history: Reports: other Surgical history: Reports: no surgical history Psychiatric history: Reports: no psych history - Social History Smoking Status: Former smoker Smokeless Tobacco Status: No Alcohol use: Reports: none Drug use: Reports: none Physical Exam - General Limitations: no limitations General appearance: alert, in no apparent distress - Head Head exam: atraumatic, normocephalic, normal inspection - Eye Eye exam: Present: normal appearance. Absent: scleral icterus, conjunctival injection - ENT ENT exam: mucous membranes dry - Neck Neck exam: Present: normal inspection, full ROM. Absent: tenderness, meningismus - Chest Chest inspection: Present: normal inspection, symmetric chest wall rise. Absent : tenderness, rash - Respiratory Respiratory exam: Present: other (decreased breath sounds bilaterally) - Cardiovascular Cardiovascular exam: Present: normal rhythm, tachycardia, normal heart sounds - Abdominal Exam Abdominal exam: Present: soft. Absent: distention, guarding, rebound - Extremities Exam Extremities exam: Present: full ROM, normal capillary refill. Absent: tenderness - Neurological Exam Neurological exam: Present: alert, oriented X3 - Psychiatric Psychiatric exam: Present: normal affect, normal mood - Skin Skin exam: Present: warm, intact Course Course Narrative: 82-year-old female presenting to the emergency department chief complaint of weakness and difficulty in breathing. Patient has significant history small cell lung cancer who has completed chemotherapy and radiation. Patient also has a history of pleural effusion in the past. Concern for pneumonia, pleural effusion, PE at this time. We will obtain basic laboratory analysis including lactic acid and blood cultures along with a CT of the chest. Patient is alert and oriented 3 and rhythm. Tachycardic but otherwise vital signs stable. Disposition most likely admission the pending results. Patient agrees with this plan. Family members at bedside. - Reevaluation(s) Reevaluation #1: Patient laboratory analysis unchanged from baseline. CTA does show New irregular ground-glass opacities in the paramediastinal aspects of the right upper and lower lobes. Given the configuration this raises the possibility of pulmonary radiation fibrosis. The differential includes pneumonitis. Patient is alert and oriented 3 in the room. Mildly tachycardic but otherwise stable. 1 L of fluid given. Responded well with decreasing heart rate. We will plan to admit the patient at this time for further evaluation and fluid resuscitation. Patient and family member at bedside and agree with This plan. The hospitalist on-call Dr. Tate agrees to accept the patient at this time. Vital Signs Temperature 98.1 F 03/16/18 15:24 Pulse Rate 126 03/16/18 15:24 Respiratory Rate 22 03/16/18 15:24 Blood Pressure 134/74 03/16/18 15:24 O2 Sat by Pulse Oximetry 97 03/16/18 15:24 Temperature 98.1 F 03/16/18 15:24 Pulse Rate 102 03/16/18 16:54 Respiratory Rate 22 03/16/18 15:42 Blood Pressure 137/66 03/16/18 16:54 O2 Sat by Pulse Oximetry 96 03/16/18 16:54 Oxygen Delivery Oxygen Delivery Room Air Medical Decision Making - Lab Data Result diagrams: 03/16/18 16:28 03/16/18 16:28 Lab Results 03/16/18 03/16/18 03/16/18 Range/Units 16:28 16:28 16:28 WBC 6.9 (4.3-11.1) K/mcL RBC 4.81 (3.82-4.97) M/mcL Hgb 13.7 (11.5-15.4) g/dL Hct 40.7 (35.3-44.9) % MCV 84.6 (83.0-100.0) fL MCH 28.5 (28.0-33.3) pg MCHC 33.7 (31.6-35.5) g/dL RDW 12.5 (11.5-14.5) % Plt Count 379 (140-400) K/mcL MPV 10.0 (9.4-12.4) fL Immature Gran % 0.9 (0-4) % Seg Neutrophils % 72.1 % Lymphocytes % 13.7 % Monocytes % 11.3 % Eosinophils % 1.4 % Basophils % 0.6 % Neutrophils # 5.0 (1.6-8.9) K/mcL Lymphocytes # 1.0 (0.6-4.6) K/mcL Monocytes # 0.8 (0.0-1.3) K/mcL Eosinophils # 0.1 (0.0-0.6) K/mcL Basophils # 0.0 (0.0-0.2) K/mcL Sodium 135 L (136-145) mEq/L Potassium 3.7 (3.5-5.1) mEq/L Chloride 101 (98-107) mEq/L Carbon Dioxide 23 (23-29) mEq/L BUN 30 H (8-23) mg/dL Creatinine 0.85 (0.60-1.20) mg/dL Est GFR ( Amer) > 60 (> 60) Est GFR (Non-Af Amer) > 60 (> 60) BUN/Creatinine Ratio 35 H (6-26) Glucose 195 H (70-105) mg/dL Calculated Osmolality 292 (280-300) Lactic Acid 2.3 H (0.5-2.2) mmol/L Calcium 10.2 (8.6-10.3) mg/dL Troponin I < 0.03 (< 0.04) ng/mL B-Natriuretic Peptide (Less than 100) pg/mL 03/16/18 Range/Units 16:28 WBC (4.3-11.1) K/mcL RBC (3.82-4.97) M/mcL Hgb (11.5-15.4) g/dL Hct (35.3-44.9) % MCV (83.0-100.0) fL MCH (28.0-33.3) pg MCHC (31.6-35.5) g/dL RDW (11.5-14.5) % Plt Count (140-400) K/mcL MPV (9.4-12.4) fL Immature Gran % (0-4) % Seg Neutrophils % % Lymphocytes % % Monocytes % % Eosinophils % % Basophils % % Neutrophils # (1.6-8.9) K/mcL Lymphocytes # (0.6-4.6) K/mcL Monocytes # (0.0-1.3) K/mcL Eosinophils # (0.0-0.6) K/mcL Basophils # (0.0-0.2) K/mcL Sodium (136-145) mEq/L Potassium (3.5-5.1) mEq/L Chloride (98-107) mEq/L Carbon Dioxide (23-29) mEq/L BUN (8-23) mg/dL Creatinine (0.60-1.20) mg/dL Est GFR ( Amer) (> 60) Est GFR (Non-Af Amer) (> 60) BUN/Creatinine Ratio (6-26) Glucose (70-105) mg/dL Calculated Osmolality (280-300) Lactic Acid (0.5-2.2) mmol/L Calcium (8.6-10.3) mg/dL Troponin I (< 0.04) ng/mL B-Natriuretic Peptide 59 (Less than 100) pg/mL - EKG Data EKG #1 EKG attestation: Yes I reviewed and interpreted this EKG. EKG results narrative: Sinus tachycardia. 108 bpm. Incomplete right bundle branch block. No signs of acute ST segment elevation or ischemia. Compared to previous EKG completed on 06/09/2017 no significant changes noted
[2018-03-16 16:45] LABS: Basophils % 0.6 %; Eosinophils # 0.1 K/mcL (0.0-0.6); Eosinophils % 1.4 %; Hematocrit 40.7 % (35.3-44.9); Hemoglobin 13.7 g/dL (11.5-15.4); Immature Granulocytes % 0.9 % (0-4); Lymphocytes % 13.7 %; Mean Corpuscular HGB Conc 33.7 g/dL (31.6-35.5); Mean Corpuscular Hemoglobin 28.5 pg (28.0-33.3); Mean Corpuscular Volume 84.6 fL (83.0-100.0); Monocytes # 0.8 K/mcL (0.0-1.3); Monocytes % 11.3 %; Platelet Count 379 K/mcL (140-400); Red Blood Count 4.81 M/mcL (3.82-4.97); Red Cell Distribution Width 12.5 % (11.5-14.5); Segmented Neutrophils % 72.1 %
[2018-03-16 17:05] LABS: BUN/Creatinine Ratio 35 (6-26); Blood Urea Nitrogen 30 mg/dL (8-23); Calcium 10.2 mg/dL (8.6-10.3); Carbon Dioxide 23 mEq/L (23-29); Chloride 101 mEq/L (98-107); Glucose 195 mg/dL (70-105); Osmolality,Calculated 292 (280-300); Potassium 3.7 mEq/L (3.5-5.1); Sodium 135 mEq/L (136-145); eGFR For Non-African Americans > 60 (> 60)
[2018-03-16 17:06] LABS: Troponin I < 0.03 ng/mL (< 0.04)
--- NOTE | 2018-03-16 17:32 | Emergency Department Note ---
Disposition Clinical Impression: Dyspnea Qualifiers: Dyspnea type: unspecified Qualified Code(s): R06.00 - Dyspnea, unspecified Disposition: Admitted As Inpatient Referrals: NONE,PCP [Primary Care Provider] - Forms: ED Satisfaction Letter General Adult HPI - General Chief complaint: ED Shortness of Breath/Dyspnea Stated complaint: MERCY, weakness Time Seen by Provider: 03/16/18 15:30 Source: patient, family - History of Present Illness Pain Scale: 0 - Related Data Home Medications Medication Instructions Recorded Confirmed Aspirin [Lo-Dose Aspirin EC] 81 mg PO DAILY 06/09/17 02/09/18 Naproxen Sodium [Aleve] 1 tab PO DAILY 08/19/17 02/09/18 Tiotropium [Spiriva] 18 mcg IH DAILY PRN 08/19/17 02/09/18 Calcium Carbonate [Tums] 1,000 mg PO BID PRN 11/19/17 02/09/18 Previous Rx's Medication Instructions Recorded Albuterol Sulfate [Albuterol 2 puff IH Q6HR PRN #1 hfa.aer.ad 06/19/17 Inhaler] Petrolatum,White [Aloe [place]] 1 appl TP AD #226 oint...g. 10/06/17 LORazepam [Ativan] 0.5 mg PO DAILY 5 Days #5 tablet 10/09/17 Ondansetron [Zofran] 8 mg PO Q8HR PRN #30 tablet 12/14/17 Prochlorperazine Maleate 10 mg PO Q8HR PRN #30 tablet 12/14/17 [Compazine] Docusate Sodium [Colace] 100 mg PO BID PRN #60 capsule 01/06/18 Megestrol Acetate [Megace] 800 mg PO DAILY #400 mls 02/05/18 Allergies Allergy/AdvReac Type Severity Reaction Status Date / Time Penicillins AdvReac Rash Verified 02/05/18 10:51 Sulfa (Sulfonamide AdvReac Rash Verified 02/05/18 10:51 Antibiotics) Past Medical History - Past Medical History Medical history: Reports: other Surgical history: Reports: no surgical history Psychiatric history: Reports: no psych history - Social History Smoking Status: Former smoker Smokeless Tobacco Status: No Alcohol use: Reports: none Drug use: Reports: none Course Vital Signs Temperature 98.1 F 03/16/18 15:24 Pulse Rate 126 03/16/18 15:24 Respiratory Rate 22 03/16/18 15:24 Blood Pressure 134/74 03/16/18 15:24 O2 Sat by Pulse Oximetry 97 03/16/18 15:24 Temperature 98.1 F 03/16/18 15:24 Pulse Rate 102 03/16/18 16:54 Respiratory Rate 22 03/16/18 15:42 Blood Pressure 137/66 03/16/18 16:54 O2 Sat by Pulse Oximetry 96 03/16/18 16:54 Oxygen Delivery Oxygen Delivery Room Air Medical Decision Making - Lab Data Result diagrams: 03/16/18 16:28 03/16/18 16:28 Lab Results 03/16/18 03/16/18 03/16/18 Range/Units 16:28 16:28 16:28 WBC 6.9 (4.3-11.1) K/mcL RBC 4.81 (3.82-4.97) M/mcL Hgb 13.7 (11.5-15.4) g/dL Hct 40.7 (35.3-44.9) % MCV 84.6 (83.0-100.0) fL MCH 28.5 (28.0-33.3) pg MCHC 33.7 (31.6-35.5) g/dL RDW 12.5 (11.5-14.5) % Plt Count 379 (140-400) K/mcL MPV 10.0 (9.4-12.4) fL Immature Gran % 0.9 (0-4) % Seg Neutrophils % 72.1 % Lymphocytes % 13.7 % Monocytes % 11.3 % Eosinophils % 1.4 % Basophils % 0.6 % Neutrophils # 5.0 (1.6-8.9) K/mcL Lymphocytes # 1.0 (0.6-4.6) K/mcL Monocytes # 0.8 (0.0-1.3) K/mcL Eosinophils # 0.1 (0.0-0.6) K/mcL Basophils # 0.0 (0.0-0.2) K/mcL Sodium 135 L (136-145) mEq/L Potassium 3.7 (3.5-5.1) mEq/L Chloride 101 (98-107) mEq/L Carbon Dioxide 23 (23-29) mEq/L BUN 30 H (8-23) mg/dL Creatinine 0.85 (0.60-1.20) mg/dL Est GFR ( Amer) > 60 (> 60) Est GFR (Non-Af Amer) > 60 (> 60) BUN/Creatinine Ratio 35 H (6-26) Glucose 195 H (70-105) mg/dL Calculated Osmolality 292 (280-300) Lactic Acid 2.3 H (0.5-2.2) mmol/L Calcium 10.2 (8.6-10.3) mg/dL Troponin I < 0.03 (< 0.04) ng/mL B-Natriuretic Peptide (Less than 100) pg/mL 03/16/18 Range/Units 16:28 WBC (4.3-11.1) K/mcL RBC (3.82-4.97) M/mcL Hgb (11.5-15.4) g/dL Hct (35.3-44.9) % MCV (83.0-100.0) fL MCH (28.0-33.3) pg MCHC (31.6-35.5) g/dL RDW (11.5-14.5) % Plt Count (140-400) K/mcL MPV (9.4-12.4) fL Immature Gran % (0-4) % Seg Neutrophils % % Lymphocytes % % Monocytes % % Eosinophils % % Basophils % % Neutrophils # (1.6-8.9) K/mcL Lymphocytes # (0.6-4.6) K/mcL Monocytes # (0.0-1.3) K/mcL Eosinophils # (0.0-0.6) K/mcL Basophils # (0.0-0.2) K/mcL Sodium (136-145) mEq/L Potassium (3.5-5.1) mEq/L Chloride (98-107) mEq/L Carbon Dioxide (23-29) mEq/L BUN (8-23) mg/dL Creatinine (0.60-1.20) mg/dL Est GFR ( Amer) (> 60) Est GFR (Non-Af Amer) (> 60) BUN/Creatinine Ratio (6-26) Glucose (70-105) mg/dL Calculated Osmolality (280-300) Lactic Acid (0.5-2.2) mmol/L Calcium (8.6-10.3) mg/dL Troponin I (< 0.04) ng/mL B-Natriuretic Peptide 59 (Less than 100) pg/mL Attestation Statement - Attestation Attestation: I examined this patient and my medical decision-making was reviewed with the Resident Physician. I agree with the documented findings, disposition and treatment plan as described except to the extent set forth below. 82 year old female prsentse ot the ED with compltins of MERCY but not hypoxia and states that she is currenlty being treated for lung cancer with chemo and radiation and follows shante Hopper. Patient has no prvious history of DVT but has been diagnosed with pneumonia in the past. Patiet denies prductive cough or fevers although she does appear dyspneic between sentences. She has had a history of pleural effusion that have required thoracacentesis in the past. CTA and caridopulmoary work and admit to medicnie
[2018-03-16] MEDS ORDERED: 0.9 % Sodium Chloride 1,000 ML IVC ONE (18:17)
[2018-03-16] MEDS ORDERED: Acetaminophen 325 MG TABLET PO PRN (20:25)
[2018-03-16] MEDS ORDERED: *HR* HYDROcodone/Acet 5/325 mg TABLET PO PRN (20:25)
[2018-03-16] MEDS ORDERED: Naloxone 0.4 MG/ML INJ IVP PRN (20:25)
[2018-03-16] MEDS ORDERED: *HR* OxyCODONE Immed Rel 5 MG TABLET PO PRN (20:25)
[2018-03-16] MEDS ORDERED: Ondansetron ODT 4 MG TAB.RAPDIS PO PRN (20:31)
[2018-03-16] MEDS ORDERED: *HR* LORazepam 2 MG/ML VIAL IVP PRN (20:36)
--- NOTE | 2018-03-16 20:36 | Internal Med History&Physical ---
<Sulaiman Lam - Last Filed: 03/16/18 21:37> Date of Encounter: 03/16/18 Internal Medicine - H&P: HPI History of present illness: Ms. Tena is a 82 year old female Internal Medicine - H&P: Meds Aspirin [Lo-Dose Aspirin EC] 81 mg PO DAILY 06/09/17 [History] Naproxen Sodium [Aleve] 1 tab PO DAILY 08/19/17 [History] Calcium Carbonate [Tums] 1,000 mg PO BID PRN 11/19/17 [History] Ondansetron [Zofran] 8 mg PO Q8HR PRN #30 tablet 12/14/17 [Rx] Prochlorperazine Maleate [Compazine] 10 mg PO Q8HR PRN #30 tablet 12/14/17 [Rx] Docusate Sodium [Colace] 100 mg PO BID PRN #60 capsule 01/06/18 [Rx] Megestrol Acetate [Megace] 800 mg PO DAILY #400 mls 02/05/18 [Rx] 3 Allergy/AdvReac Type Severity Reaction Status Date / Time Penicillins AdvReac Rash Verified 02/05/18 10:51 Sulfa (Sulfonamide AdvReac Rash Verified 02/05/18 10:51 Antibiotics) All Systems PM: A 10-system review of systems was performed and is negative for pertinent findings except as documented above in the HPI. - Constitutional Vitals: Temp Pulse Resp BP Pulse Ox 98.2 F 131 14 121/78 97 03/16/18 20:33 03/16/18 20:33 03/16/18 20:33 03/16/18 20:33 03/16/18 20:33 Internal Med - H&P Results - Labs CBC & Chem 7: 03/16/18 16:28 03/16/18 16:28 - Attending Attestation The patient was seen and examined by me. She is an 82-year-old woman undergoing chemotherapy and radiation therapy for metastatic small cell lung cancer who presents with generalized fatigue and weakness poor appetite and failure to thrive. She denies any focal pain, diaphoresis, shortness of breath, diarrhea, nausea or vomiting. Her chief complaint is feeling tired and not eating well. She was saturating adequately on room air without need for supplemental oxygen. Chest CT was reviewed independently by me and compared to her previous which shows signs of fibrosis likely due to radiation with no significant changes from the last image. Last brain CT did not show signs of metastases to the brain however a brain MRI would be in order to assess for this which she has recently refused. His time there are no signs of disorientation or focal abnormalities that warrants an urgent MRI. Physical exam remarkable for an mass seated elderly white woman who appears pale with hyperpigmentation still different areas of her skin, nontender abdomen , reduced breath sounds in both lung renteria, dry mucous membranes. Lab work reviewed are grossly benign except for trace elevation in lactic acid level but currently has no signs of acute infection. We will place her on some IV fluids for dehydration, protein supplements with her meals, observe her overnight and consult palliative care for assistance with her follow-up management. - Time Spent With Patient Total time spent is greater than 50% in coordination of care (as documented) at patient's floor/unit and/or counseling patient: <Aniket Ny - Last Filed: 03/16/18 22:56> Date of Encounter: 03/16/18 Time of Encounter: 20:36 Internal Medicine - H&P: HPI Chief complaint: weakness Admitted From: Emergency Dept Plans for Post Hospital Care: Home History of present illness: Ms. Tena is a 82 year old female with a PMhx of lung cancer with METS to pleura presents to ED with a complaint of weakness x 2-3 weeks. She states that it has been progressive and her oncologist, Dr. Hopper was concerned that she was not eating enough. She states her appetitie has been poor in this time and she does not feel like eating. She has been drinking water she states. She denies symptoms of fevers, chills, recent illness, cough, chest pain, nausea, vomiting , changes in bowel movements, LE swelling. She does state that every once in a while she will experience SOB, mostly on exertion and states that it may be related to anxiety with associated tightness in her chest. She is able to move about her home (where she lives alone) without SOB or weakness and does not use a cane or walker. She is otherwise asymptomatic. She has had a cancer diagnosis since June 2017 and has been undergoing chemo and radiation for 10 weeks, most recently 6 weeks ago. Per Oncology Note, She has stage IV small cell lung cancer with extensive pleural mets and extensive right hilar and sub carinal adenopathy. She received carbo/VP16. In the ED, vitals significant for mild tachycardia at 107. Labs were grossly unremarkable except for lactic acid of 2.3. CTA was performed due to concern of PE but was negative. CT scan did show new irregular ground glass opacities bilaterally which may be from pulmonary radiation fibrosis vs pneumonitis. EKG showed sinus tachycardia with no ST changes or signs of ischemia. PMHx as above PSHx patient denies Social: Former 2PPD smoker, quit in June after diagnosis. Denies alcohol or drug use. Past Med Surg Social Fam HX - Past Medical History Medical history: other Additional medical history: smoker 60+ years, quit last year. Psychiatric history: no psych history - Past Surgical History Surgical History: no surgical history Additional surgical history: PORT- right chest - Social History Smoking Status: Former smoker Smokeless Tobacco Status: No Alcohol use: none Drug use: none - Family History Mother Family Member Ethnicity: Non- Living Status: Hx Family Cardiac Disorders: Yes Father Living Status: Hx Family Cardiac Disorders: Yes Brother Living Status: Hx Family Cardiac Disorders: Yes All Systems PM: A 10-system review of systems was performed and is negative for pertinent findings except as documented above in the HPI. - Constitutional Constitutional: fatigue, weakness, weight loss, no chills, no fever(s), no weight gain - Gastrointestinal Gastrointestinal: constipation, no abdominal pain, no hematochezia, no loose stools, no melena, no nausea, no vomiting - Genitourinary Genitourinary: no dysuria - Integumentary Integumentary IM: new lesions, no rash Additional comments: facial lesions secondary to radiation - Neurological Neurological ROS: weakness, no dizziness, no numbness, no tingling - Constitutional Vitals: Temp Pulse Resp BP Pulse Ox 98.1 F 95 22 138/79 98 03/16/18 15:24 03/16/18 19:00 03/16/18 20:00 03/16/18 20:00 03/16/18 19:00 Exam: Gen.: Vitals noted. No acute distress. Alert and oriented, resting comfortably in bed HEENT: PERRL/EOMI, oropharynx clear, Normocephalic, atraumatic, mildly dry mucous membranes. Red crusting around the lips as well as likely radiation changes to scan of buccal area Cardiac: RRR, no murmur, +S1/S2 Pulmonary: CTA bilaterally, no wheezes, rales or rhonchi, equal chest expansion. Possible very minimal crackles in right lung base Abdomen: soft, nontender, BS noted, no guarding, no rebound. Extremities: no BLE edema, nontender calf, no cyanosis or clubbing Neuro: A&Ox3, moves all extremities, no focal deficits Psych: Appropriate mood and behavior. Possibly depressed Internal Med - H&P Results - Labs CBC & Chem 7: 03/16/18 16:28 03/16/18 16:28 - Assessment and plan (1) Weakness Current Visit: Yes Status: Acute Assessment and plan: - Likely related to cancer diagnosis and decreased oral intake - Patient admits to anxiety, poor intake for 2-3 weeks - Will encourage diet with ensure supplementation - PT/OT consult - Palliative consult - Gentle IV fluid hydration - Supportive care. (2) Lactic acid acidosis Current Visit: Yes Status: Acute Assessment and plan: - Likely related to dehydration - Nonseptic. Tachycardic with no WBC elevation. - Tachycardia improving with fluids - Will trend with AM labs and give fluids. (3) Small cell lung cancer Current Visit: Yes Status: Chronic Assessment and plan: - Chronic Stage IV small cell lung cancer with METS - Last treatment 4 weeks ago - Follows with [facility]. Ho[facility] at [facility]. - Likely related to weakness diagnosis. - Palliative care consulted, appreciate recommendations - Continue treatment as outpatient as she desires. (4) Pneumonitis Current Visit: Yes Status: Suspected Assessment and plan: As demonstrated on CTA for PE rule out - Patient denies symptoms of chest pain of dyspnea on exertion - SOB is more likely related to anxiety in my opinion - Will not give steroids at this time. - Tolerating room air at this time. - Continue to monitor and supplemental O2 as necessary (5) COPD (chronic obstructive pulmonary disease) Current Visit: Yes Status: Chronic Assessment and plan: not in acute exacerbation Qualifiers: COPD type: emphysema Emphysema type: centrilobular Qualified Code(s): J43.2 - Centrilobular emphysema (6) DVT prophylaxis Current Visit: Yes Status: Acute Assessment and plan: heparin 5000 units q12h - Time Spent With Patient Total time spent is greater than 50% in coordination of care (as documented) at patient's floor/unit and/or counseling patient:
[2018-03-16] MEDS ORDERED: 0.9 % Sodium Chloride 1,000 ML IVC SCH (20:45)
[2018-03-16] MEDS ORDERED: Ringers Solution, Lactated 1,000 ML IVC SCH (21:00)
[2018-03-16] MEDS: 0.9 % Sodium Chloride 1,000 ML IVC SCH (22:50)
[2018-03-17] MEDS: *HR* Heparin 5,000 UNIT/ML VIAL SQ SCH ×2 (04:39→17:19)
[2018-03-17 05:00] LABS: Alanine Aminotransferase 9 Units/L (7-52); Albumin 3.2 g/dL (3.5-5.7); Albumin/Globulin Ratio 1.3 (1.1-2.2); Alkaline Phosphatase 77 Units/L (34-104); Aspartate Amino Transferase 14 Units/L (13-39); BUN/Creatinine Ratio 42 (6-26); Bilirubin,Total 0.5 mg/dL (0.3-1.0); Blood Urea Nitrogen 26 mg/dL (8-23); Calcium 8.9 mg/dL (8.6-10.3); Carbon Dioxide 24 mEq/L (23-29); Chloride 107 mEq/L (98-107); Globulin 2.4 g/dL (2.4-3.5); Glucose 107 mg/dL (70-105); Osmolality,Calculated 293 (280-300); Potassium 3.6 mEq/L (3.5-5.1); Sodium 139 mEq/L (136-145); Total Protein 5.6 g/dL (6.4-8.9); eGFR For Non-African Americans > 60 (> 60)
[2018-03-17] MEDS: Aspirin Enteric Coated 81 MG Tablet PO SCH (09:34)
[2018-03-17] MEDS: Megestrol Acetate 400 MG/10 ML UDC PO SCH (09:34)
--- NOTE | 2018-03-17 09:54 | Palliative - Consult Note ---
Date of Encounter: 03/17/18 Time of Encounter: 08:45 - Assessment and Plan (1) Dyspnea Current Visit: No Status: Resolved Assessment and plan: Patient denies dyspnea during assessment. Patient is ordered Roxicodone 10 mg PRN for severe pain. Will order Roxicodone 2.5 mg SL PRN for dyspnea. Qualifiers: Dyspnea type: shortness of breath Qualified Code(s): R06.02 - Shortness of breath; R06.00 - Dyspnea, unspecified; R06.01 - Orthopnea (2) Anxiety Current Visit: No Status: Resolved Assessment and plan: Patient denies anxiety during assessment. Patient has Ativan PRN for anxiety; has taken 1 dose. Continue Ativan PRN as ordered. (3) Small cell lung cancer Current Visit: Yes Status: Chronic Assessment and plan: Current [facility] patient. Plans to continue all cancer treatment that is offered to her by Dr. Hopper. (4) Goals of care, counseling/discussion Current Visit: Yes Status: Acute Assessment and plan: Conducted goals of care discussion with patient. No family present at bedside. Patient expressed desire to remain FULL CODE; patient was able to explain what CPR entailed and verbalized understanding of risks associated with CPR and intubation. Discussed options of DNR CCA versus DNRCCA/DNI versus DNRCC. Discussed plan of care at discharge. Patient lives alone. Has a close neighbor whom checks on her daily. Her daughter comes and visits/calls frequently. Patient desires to return home, reports able to get around home independently without dyspnea. Discussed assistance at home, home health versus hospice. Patient desires to continue cancer treatment; not a candidate for hospice at this time, but is eligible should she decide to stop cancer treatment, verbalized understanding. Discussed assistance that could be provided in home with Home health (nurse, PT/OT); patient expressed desire to have Home health at discharge. Patient undecided in home health company at this time. Patient requested to phone her daughter to discuss plan of care at discharge. Attempted to reach daughter no answer; will continue to contact her. Mk Lal SW notified of discharge plan to return home with Home health (PT/OT). Palliative will continue to follow to assist in establishing goals of care. (5) Weakness Current Visit: Yes Status: Acute Assessment and plan: PT/OT consult in place; recommendations appreciated. Patient desires to have PT/ OT at home via [employer] [facility] at time of discharge. (6) Lack of appetite Current Visit: Yes Status: Acute Assessment and plan: Patient reports continued lack of appetite. Has been ordered Megace outpatient, has only been taking for approximately 1 month. Continue at current dosing. Should no longer be deemed appropriate, may consider transition to Marinol. Palliative-CN HPI - Data of Consult Patient: new to practice Consult date: 03/16/18 Requesting Physician: Oumar Magallanes Primary Care Provider: PCP NONE - Consult Narrative Palliative Care/Comfort Measures: Palliative care Reason for consult: Lung cancer with METS and poor oral intake; goals of care and d/c planning. History of present illness: Ms. Tena is a 82 year old female arrived to [place] ER on 03/16/[address] Hopper's ([facility]) appointment with dyspnea, generalized fatigue/weakness, and lack of appetite. PMH: Stage 4 Lung Cancer (Diagnosis June 2017) with extensive METS to pleural and extensive right hilar and sub carinal adenopathy; smoker times 60 years (Currently non-smoker times 1 year). Patient lives home alone; has neighbor that checks on her daily and daughter that lives more than 1 hours away visits frequently. Denies any additional assistance in the home. Patient admitted and medically managed for Weakness with tachycardia. Patient given 1L fluid given for fluid resuscitation. CTA completed showing new irregular ground glass opacities in the paramediastinal aspects of RUL and RLL. Palliative care consulted for lung cancer with mets and poor oral intake; goals of care and discharge planning. Patient sitting up at bedside upon arrival for assessment. No family present at bedside. Patient is alert and oriented times 3; however, confused to details. Unsure of when follow up appointment for [facility], nor is she sure she is still continuing cancer treatment. Reports "I don't really know what goes on there, my daughter handles my appointments." Patient denies pain, anxiety, shortness of breath/dyspnea, nausea, and vomiting during assessment. Patient reports continued poor appetite; patient does confirm that the Megace is helping. Patient unsure how long she has been fatigued, but aware Dr. Hopper sent her to ER. Patient recommended calling daughter (Lesley Edmond, ). Patient denies having home health at home, but reports would be interested in additional help. CC: Oumar Magallanes Past Med Surg Social Fam HX - Past Medical History Medical history: other Additional medical history: smoker 60+ years, quit last year. Psychiatric history: no psych history - Past Surgical History Surgical History: no surgical history Additional surgical history: PORT- right chest - Social History Smoking Status: Former smoker Smokeless Tobacco Status: No Alcohol use: none Drug use: none - Family History Mother Family Member Ethnicity: Non- Living Status: Hx Family Cardiac Disorders: Yes Hx Family Neuromuscular Disorders: Yes (CVA) Father Living Status: Hx Family Cardiac Disorders: Yes Brother Living Status: Hx Family Cardiac Disorders: Yes Medications and Allergies Aspirin [Lo-Dose Aspirin EC] 81 mg PO DAILY 06/09/17 [History] Naproxen Sodium [Aleve] 1 tab PO DAILY 08/19/17 [History] Calcium Carbonate [Tums] 1,000 mg PO BID PRN 11/19/17 [History] Ondansetron [Zofran] 8 mg PO Q8HR PRN #30 tablet 12/14/17 [Rx] Prochlorperazine Maleate [Compazine] 10 mg PO Q8HR PRN #30 tablet 12/14/17 [Rx] Docusate Sodium [Colace] 100 mg PO BID PRN #60 capsule 01/06/18 [Rx] Megestrol Acetate [Megace] 800 mg PO DAILY #400 mls 02/05/18 [Rx] 3 Allergy/AdvReac Type Severity Reaction Status Date / Time Penicillins AdvReac Rash Verified 02/05/18 10:51 Sulfa (Sulfonamide AdvReac Rash Verified 02/05/18 10:51 Antibiotics) - Constitutional Constitutional ROS PAL: decreased appetite, anorexia, lethargy, malaise, weight loss, no fever(s), no frequent falls - EENT Eyes: no change in vision, no discharge - Cardiovascular Cardiovascular ROS: dyspnea on exertion, no chest pain, no chest pain at rest, no chest pain with activity, no diaphoresis, no edema, no palpitations, no pedal edema - Respiratory Respiratory: dyspnea on exertion, no cough, no dyspnea, no pain on inspiration, no chest congestion, no pain with cough - Gastrointestinal Gastrointestinal: no change in bowel habits, no constipation, no diarrhea, no fecal incontinence, no nausea, no vomiting - Musculoskeletal Musculoskeletal ROS IM: muscle weakness (Generalized weakness.), no back pain, no myalgias, no neck pain - Integumentary ROS Integumentary: dry skin - Neurological Neurological ROS: weakness, no confusion, no memory loss - Psychiatric Psychiatric general PM: anxiety (Reports has chronic anxiety; however, denies feeling anxious during assessment.) Palliative Care-Exam - Constitutional Vitals: Temp Pulse Resp BP Pulse Ox 98.0 F 85 19 116/72 92 03/17/18 07:08 03/17/18 07:08 03/17/18 07:08 03/17/18 07:08 03/17/18 07:08 General appearance: Present: cooperative, no acute distress - Head Head Exam: Present: atraumatic, normal inspection - Expanded Head Exam Head exam expanded IM: Absent: raccoon eyes - Eye Eye exam: Present: EOMI, normal appearance, PERRL, conjuntiva pink. Absent: periorbital swelling, periorbital tenderness Pupils: Present: PERRL - ENT ENT exam: Present: mucous membranes dry, normal external ear exam - Expanded ENT Exam Mouth Exam: Present: dry mucosa. Absent: drooling - Neck Neck exam: Present: full ROM, normal inspection. Absent: tenderness - Respiratory Respiratory exam: Present: CTAB. Absent: accessory muscle use, chest wall tenderness, decreased breath sounds, respiratory distress - Cardiovascular Cardiovascular exam: Present: RRR, +S1, +S2 - Expanded Cardiovascular Exam Peripheral pulses: 2+: Radial (L), Radial (R) - GI/Abdominal Exam GI/Abdominal exam: Present: hyperactive bowel sounds, soft. Absent: tenderness - Rectal Rectal exam: Present: deferred - Extremities Exam Extremities exam: Present: full ROM, normal inspection. Absent: calf tenderness , pedal edema, tenderness - Neurological Exam Neurological exam: Present: alert, oriented X3, strengths equal and symetr throughout, facial droop (to right.) - Expanded Neurological Exam Patient oriented to: Present: person, place, time Cranial nerves: EOM's intact: Normal, nystagmus: Normal Coma Scale Eye Opening: To Voice Coma Scale Motor Response: Obeys Commands Coma Scale Verbal Response: Oriented Coma Scale Total: 14 - Psychiatric Psychiatric exam: Present: normal affect, normal mood - Skin Skin exam: Present: dry, intact, pallor Internal Medicine - CN: Reslt - Labs CBC & Chem 7: 03/16/18 16:28 03/17/18 04:18 Labs: BMP 03/17/18 04:18 Sodium 139 Potassium 3.6 Chloride 107 Carbon Dioxide 24 BUN 26 H Creatinine 0.62 Glucose 107 H Calcium 8.9 Liver Function 03/17/18 Range/Units 04:18 Total Bilirubin 0.5 (0.3-1.0) mg/dL AST 14 (13-39) Units/L ALT 9 (7-52) Units/L Alkaline Phosphatase 77 (34-104) Units/L Albumin 3.2 L (3.5-5.7) g/dL Consult Discharge Plan - Plan Referrals: NONE,PCP [Primary Care Provider] - Palliative Quality Palliative Quality: Screen for Code Status: Yes, Screen for Goals of Care: Yes, Screen for Pain: Yes, If Pain Regimen Started, Initiate Bowel Regimen: Yes ( Already ordered.), Screen for Nausea/Vomitting: Yes Code Status: 03/16/18 20:25 Resuscitation Status: Active [RES] Routine Comment: Resuscitation Status: Full Code
[2018-03-17] MEDS ORDERED: OXYCODONE Oral CONC 10 MG/0.5 ML ORAL.SYG SL PRN (10:11)
[2018-03-17] MEDS: 0.9 % Sodium Chloride 1,000 ML IVC SCH (11:39)
--- NOTE | 2018-03-17 17:25 | Electrocardiograph Report ---
[place] [id number] Test Date: 2018-03-16 Pat Name: Shea Tena Department: Room: 2A Gender: F [employer] Coordinator: : 1935 Requested By: Annie Tinsley Order Number: [id number] Reading MD: Inna Bernstein Measurements Intervals [place] Rate: 113 P: 56 NC: 116 QRS: 82 QRSD: 120 T: 19 QT: 352 QTc: 483 Interpretive Statements Sinus tachycardia Right bundle branch block Electronically Signed On 03-17-2018 17:24:35 EDT by Inna Bernstein
[2018-03-18] MEDS: 0.9 % Sodium Chloride 1,000 ML IVC SCH (00:15)
[2018-03-18] MEDS: *HR* Heparin 5,000 UNIT/ML VIAL SQ SCH (06:12)
[2018-03-18] MEDS: Megestrol Acetate 400 MG/10 ML UDC PO SCH (08:20)
[2018-03-18] MEDS: Aspirin Enteric Coated 81 MG Tablet PO SCH (08:20)
[2018-03-18 10:57] VITALS: BP 109/63
--- NOTE | 2018-03-18 11:21 | Discharge Summary ---
- NOTES TO OUTPATIENT PROVIDER Notes to Outpatient Provider: The patient did not agree for ECF. Date of Encounter: 03/18/18 Time of Encounter: 10:30 - Discharge Diagnosis (1) Weakness Priority: Primary Status: Acute (2) Cachexia Priority: Secondary Status: Chronic (3) Small cell lung cancer Priority: Primary Status: Chronic (4) COPD (chronic obstructive pulmonary disease) Priority: Secondary Status: Chronic Qualifiers: COPD type: emphysema Emphysema type: centrilobular Qualified Code(s): J43.2 - Centrilobular emphysema Hospital course: Ms. Tena is a 82 year old female. We admitted this patient with progressing weakness/cachexia. She has underlying small cell lung cancer; underwent radiation therapy recently. We did not find any evidence for infection. We gave her IV fluids. We gave her Megace. We offered her to ECF; she refused. Her affect is flat. I offered her antidepressant the; she did not agree. CONDITION AT DISCHARGE: Weak but able to ambulate on her own. Takes only small amounts of her food/ fluids. Her pain is under control. Denies difficulty breathing, coughing and wheezing. She has no GI or symptoms. Skin: Free of rash and discoloration. Respiratory: Normal breath sounds with no crackles and wheezes bilaterally. GI: Abdomen is flat and soft with no palpable mass or visceromegaly. Neuro exam: There is no focal deficits. Normal speech, swallowing and gait. SEE DISCHARGE ORDERS/MEDICATIONS.. - Time Spent with Patient Total time spent providing and/or coordinating discharge services: Greater than 30 minutes (40 minutes) - Discharge Medications Home Medications: Aspirin [Lo-Dose Aspirin EC] 81 mg PO DAILY 06/09/17 [History] Naproxen Sodium [Aleve] 1 tab PO DAILY 08/19/17 [History] Calcium Carbonate [Tums] 1,000 mg PO BID PRN 11/19/17 [History] Ondansetron [Zofran] 8 mg PO Q8HR PRN #30 tablet 12/14/17 [Rx] Prochlorperazine Maleate [Compazine] 10 mg PO Q8HR PRN #30 tablet 12/14/17 [Rx] Docusate Sodium [Colace] 100 mg PO BID PRN #60 capsule 01/06/18 [Rx] Megestrol Acetate [Megace] 800 mg PO DAILY #400 mls 02/05/18 [Rx] Acetaminophen [Tylenol] 650 mg PO Q6HR PRN tablet 03/18/18 [Rx] Allergies/Adverse Reactions: 3 Allergy/AdvReac Type Severity Reaction Status Date / Time Penicillins AdvReac Rash Verified 02/05/18 10:51 Sulfa (Sulfonamide AdvReac Rash Verified 02/05/18 10:51 Antibiotics) Date of admission: 03/16/18 18:57 Primary care physician: PCP NONE Consults: 03/16/18 20:30 Consult to Occupational Therapy [CONS] Routine Comment: Evaluate, develop and implement POC Reason for Consult: weakness Does patient have active BEDREST order?: No Is patient medically & hemodynamically stable?: Yes Patient assessed for mobility or mobilized this visit?: No Consult to Physical Therapy [CONS] Routine Comment: Evaluate, develop and implement POC Reason for Consult: weakness Does patient have active BEDREST order?: No Is patient medically & hemodynamically stable?: Yes Patient assessed for mobility or mobilized this visit?: No Consult to [place] [CONS] Routine Reason for SW Consult: discharge planning. 03/16/18 20:34 Consult to Palliative Care [CONS] Routine Comment: Consulting Provider: Palliative Care Trisha Reason for Consult: lung cancer with mets to brain, poor oral intake Call Completed: No 03/16/18 20:48 Consult to Nutrition [CONS] Routine Comment: Consulting Provider: NUTRITION Reason for Dietary Consult: MST Score Discharging clinician: Oumar Magallanes Anticipated date of discharge: 03/18/18 - Constitutional Vitals: Temp Pulse Resp BP Pulse Ox 99.5 F 86 16 109/63 97 03/18/18 10:54 03/18/18 10:54 03/18/18 10:54 03/18/18 10:54 03/18/18 10:54 General appearance: Present: A&O X 3, no acute distress - Patient Status Disposition: Home, Self-Care Condition: Fair Functional capacity at discharge: independent ambulation Overall status at discharge: patient is back to baseline - Discharge Instructions Follow Up With: Codey Osorio [Resident] - 03/23/18 3:00 pm (hospital follow up and establish new pt. Needs to have HH setup with Trisha GARCIA) NONE,PCP [Primary Care Provider] - - Diet and Activity Activity: resume usual activities as tolerated Diet: advance to your usual diet - VTE Reasons for not Prescribing Prophylaxis: Treatment not Indicated - Low risk for VTE Deep Vein Thrombosis/Pulmonary Embolism Present on Admission: No
--- NOTE | 2018-03-18 23:00 | Internal Med Progress Note ---
Hospitalist Progress Note - Encounter Date of Encounter: 03/17/18 Time of Encounter: 19:00 - Exam Vitals: Temp Pulse Resp BP Pulse Ox 99.5 F 86 16 109/63 97 03/18/18 10:54 03/18/18 10:54 03/18/18 10:54 03/18/18 10:54 03/18/18 10:54 Exam: xxx - Assessment and Plan (1) Weakness Status: Acute (2) Cachexia Status: Chronic (3) Small cell lung cancer Status: Chronic (4) COPD (chronic obstructive pulmonary disease) Status: Chronic DVT Prophylaxis: low risk.. - Summary of Assessment and Plan Summary of Assessment and Plan: SUBJECTIVE: The patient speaks very little. She complains of weakness. She is able to walk on her own. She gets when necessary oxycodone to control pain in the chest /back. Her cough is very mild; without wheezing. Denies abdominal pain, nausea and vomiting. She has very poor appetite. She makes good amounts of urine. OBJECTIVE: Skin: Free of rash and discoloration. ENMT: Oral/pharyngeal mucosa is normal in appearance. Eyes: Sclera is white. There is no discharge from eyes. Respiratory: Normal breath sounds; no crackles or wheezes. CV: Heart is regular; no gallop or murmur. GI: Abdomen is soft and not tender. There is no palpable mass or visceromegaly. Neuro: There is no focal deficits. ASSESSMENT AND PLAN: The patient was admitted with weakness. We did not find any evidence for infection. 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 She has COPD. She is on Megace. She gets when necessary oxycodone. She gets IV fluids. DISPOSITION: I suggested to to the patient that she should be going home tomorrow. - Time Spent with Patient Total time spent is greater than 50% in coordination of care (as documented) at patient's floor/unit and/or counseling patient: 25 - 35 minutes Internal Medicine: Result - Labs CBC & Chem 7: 03/16/18 16:28 03/17/18 04:18 - VTE Reasons for not Prescribing Prophylaxis: Treatment not Indicated - Low risk for VTE Deep Vein Thrombosis/Pulmonary Embolism Present on Admission: No Consult Discharge Plan - Plan Referrals: Codey Osorio [Resident] - 03/23/18 3:00 pm (hospital follow up and establish new pt. Needs to have HH setup with [facility]) NONE,PCP [Primary Care Provider] - (4) COPD (chronic obstructive pulmonary disease) Qualifiers: COPD type: emphysema Emphysema type: centrilobular Qualified Code(s): J43.2 - Centrilobular emphysema
== END 2018-03-18 17:31 | disposition home or self-care (01) ==
LOC: 2ANU 15:18 → EMEROOARM 15:18 → SUATTDRO 18:57 → 2ANU 20:10
PROVIDERS: ADMIT Internal Medicine; ATTEND Internal Medicine

== ENCOUNTER 2018-03-26 11:59 | Inpatient (IN) ==
[2018-03-26] MEDS ORDERED: 0.9 % Sodium Chloride 1,000 ML IVC ONE ×2 (12:17→18:00)
[2018-03-26 13:15] LABS: Basophils # 0.1 K/mcL (0.0-0.2); Eosinophils # 0.2 K/mcL (0.0-0.6); Eosinophils % 2.9 %; Hematocrit 38.2 % (35.3-44.9); Hemoglobin 12.5 g/dL (11.5-15.4); Immature Granulocytes % 0.5 % (0-4); Lymphocytes # 1.2 K/mcL (0.6-4.6); Lymphocytes % 18.3 %; Mean Corpuscular HGB Conc 32.7 g/dL (31.6-35.5); Mean Corpuscular Hemoglobin 28.8 pg (28.0-33.3); Mean Platelet Volume 9.6 fL (9.4-12.4); Monocytes # 0.8 K/mcL (0.0-1.3); Monocytes % 12.1 %; Neutrophils # 4.1 K/mcL (1.6-8.9); Platelet Count 271 K/mcL (140-400); Red Blood Count 4.34 M/mcL (3.82-4.97); Red Cell Distribution Width 13.5 % (11.5-14.5); Segmented Neutrophils % 65.2 %
[2018-03-26 14:16] LABS: Magnesium 2.3 mg/dL (1.6-2.6)
--- NOTE | 2018-03-26 17:02 | Electrocardiograph Report ---
[place] [facility] Test Date: 2018-03-26 Pat Name: Shea Tena Department: [id number] Room: Gender: F Performance Architect: : [id number] Requested By: [id number] Order Number: [id number] Reading MD: Cornel Wang Measurements Intervals [place] Rate: 92 P: 110 VT: 123 QRS: 94 QRSD: 121 T: 169 QT: 387 QTc: 479 Interpretive Statements Sinus rhythm IVCD, consider atypical RBBB Abnormal T, consider ischemia, lateral leads Right and left arm leads reversed please repeat ECG Electronically Signed On 03-26-2018 17:00:38 EDT by Cornel Wang
[2018-03-26 17:18] LABS: Alanine Aminotransferase 9 Units/L (7-52); Albumin 3.7 g/dL (3.5-5.7); Albumin/Globulin Ratio 1.3 (1.1-2.2); Alkaline Phosphatase 84 Units/L (34-104); Aspartate Amino Transferase 16 Units/L (13-39); BUN/Creatinine Ratio 27 (6-26); Bilirubin,Total 0.7 mg/dL (0.3-1.0); Blood Urea Nitrogen 20 mg/dL (8-23); Calcium 9.6 mg/dL (8.6-10.3); Carbon Dioxide 20 mEq/L (23-29); Chloride 104 mEq/L (98-107); Globulin 2.9 g/dL (2.4-3.5); Glucose 97 mg/dL (70-105); Osmolality,Calculated 289 (280-300); Potassium 3.9 mEq/L (3.5-5.1); Sodium 138 mEq/L (136-145); Total Protein 6.6 g/dL (6.4-8.9); Troponin I < 0.03 ng/mL (< 0.04); eGFR For Non-African Americans > 60 (> 60)
--- NOTE | 2018-03-26 17:58 | Emergency Department Note ---
Disposition Clinical Impression: Weakness, Near syncope Disposition: Admitted As Inpatient Condition: Good Referrals: NONE,PCP [Primary Care Provider] - General Adult HPI - General Chief complaint: ED Syncope Stated complaint: weakness Time Seen by Provider: 03/26/18 12:07 Source: EMS Limitations: no limitations Nursing Notes Reviewed: Yes Vital Signs Reviewed: Yes - History of Present Illness HPI Narrative: Patient presents emergency department for evaluation of dizziness and near syncope. She states that she woke up this morning and was unable to get out of bed secondary to feeling dizzy. Duncan like she was going to pass out. Patient had recent admission for cachexia as well as weakness. Small cell lung cancer. Patient has finished all chemotherapy and radiation. Patient was offered extended care facility but refused. She states that she is unable to go home at this time. Pain Scale: 0 - Related Data Home Medications Medication Instructions Recorded Confirmed Aspirin [Lo-Dose Aspirin EC] 81 mg PO DAILY 06/09/17 03/16/18 Naproxen Sodium [Aleve] 1 tab PO DAILY 08/19/17 03/16/18 Calcium Carbonate [Tums] 1,000 mg PO BID PRN 11/19/17 03/16/18 Previous Rx's Medication Instructions Recorded Ondansetron [Zofran] 8 mg PO Q8HR PRN #30 tablet 12/14/17 Prochlorperazine Maleate 10 mg PO Q8HR PRN #30 tablet 12/14/17 [Compazine] Docusate Sodium [Colace] 100 mg PO BID PRN #60 capsule 01/06/18 Megestrol Acetate [Megace] 800 mg PO DAILY #400 mls 02/05/18 Acetaminophen [Tylenol] 650 mg PO Q6HR PRN tablet 03/18/18 Allergies Allergy/AdvReac Type Severity Reaction Status Date / Time Penicillins AdvReac Rash Verified 03/26/18 12:16 Sulfa (Sulfonamide AdvReac Rash Verified 03/26/18 12:16 Antibiotics) Review of Systems: CONSTITUTIONAL: Generalized weakness and fatigue HEENT: Eyes: No visual changes. Ears, Nose, Throat: No hearing loss, difficulty talking or unable to swallow. SKIN: No rash or itching. CARDIOVASCULAR: No chest pain, chest pressure or chest discomfort. No palpitations or edema. RESPIRATORY: No shortness of breath, cough or sputum. GASTROINTESTINAL: No anorexia, nausea, vomiting or diarrhea. No abdominal pain or blood. GENITOURINARY: No burning on urination or hematuria. NEUROLOGICAL: No headache, dizziness, syncope, paralysis, ataxia, numbness or tingling in the extremities. No change in bowel or bladder control. MUSCULOSKELETAL: No muscle pain, back pain, joint pain or stiffness. Past Medical History - Past Medical History Medical history: Reports: cancer, other Surgical history: Reports: no surgical history Psychiatric history: Reports: no psych history - Social History Smoking Status: Former smoker Smokeless Tobacco Status: No Alcohol use: Reports: none Drug use: Reports: none Physical Exam General: Well appearing, nontoxic, no acute distress Head: Normocephalic Atraumatic Eyes: PERRL, EOMI ENT: Airway patent, no stridor Neck: supple, no meningismus Chest: Lungs clear to auscultation bilateral Cardiac: Regular rate and rhythm, no murmurs, rubs or gallops Abdomen: soft, nontender, nondistended; no guarding, rebound, or tenderness to percussion Musculoskeletal: Calves symmetric, nontender, no pitting edema Skin: No rash, normal skin tone Neuro: Alert and Oriented to person, place, and time; No focal deficit, - General Limitations: no limitations General appearance: alert, in no apparent distress Course - Reevaluation(s) Reevaluation #1: Patient has had a prolonged stay in the emergency department she has not been willing to P4 S as well as the complications with her blood work. Patient has remained stable in the emergency permit. - Consultations Consultation #1: Discussed with hospitalist. Patient accepted for admission. Vital Signs Temperature 97.6 F 03/26/18 12:03 Pulse Rate 90 03/26/18 12:03 Respiratory Rate 16 03/26/18 12:03 Blood Pressure 140/74 03/26/18 12:03 O2 Sat by Pulse Oximetry 98 03/26/18 12:03 Temperature 97.6 F 03/26/18 12:03 Pulse Rate 94 03/26/18 18:39 Respiratory Rate 16 03/26/18 18:39 Blood Pressure 132/117 03/26/18 18:39 O2 Sat by Pulse Oximetry 100 03/26/18 18:39 Oxygen Delivery Oxygen Delivery Room Air Medical Decision Making - Lab Data Result diagrams: 03/26/18 12:46 03/26/18 12:46 Lab Results 03/26/18 03/26/18 03/26/18 Range/Units 12:46 12:46 18:16 WBC 6.3 (4.3-11.1) K/mcL RBC 4.34 (3.82-4.97) M/mcL Hgb 12.5 (11.5-15.4) g/dL Hct 38.2 (35.3-44.9) % MCV 88.0 (83.0-100.0) fL MCH 28.8 (28.0-33.3) pg MCHC 32.7 (31.6-35.5) g/dL RDW 13.5 (11.5-14.5) % Plt Count 271 (140-400) K/mcL MPV 9.6 (9.4-12.4) fL Immature Gran % 0.5 (0-4) % Seg Neutrophils % 65.2 % Lymphocytes % 18.3 % Monocytes % 12.1 % Eosinophils % 2.9 % Basophils % 1.0 % Neutrophils # 4.1 (1.6-8.9) K/mcL Lymphocytes # 1.2 (0.6-4.6) K/mcL Monocytes # 0.8 (0.0-1.3) K/mcL Eosinophils # 0.2 (0.0-0.6) K/mcL Basophils # 0.1 (0.0-0.2) K/mcL Sodium 138 (136-145) mEq/L Potassium 3.9 (3.5-5.1) mEq/L Chloride 104 (98-107) mEq/L Carbon Dioxide 20 L (23-29) mEq/L BUN 20 (8-23) mg/dL Creatinine 0.73 (0.60-1.20) mg/dL Est GFR ( Amer) > 60 (> 60) Est GFR (Non-Af Amer) > 60 (> 60) BUN/Creatinine Ratio 27 H (6-26) Glucose 97 (70-105) mg/dL Calculated Osmolality 289 (280-300) Calcium 9.6 (8.6-10.3) mg/dL Magnesium 2.3 (1.6-2.6) mg/dL Total Bilirubin 0.7 (0.3-1.0) mg/dL AST 16 (13-39) Units/L ALT 9 (7-52) Units/L Alkaline Phosphatase 84 (34-104) Units/L Troponin I < 0.03 (< 0.04) ng/mL Serum Total Protein 6.6 (6.4-8.9) g/dL Albumin 3.7 (3.5-5.7) g/dL Globulin 2.9 (2.4-3.5) g/dL Albumin/Globulin Ratio 1.3 (1.1-2.2) Urine Color Dark Yellow (Yellow) Urine Clarity Cloudy A (Clear) Urine pH 5.5 (5.0-8.0) pH Units Ur Specific [place] 1.028 H (1.010-1.025) Urine Protein 30 H (Neg-Trace) mg/dL Urine Glucose (UA) Normal (Normal) mg/dL Urine Ketones 80 H (Negative) mg/dL Urine Blood Negative (Negative) Urine Nitrite Negative (Negative) Urine Bilirubin Small H (Negative) Urine Urobilinogen Normal (Normal) mg/dL Ur Leukocyte Esterase Moderate H (Negative)
[2018-03-26 18:31] LABS: Bilirubin,Urine Small (Negative); Blood,Urine Negative (Negative); Clarity,Urine Cloudy (Clear); Color,Urine Dark Yellow (Yellow); Glucose,Urine (UA) Normal (Normal); Ketones,Urine 80 mg/dL (Negative); Leukocyte Esterase,Urine Moderate (Negative); Nitrite,Urine Negative (Negative); PH,Urine 5.5 pH Units (5.0-8.0); Protein,Urine 30 mg/dL (Neg-Trace); Specific Gravity,Urine 1.028 (1.010-1.025); Urobilinogen,Urine Normal (Normal)
[2018-03-26 18:33] LABS: Bacteria,Urine None Seen per hpf (None-Few); Hyaline Casts,Urine Moderate per lpf (None-Few); RBC,Urine 0-3 per hpf (0-3); Squamous Epithelial Cell,Urine Many per lpf (None-Few); WBC,Urine 50-100 per hpf (0-3)
[2018-03-26 18:56] LABS: Calcium Oxalate Crystals,Urine Present
[2018-03-26] MEDS ORDERED: Naloxone 0.4 MG/ML INJ IVP PRN (21:29)
[2018-03-26] MEDS ORDERED: Acetaminophen 325 MG TABLET PO PRN ×2 (21:29→22:17)
[2018-03-26] MEDS: traZODone 50 MG TABLET PO PRN (23:38)
[2018-03-27 04:14] LABS: Hematocrit 32.7 % (35.3-44.9); Mean Corpuscular Hemoglobin 29.3 pg (28.0-33.3); Mean Corpuscular Volume 88.6 fL (83.0-100.0); Mean Platelet Volume 9.8 fL (9.4-12.4); Platelet Count 236 K/mcL (140-400); Red Blood Count 3.69 M/mcL (3.82-4.97); Red Cell Distribution Width 13.5 % (11.5-14.5)
[2018-03-27 04:17] LABS: Hemoglobin 10.8 g/dL (11.5-15.4)
[2018-03-27 04:36] LABS: Alanine Aminotransferase 8 Units/L (7-52); Albumin 3.2 g/dL (3.5-5.7); Albumin/Globulin Ratio 1.3 (1.1-2.2); Alkaline Phosphatase 71 Units/L (34-104); Aspartate Amino Transferase 12 Units/L (13-39); BUN/Creatinine Ratio 23 (6-26); Bilirubin,Total 0.6 mg/dL (0.3-1.0); Blood Urea Nitrogen 14 mg/dL (8-23); Calcium 8.7 mg/dL (8.6-10.3); Carbon Dioxide 22 mEq/L (23-29); Chloride 109 mEq/L (98-107); Globulin 2.4 g/dL (2.4-3.5); Glucose 94 mg/dL (70-105); Osmolality,Calculated 290 (280-300); Phosphorous 2.5 mg/dL (2.7-4.5); Potassium 3.5 mEq/L (3.5-5.1); Sodium 140 mEq/L (136-145); Total Protein 5.6 g/dL (6.4-8.9); eGFR For Non-African Americans > 60 (> 60)
[2018-03-27] MEDS: 0.9 % Sodium Chloride 1,000 ML IVC SCH ×2 (04:37→16:06)
--- NOTE | 2018-03-27 05:11 | Internal Med History&Physical ---
Date of Encounter: 03/27/18 Time of Encounter: 23:00 Internal Medicine - H&P: HPI Chief complaint: Near Syncope History of present illness: Ms. Tena is a 82 year old female with past medical history significant for small cell cancer of the lung status post chemotherapy and radiation who presents to the ED due to dizziness and near syncope. Patient states that yesterday while getting out of bed she felt dizzy and nearly passed out. However, patient denies any loss of consciousness and reports that her friend came to her aid before she fell. She reports that this was a second episode and that previously one week prior she believes that she did have a syncopal episode during which she was preparing some ice water and the next thing she knew she was on the floor. Patient however could not definitively say that she lost consciousness. Patient denies any nausea, vomiting, palpitations chest pain, shortness of breath or diarrhea. Patient states that she is drinking all the time but denies any dysuria or increased frequency. Past Med Surg Social Fam HX - Past Medical History Medical history: cancer, other Additional medical history: smoker 60+ years, quit last year. Psychiatric history: no psych history - Past Surgical History Surgical History: no surgical history Additional surgical history: PORT- right chest - Social History Smoking Status: Former smoker Smokeless Tobacco Status: No Alcohol use: none Drug use: none - Family History Mother Name: Christi Nickerson Family Member Ethnicity: Non- Living Status: Age at : 70 Cause of : [place] Hx Family Cardiac Disorders: Yes Hx Family Neuromuscular Disorders: Yes (CVA) Father Name: Neymar Allan Living Status: Age at : 70 Cause of : [place] Hx Family Cardiac Disorders: Yes Brother Living Status: Hx Family Cardiac Disorders: Yes Internal Medicine - H&P: Meds Aspirin [Lo-Dose Aspirin EC] 81 mg PO DAILY 06/09/17 [History] Calcium Carbonate [Tums] 1,000 mg PO BID PRN 11/19/17 [History] Megestrol Acetate [Megace] 800 mg PO DAILY #400 mls 02/05/18 [Rx] Acetaminophen [Tylenol] 650 mg PO Q6HR PRN tablet 03/18/18 [Rx] Mirtazapine [Remeron] 15 mg PO HS 03/26/18 [History] 3 Allergy/AdvReac Type Severity Reaction Status Date / Time Penicillins AdvReac Rash Verified 03/26/18 12:16 Sulfa (Sulfonamide AdvReac Rash Verified 03/26/18 12:16 Antibiotics) All Systems PM: A 10-system review of systems was performed and is negative for pertinent findings except as documented above in the HPI. - Constitutional Constitutional: no chills, no fever(s), no night sweats - EENT Eyes: no change in vision, no discharge, no pain, no photophobia Ears: no ear discharge, no ear pain, no tinnitus Nose, mouth and throat: no dysphagia, no nasal discharge, no neck pain, no sore throat - Cardiovascular Cardiovascular ROS IM: no chest pain, no diaphoresis, no dyspnea, no lightheadedness, no palpitations, no syncope - Respiratory Respiratory: no cough, no dyspnea, no wheezing, no excessive phlegm production - Gastrointestinal Gastrointestinal: no abdominal pain, no diarrhea, no hematemesis, no hematochezia, no melena, no nausea, no vomiting - Genitourinary Genitourinary: no change in urinary stream, no dysuria, no flank pain, no hematuria - Musculoskeletal Musculoskeletal ROS IM: no numbness, no tingling - Integumentary Integumentary IM: no rash, no unusual bruising - Neurological Neurological ROS: no confusion, no convulsions, no focal weakness, no numbness, no tingling, no tremor(s) - Hematologic/Lymphatic Hematologic/Lymphatic: no easy bruising - Constitutional Vitals: Temp Pulse Resp BP Pulse Ox 99.1 F 72 15 164/82 94 03/27/18 03:38 03/27/18 03:38 03/27/18 03:38 03/27/18 03:38 03/27/18 03:38 Exam: General: Alert and oriented 2-3. She is cachectic appearing Skin:Normal color, no rash, no lesions. HEENT:EOM, pupils equal, round and reactive. Cardiovascular:Normal S1 & S2, no rubs, murmurs or gallops. No JVD. Pulse regular. Lungs:Normal breath sounds, no wheezes or crackles. Abdomen:Soft, non-tender, no rigidity. Extremities:No deformity, no edema or tenderness, no joint swelling or clubbing. Neurological:Normal cognition and motor skills. Pulses:Carotid and radial pulses normal +2. Rest of the physical exam is non contributory Internal Med - H&P Results - Labs CBC & Chem 7: 03/27/18 03:50 03/27/18 03:50 Labs: Short CBC 03/27/18 Range/Units 03:50 WBC 5.1 (4.3-11.1) K/mcL Hgb 10.8 L D (11.5-15.4) g/dL Hct 32.7 L (35.3-44.9) % Plt Count 236 (140-400) K/mcL BMP 03/27/18 03:50 Sodium 140 Potassium 3.5 Chloride 109 H Carbon Dioxide 22 L BUN 14 Creatinine 0.60 Glucose 94 Calcium 8.7 Liver Function 03/27/18 Range/Units 03:50 Total Bilirubin 0.6 (0.3-1.0) mg/dL AST 12 L (13-39) Units/L ALT 8 (7-52) Units/L Alkaline Phosphatase 71 (34-104) Units/L Albumin 3.2 L (3.5-5.7) g/dL - Assessment and plan (1) Near syncope Current Visit: Yes Status: Acute Assessment and plan: Near syncope with possible syncopal episode and a cachectic 82-year-old female with history of small cell cancer. No significant changes on EKG were noted. Will check orthostatics, started on IV fluids, monitor on telemetry. Obtain echo and carotid ultrasound in the morning. Patient did not endorse any dysuria or frequency per se however her urinalysis is possibly suggestive of cystitis. We will send for urine culture. (2) Small cell lung cancer Current Visit: No Status: Chronic Assessment and plan: Palliative care appears to be on board. Would recommend touching base with them if they are not aware for for aid with supportive care. (3) Weakness Current Visit: Yes Status: Acute Assessment and plan: Likely failure to thrive in the setting of small cell cancer status post chemoradiation. Encourage by PO. Appreciate recommendations from possible palliative care follow-up - Time Spent With Patient Total time spent is greater than 50% in coordination of care (as documented) at patient's floor/unit and/or counseling patient:
[2018-03-27] MEDS: Megestrol Acetate 400 MG/10 ML UDC PO SCH (08:09)
[2018-03-27] MEDS: Aspirin Enteric Coated 81 MG Tablet PO SCH (08:09)
--- NOTE | 2018-03-27 08:21 | Internal Med Progress Note ---
Hospitalist Progress Note - Encounter Date of Encounter: 03/27/18 Time of Encounter: 08:18 - Subjective Interval History: Seen at bedside today, weak, frail and ill-appearing. Continuing to endorse dizziness which worsens with change of position as well as weakness. He was recently admitted for anorexia and cachexia secondary to poor appetite following chemotherapy and radiation. She reports that her appetite has improved and her weight has been steady since her increase dose of Megace. Discussed plan of care, patient verbalizes understanding and denies any further questions. - Exam Vitals: Temp Pulse Resp BP Pulse Ox 99.5 F 80 16 140/84 98 03/27/18 07:34 03/27/18 07:34 03/27/18 07:34 03/27/18 07:34 03/27/18 07:34 Exam: General: Alert and oriented 2-3. She is cachectic appearing Skin:Normal color, no rash, no lesions. HEENT:EOM, pupils equal, round and reactive. Cardiovascular: RRR S1 & S2, no rubs, murmurs or gallops. Lungs:Normal breath sounds, no wheezes or crackles. Abdomen:Soft, non-tender, no rigidity. Extremities:No deformity, no edema or tenderness, no joint swelling or clubbing. Neurological:Normal cognition and motor skills. Pulses:Carotid and radial pulses normal +2. Rest of the physical exam is non contributory - Assessment and Plan (1) Near syncope Current Visit: Yes Status: Acute (2) UTI (urinary tract infection) Current Visit: Yes Status: Acute (3) Small cell lung cancer Current Visit: No Status: Chronic Assessment and Plan: Follows with [facility], Palliative care has seen on past visits. See note (4) Weakness Current Visit: Yes Status: Acute Assessment and Plan: see summary of A&P DVT Prophylaxis: lovenox and SCD's - Summary of Assessment and Plan Summary of Assessment and Plan: Patient reports feeling extremely dizzy yesterday and near syncope Orthostatic vitals negative, per my reviewof significant changes on EKG, cardio biomarkers negative Per my assessment this morning continued to report weakness, fatigue and dizziness which worsens with position change Failure to thrive in the setting of small cell lung cancer status post chemoradiation TTE and carotid imaging ordered and pending completion During workup urinalysis revealed cloudy urine with moderate leukocyte esterase and pyuria Given her history of immunocompromise and suspicious urinalysis I suspect possible UTI and will treat as such with IV Levaquin During her stay I will consult PT/OT for further evaluation and to prevent further decline office services clerk consult for discharge planning Dietitian consult for nutritional supplementation I have discussed with the patient as to whether to order a palliative care consult and she has declined at this time - Time Spent with Patient Total time spent is greater than 50% in coordination of care (as documented) at patient's floor/unit and/or counseling patient: less than 15 minutes Plan of Care Discussed with: patient Internal Medicine: Result - Labs CBC & Chem 7: 03/27/18 03:50 03/27/18 03:50 Labs: Short CBC 03/27/18 Range/Units 03:50 WBC 5.1 (4.3-11.1) K/mcL Hgb 10.8 L D (11.5-15.4) g/dL Hct 32.7 L (35.3-44.9) % Plt Count 236 (140-400) K/mcL BMP 03/27/18 03:50 Sodium 140 Potassium 3.5 Chloride 109 H Carbon Dioxide 22 L BUN 14 Creatinine 0.60 Glucose 94 Calcium 8.7 Liver Function 03/27/18 Range/Units 03:50 Total Bilirubin 0.6 (0.3-1.0) mg/dL AST 12 L (13-39) Units/L ALT 8 (7-52) Units/L Alkaline Phosphatase 71 (34-104) Units/L Albumin 3.2 L (3.5-5.7) g/dL Consult Discharge Plan - Plan (2) UTI (urinary tract infection) Qualifiers: Urinary tract infection type: acute cystitis Hematuria presence: without hematuria Qualified Code(s): N30.00 - Acute cystitis without hematuria
[2018-03-27] MEDS: *HR* Enoxaparin 40 MG/0.4 ML SYRINGE SQ SCH (10:37)
[2018-03-27] MEDS: Levofloxacin 500 MG/100 ML 500 MG/100 ML BAG IVPB SCH (10:38)
--- NOTE | 2018-03-27 11:21 | Cardiology Consult Note ---
<Paulette Jones - Last Filed: 03/27/18 11:33> Date of Encounter: 03/27/18 Time of Encounter: 10:30 Assessment and Plan (1) Near syncope Current Visit: Yes Status: Acute Per cardiology: -Reported near syncopal event while getting out of bed. -Denies loss of consciouness, bowel, or bladder. -Denies cuirrent dizziness. -Orthostatic vital signs negative. -Echo and carotid pending. -ECG with no acute changes noted. -No significant events noted on telemetry. -Suspect vasovagal episode. Suspect dizziness multi-factoral also with chemo ( carbo-known to have side effect of weakness), dehydration, cachexia. Educated to change positions slowly and stay well hydrated. Encouraged to eat healthy, balanced meals as tolerated. -IF no significant findings on TTE, cardiology will sign off. (2) Small cell lung cancer Current Visit: No Status: Chronic Per cardiology: -Known lung ca. -Currently undergoing chemo and radiation. -Management per primary service. Discussion w patient/family: The assessment and plan as outlined above was discussed with the patient who expressed understanding and agreement. All questions were answered. Thank you for involving us in the care of your patient. Please call with any questions. Discussed and reviewed with . History of Present Illness Consult date: 03/26/18 Requesting physician: Travis Nolen Consult reason: near syncope Chief complaint: near syncope History of present illness: Ms. Tena is a 82 year old female with a relevant past medical history of small cell lung cancer currently undergoing chemo and radiation, failure to thrive, depression who presented to [facility] with complaints of dizziness, ligthheadedness. Patient reported symtpoms as she was getting out of bed. Denies loss of consciousness. Denies vision changes. Denies loss of bowel or bladder. Denies chest pain, increased shortness of rbeath. Patient reports not eating and drinking well. Past Med Surg Social Fam HX - Past Medical History Attestation: Yes The following information was validated with the patient. Source: patient, old records reviewed Medical history: cancer, other Additional medical history: smoker 60+ years, quit last year. Psychiatric history: no psych history - Past Surgical History Surgical History: no surgical history Additional surgical history: PORT- right chest - Social History Smoking Status: Former smoker Smokeless Tobacco Status: No Alcohol use: none Drug use: none - Family History Mother Name: Chrsiti Nickerson Family Member Ethnicity: Non- Living Status: Age at : 70 Cause of : [place] Hx Family Cardiac Disorders: Yes Hx Family Neuromuscular Disorders: Yes (CVA) Father Name: Neymar Allan Living Status: Age at : 70 Cause of : [place] Hx Family Cardiac Disorders: Yes Brother Living Status: Hx Family Cardiac Disorders: Yes Medications and Allergies Aspirin [Lo-Dose Aspirin EC] 81 mg PO DAILY 06/09/17 [History] Calcium Carbonate [Tums] 1,000 mg PO BID PRN 11/19/17 [History] Megestrol Acetate [Megace] 800 mg PO DAILY #400 mls 02/05/18 [Rx] Acetaminophen [Tylenol] 650 mg PO Q6HR PRN tablet 03/18/18 [Rx] Mirtazapine [Remeron] 15 mg PO HS 03/26/18 [History] 3 Allergy/AdvReac Type Severity Reaction Status Date / Time Penicillins AdvReac Rash Verified 03/26/18 12:16 Sulfa (Sulfonamide AdvReac Rash Verified 03/26/18 12:16 Antibiotics) All Systems Review: The remainder of the systems were reviewed and are negative - Constitutional Constitutional: weakness - Cardiovascular Cardiovascular: as per HPI, lightheadedness - Neurological Neurological: dizziness Physical Examination Vital Signs, Last 4 Hours Temp Pulse Resp BP BP BP BP 03/27/18 08:10 03/27/18 07:34 99.5 F 80 16 140/84 140/84 157/82 142/79 Pulse Ox 03/27/18 08:10 98 03/27/18 07:34 98 General: Conversant, No Apparent Distress, Other (Frail, cachexic in appearance. ) HEENT: Atraumatic, Normocephaly, Mucus Membranes Moist Neck: No JVD, Normal carotid pulses Cardiac: Reg Rate and Rhythm, Normal S1 and S2, No Murmur Lungs: Other (Refused respiratory assessment. ) Neuro: Alert and responsive, No focal deficits noted Abdomen: Soft, Non-Tender Skin: No rashes noted on visualized skin Musculoskeletal: No Chest Wall Tenderness Extremities: No Clubbing, No Cyanosis, No Edema, Normal Pulses Results 03/27/18 03:50 03/27/18 03:50 Lab Results Impressions Chest X-Ray 03/26/18 12:21 IMPRESSION: Patchy opacity in the right perihilar region likely corresponding to areas of ground-glass attenuation seen on the prior CT from 03/16/2018 and likely related to postradiation changes/pneumonitis. No new acute cardiopulmonary findings. D/ / 03/26/2018 13:02:03 Misti Luther MD / jonathan Interpreting Provider: Misti Luther MD Head CT 03/26/18 12:28 IMPRESSION: No acute intracranial abnormality. D/ / Clark Frey MD / Clark Frey MD Interpreting Provider: Clark Frey MD Active Medications Acetaminophen (Tylenol) 650 mg PO Q6HR PRN PRN Reason: Mild Pain/Fever Stop: 09/25/18 21:30 Aspirin (Aspirin Ec) 81 mg PO DAILY ANUSHA Stop: 09/26/18 09:01 Last Admin: 03/27/18 08:09 Dose: 81 mg Calcium Carbonate (Tums) 1,000 mg PO BID PRN; Protocol PRN Reason: Abdominal Distention Stop: 09/25/18 22:18 Enoxaparin Sodium (Lovenox) 40 mg SQ 0600 ANUSHA PRN Reason: Protocol Stop: 09/26/18 06:01 Last Admin: 03/27/18 10:37 Dose: 40 mg Sodium Chloride (0.9 % Sodium Chloride) 1,000 mls @ 100 mls/hr IVC .Q10H ANUSHA Stop: 03/27/18 17:29 Last Admin: 03/27/18 04:37 Dose: 100 mls/hr Levofloxacin/Dextrose (Levaquin Premix 500mg/100ml) 500 mg in 100 mls @ 100 mls /hr IVPB DAILY ANUSHA PRN Reason: Protocol Stop: 09/26/18 09:01 Last Admin: 03/27/18 10:38 Dose: 100 mls/hr Megestrol Acetate (Megace) 800 mg PO DAILY ANUSHA PRN Reason: Protocol Stop: 09/26/18 09:01 Last Admin: 03/27/18 08:09 Dose: 800 mg Mirtazapine (Remeron) 15 mg PO HS ANUSHA Stop: 09/26/18 21:01 Naloxone HCl (Narcan) 0.4 mg IVP Q2MIN PRN PRN Reason: SEE COMMENTS Stop: 09/25/18 21:30 Trazodone HCl (Trazodone) 50 mg PO HS PRN PRN Reason: Sleep Stop: 09/25/18 22:16 Last Admin: 03/26/18 23:38 Dose: 50 mg Laboratory Tests 03/26/18 03/26/18 03/27/18 12:46 12:46 03:50 Hgb 12.5 10.8 L D Creatinine Troponin I < 0.03 03/27/18 03:50 Hgb Creatinine 0.60 Troponin I - Imaging and Cardiology Chest Xray: report reviewed Echo: pending - EKG Interpretation EKG results cardiology: personally reviewed (ECG with SR, HR 92. RBBB noted.), other (Telemetry reviewed with average HR previous 12 hours noted to be 80, SR. PVCs and PACS noted. 2 short runs of atrial tachycardia noted.) Consult Discharge Plan - Plan Referrals: NONE,PCP [Primary Care Provider] - <Inna Bernstein - Last Filed: 03/27/18 13:23> Date of Encounter: 03/27/18 - Attending Attestation I examined this patient and my medical decision-making was reviewed with the [employer]. I agree with the documented findings, disposition and treatment plan as described. We have been asked to see Ms. Tena for a reported near syncopal event while getting out of bed. Reports recent diarrhea, decreased oral intake. On chemotherapeutic agents for small cell lung CA. She is alert and conversant but frail appearing. Hemodynamically stable. Receiving IVFs. Denies any further episodes. No ECG or telemetry evidence for a cardiac cause to her symptoms. Suspect age, cancer, chemo, cachexia, diarrhea contributing. If Echo is unremarkable, no further recommendations. Assessment and Plan Discussion w patient/family: The assessment and plan as outlined above was discussed with the patient and/or family members who expressed understanding and agreement. All questions were answered. Thank you for involving us in the care of your patient. Please call with any questions. History of Present Illness History of present illness: Ms. Tena is a 82 year old female All Systems Review: The remainder of the systems were reviewed and are negative Physical Examination Vital Signs, Last 4 Hours Temp Pulse Resp BP Pulse Ox 03/27/18 11:58 98.3 F 85 16 129/71 95 Results 03/27/18 03:50 03/27/18 03:50 Lab Results 03/27/18 03/27/18 03/27/18 03:50 03:50 03:50 WBC 5.1 Hgb 10.8 L D Hct 32.7 L Plt Count 236 Sodium 140 Potassium 3.5 Chloride 109 H Carbon Dioxide 22 L BUN 14 Creatinine 0.60 Glucose 94 Calcium 8.7 Magnesium 2.0 Total Bilirubin 0.6 AST 12 L ALT 8 Alkaline Phosphatase 71 B-Natriuretic Peptide 66 TSH 03/27/18 03:50 WBC Hgb Hct Plt Count Sodium Potassium Chloride Carbon Dioxide BUN Creatinine Glucose Calcium Magnesium Total Bilirubin AST ALT Alkaline Phosphatase B-Natriuretic Peptide TSH 1.869
[2018-03-27] MEDS: Mirtazapine 15 MG TABLET PO SCH (20:10)
[2018-03-28] MEDS: *HR* Enoxaparin 40 MG/0.4 ML SYRINGE SQ SCH (05:41)
[2018-03-28] MEDS: Aspirin Enteric Coated 81 MG Tablet PO SCH (07:48)
[2018-03-28] MEDS: Levofloxacin 500 MG/100 ML 500 MG/100 ML BAG IVPB SCH (07:49)
[2018-03-28] MEDS: Megestrol Acetate 400 MG/10 ML UDC PO SCH (07:49)
--- NOTE | 2018-03-28 08:36 | Internal Med Progress Note ---
Hospitalist Progress Note - Encounter Date of Encounter: 03/28/18 Time of Encounter: 08:29 - Subjective Interval History: Seen at bedside today, no acute changes overnight. Discussed plan of care, patient in agreement. - Exam Vitals: Temp Pulse Resp BP Pulse Ox 99.3 F 77 15 130/60 96 03/28/18 07:29 03/28/18 07:29 03/28/18 07:29 03/28/18 07:29 03/28/18 07:50 Exam: PHYSICAL EXAMINATION: GENERAL: The patient is a malnourished, ill appearing female who is alert and oriented x3. HEENT: Head is normocephalic and atraumatic. Extraocular muscles are intact. Pupils are equal, round, and reactive to light and accommodation. Nares appeared normal. NECK: Supple. No carotid bruits. No lymphadenopathy or thyromegaly. LUNGS: Clear/diminished to auscultation. HEART: Regular rate and rhythm without murmur. ABDOMEN: Soft, nontender, and nondistended. Positive bowel sounds. No hepatosplenomegaly was noted. EXTREMITIES: Without any cyanosis, clubbing, rash, lesions or edema. PSYCHIATRIC: Flat affect, but denies suicidal or homicidal ideations. SKIN: No ulceration or induration present. - Assessment and Plan (1) Near syncope Current Visit: Yes Status: Acute Assessment and Plan: Near syncope with possible syncopal episode and a cachectic 82-year-old female with history of small cell cancer. No significant changes on EKG were noted. Will check orthostatics, started on IV fluids, monitor on telemetry. Obtain echo and carotid ultrasound in the morning. Patient did not endorse any dysuria or frequency per se however her urinalysis is possibly suggestive of cystitis. We will send for urine culture. (2) UTI (urinary tract infection) Current Visit: Yes Status: Acute (3) Small cell lung cancer Current Visit: No Status: Chronic Assessment and Plan: Follows with [facility], Palliative care has seen on past visits. See note (4) Weakness Current Visit: Yes Status: Acute Assessment and Plan: see summary of A&P DVT Prophylaxis: lovenox and SCD's - Summary of Assessment and Plan Summary of Assessment and Plan: Patient reports feeling extremely dizzy yesterday and near syncope while getting out of bed Lives at home alone and reports that she is mostly independent with her activities however due to her current condition fevers she will not be able to properly care for herself 03/28--clinically, patient continues to appear weak and fatigued. Denying any dizziness this morning. Discussed getting social media senior associate, physical therapy, occupational therapy and palliative care to assist with setting up home health and discuss goals of care. I believe that the patient is failure to thrive status post chemoradiation and needs further evaluation as well as discuss goals of care requiring her to stay an additional day. Orthostatic vitals negative per my review no significant changes on EKG trop negative TTE-LVEF 60-65%, mild LV DDD, normal RV, mild AR, no PHTN Carotid [id number] plaque bilaterally UTI Continue with antibiotics and IV fluid; follow cultures - Time Spent with Patient Total time spent is greater than 50% in coordination of care (as documented) at patient's floor/unit and/or counseling patient: less than 15 minutes Plan of Care Discussed with: patient Internal Medicine: Result - Labs CBC & Chem 7: 03/27/18 03:50 03/27/18 03:50 - Impressions Impressions Echocardiogram 03/27/18 05:11 Impressions: LVEF 60-65%. Mild left ventricular diastolic dysfunction. Normal right ventricular structure and function. Mild aortic regurgitation. No pulmonary hypertension. Left Ventricular Wall Motion: Rest Echo Findings All wall segments showed normal motion. Findings: Study Quality * Technically adequate exam. ECG Findings * Normal sinus rhythm. Left Ventricle * LVEF 60-65%. * Mild left ventricular diastolic dysfunction. * Normal LV chamber size and wall thickness. * No LVOT obstruction. Right Ventricle * Normal right ventricular structure and function. Left Atrium * Normal left atrial size. Right Atrium * Normal right atrial size. Aortic Valve * Aortic valve not well visualized. * No aortic stenosis. * Mild aortic regurgitation. Mitral Valve * No mitral regurgitation. * Normal mitral valve structure. * No mitral stenosis. Tricuspid Valve * Tricuspid valve not well visualized. * Trace tricuspid regurgitation. * Estimated RA pressure is 8 mmHg. * Estimated RVSP is 29 mmHg. * No pulmonary hypertension. Pulmonic Valve * Pulmonic valve is not well visualized. * No pulmonic stenosis. * No pulmonic regurgitation. Pulmonary Artery * Pulmonary artery not well visualized. Aorta * Not well visualized. Pericardium * There is no pericardial effusion present. Interatrial Septum * No evidence of PFO by color Doppler. IVC * The IVC is not dilated. * < 50% respiratory change. Consult Discharge Plan - Plan Referrals: NONE,PCP [Primary Care Provider] - (2) UTI (urinary tract infection) Qualifiers: Urinary tract infection type: acute cystitis Hematuria presence: without hematuria Qualified Code(s): N30.00 - Acute cystitis without hematuria
[2018-03-28 10:30] LABS: Basophils # 0.1 K/mcL (0.0-0.2); Eosinophils # 0.1 K/mcL (0.0-0.6); Eosinophils % 2.9 %; Hematocrit 31.4 % (35.3-44.9); Hemoglobin 10.2 g/dL (11.5-15.4); Immature Granulocytes % 0.4 % (0-4); Lymphocytes # 0.9 K/mcL (0.6-4.6); Lymphocytes % 18.3 %; Mean Corpuscular HGB Conc 32.5 g/dL (31.6-35.5); Mean Corpuscular Hemoglobin 28.1 pg (28.0-33.3); Mean Corpuscular Volume 86.5 fL (83.0-100.0); Mean Platelet Volume 9.8 fL (9.4-12.4); Monocytes # 0.6 K/mcL (0.0-1.3); Monocytes % 12.3 %; Neutrophils # 3.1 K/mcL (1.6-8.9); Platelet Count 231 K/mcL (140-400); Red Blood Count 3.63 M/mcL (3.82-4.97); Red Cell Distribution Width 13.7 % (11.5-14.5); Segmented Neutrophils % 65.1 %
[2018-03-28 10:49] LABS: BUN/Creatinine Ratio 16 (6-26); Blood Urea Nitrogen 11 mg/dL (8-23); Calcium 9.1 mg/dL (8.6-10.3); Carbon Dioxide 23 mEq/L (23-29); Chloride 107 mEq/L (98-107); Glucose 100 mg/dL (70-105); Osmolality,Calculated 281 (280-300); Potassium 3.4 mEq/L (3.5-5.1); Sodium 136 mEq/L (136-145); eGFR For Non-African Americans > 60 (> 60)
[2018-03-28] MEDS: Mirtazapine 15 MG TABLET PO SCH (19:59)
[2018-03-29 04:57] LABS: Basophils % 0.6 %; Eosinophils # 0.1 K/mcL (0.0-0.6); Eosinophils % 2.3 %; Immature Granulocytes % 0.4 % (0-4); Lymphocytes # 0.9 K/mcL (0.6-4.6); Lymphocytes % 18.4 %; Mean Corpuscular HGB Conc 33.3 g/dL (31.6-35.5); Mean Corpuscular Hemoglobin 29.2 pg (28.0-33.3); Mean Corpuscular Volume 87.5 fL (83.0-100.0); Mean Platelet Volume 10.2 fL (9.4-12.4); Monocytes # 0.6 K/mcL (0.0-1.3); Monocytes % 12.3 %; Neutrophils # 3.4 K/mcL (1.6-8.9); Platelet Count 228 K/mcL (140-400); Red Blood Count 3.43 M/mcL (3.82-4.97); Red Cell Distribution Width 13.7 % (11.5-14.5)
[2018-03-29 05:16] LABS: BUN/Creatinine Ratio 29 (6-26); Blood Urea Nitrogen 20 mg/dL (8-23); Calcium 9.1 mg/dL (8.6-10.3); Carbon Dioxide 20 mEq/L (23-29); Chloride 109 mEq/L (98-107); Glucose 114 mg/dL (70-105); Osmolality,Calculated 287 (280-300); Potassium 3.5 mEq/L (3.5-5.1); Sodium 137 mEq/L (136-145); eGFR For Non-African Americans > 60 (> 60)
[2018-03-29] MEDS: *HR* Enoxaparin 40 MG/0.4 ML SYRINGE SQ SCH (06:15)
[2018-03-29] MEDS: Levofloxacin 500 MG/100 ML 500 MG/100 ML BAG IVPB SCH (08:17)
[2018-03-29] MEDS: Megestrol Acetate 400 MG/10 ML UDC PO SCH (08:17)
[2018-03-29] MEDS: Aspirin Enteric Coated 81 MG Tablet PO SCH (08:17)
[2018-03-29] MEDS: Fluticasone Propionate Nasal 50 MCG/SPRAY BOTTLE NS SCH (12:10)
--- NOTE | 2018-03-29 13:33 | Palliative - Consult Note ---
Date of Encounter: 03/29/18 Time of Encounter: 09:30 - Assessment and Plan (1) Debility Current Visit: Yes Status: Acute Assessment and plan: Patient had near syncopal episode prior to admission. Reports feeling very weak. PT/OT consult appreciated. Recommend ECF placement for rehab at discharge. (2) Dyspnea Current Visit: No Status: Resolved Assessment and plan: Patient reports increased dyspnea on exertion. Recommend periods of rest in activity. Oxygen saturation 96% on room air. Qualifiers: Dyspnea type: shortness of breath Qualified Code(s): R06.02 - Shortness of breath; R06.00 - Dyspnea, unspecified; R06.01 - Orthopnea (3) Weakness Current Visit: Yes Status: Acute Assessment and plan: Patient requiring increased assistance; unable to live at home independently at this time. ECF placement required. (4) Goals of care, counseling/discussion Current Visit: No Status: Acute Assessment and plan: Conducted family meeting with patient and daughter Lesley Pruitt. Discussed home situation. Patient lives at home alone, neighbor nearby and daughter visits once per week. Daughter lives an hour away. Inadequate support with current physical ability. Plan to discharge patient to ECF for skilled rehab at discharge. PT/OT consult appreciated. Daughter has identified placement (1. [facility] and 2. [place] [facility]). Patient in agreement. Discussed terminal gauger plan; patient would like to get stronger with rehab then return home. Will notify Mk IVAN with identified ECF facilities for discharge for rehab. Discussed CODE STATUS; Patient and daughter in agreement to remain FULL CODE at this time. Patient agreeable to short term intubation, but does not want usp intubation/trach. Patient and daughter agreed they both have an understanding of her desires and will follow wishes should that time come that patient would need extubated to comfort care. To remain FULL CODE with full aggressive treatment continued at this time. (5) Lack of appetite Current Visit: No Status: Acute (6) Small cell lung cancer Current Visit: No Status: Chronic (7) Constipation Current Visit: Yes Status: Acute Assessment and plan: Patient has had now bowel movement since admission. Will order Senna. Qualifiers: Constipation type: unspecified constipation type Qualified Code(s): K59.00 - Constipation, unspecified Palliative-CN HPI - Data of Consult Patient: known to practice within the last 3 years Consult date: 03/28/18 Requesting Physician: Taryn Agarwal MD Primary Care Provider: PCP NONE - Consult Narrative Palliative Care/Comfort Measures: Palliative care Reason for consult: Goals of care History of present illness: Ms. Tena is a 82 year old female Arrived to [facility] on 03/26/18 for weakness and near syncope. PMH: Small Cell Lung Cancer; has completed all chemo/ radiation. Upon arrival, offered ECF but declined. Chest x-ray completed, showing: Patchy opacity in the right perihilar region likely corresponding to areas of ground-glass attenuation seen on the prior CT from 03/16/2018 and likely related to postradiation changes/pneumonitis; no acute cardiopulmonary findings. EKG performed showing: SR, IVCD, consider atypical RBBB; abnormal T, consider ischemia. CT of head without contrast showing: No acute intracranial abnormality. Echo performed showing 60-65% ef. Cardiology consult completed, suspect vasovagal episode. Patient was admitted and medically managed for: Near Syncope, UTI, Small cell lung cancer and weakness. PT evaluation completed; recommend ECF. Palliative care consult for goals of care. Patient lying in bed upon arrival for assessment. Appears to be quite weak, reports only pain with movement. Patient is alert and oriented times 3. No family present during initial assessment; requested follow up meeting with daughter in consultation to make plans for discharge. Denies pain, nausea, vomiting, anxiety and shortness of breath during assessment. Patient denies difficulty with voiding and bowel movement. No bowel movement documented since admission; patient unsure when last bowel movement was. Patient does reports feeling sad at times, but denies need for medical intervention; denies ideas of self harm. Patient reports megace has improved her appetite somewhat and desires to continue medication. CC: Taryn Agarwal MD Past Med Surg Social Fam HX - Past Medical History Medical history: cancer, other Additional medical history: smoker 60+ years, quit last year. Psychiatric history: no psych history - Past Surgical History Surgical History: no surgical history Additional surgical history: PORT- right chest - Social History Smoking Status: Former smoker Smokeless Tobacco Status: No Alcohol use: none Drug use: none - Family History Mother Name: Christi Nickerson Family Member Ethnicity: Non- Living Status: Age at : 70 Cause of : [place] Hx Family Cardiac Disorders: Yes Hx Family Neuromuscular Disorders: Yes (CVA) Father Name: Neymar Allan Living Status: Age at : 70 Cause of : [place] Hx Family Cardiac Disorders: Yes Brother Living Status: Hx Family Cardiac Disorders: Yes Medications and Allergies Aspirin [Lo-Dose Aspirin EC] 81 mg PO DAILY 06/09/17 [History] Calcium Carbonate [Tums] 1,000 mg PO BID PRN 11/19/17 [History] Megestrol Acetate [Megace] 800 mg PO DAILY #400 mls 02/05/18 [Rx] Acetaminophen [Tylenol] 650 mg PO Q6HR PRN tablet 03/18/18 [Rx] Mirtazapine [Remeron] 15 mg PO HS 03/26/18 [History] 3 Allergy/AdvReac Type Severity Reaction Status Date / Time Penicillins AdvReac Rash Verified 03/26/18 12:16 Sulfa (Sulfonamide AdvReac Rash Verified 03/26/18 12:16 Antibiotics) - Constitutional Constitutional ROS PAL: decreased appetite, frequent falls, lethargy - Cardiovascular Cardiovascular ROS: dyspnea on exertion, no chest pain - Respiratory Respiratory: dyspnea on exertion - Gastrointestinal Gastrointestinal: no constipation (denies, but ensure when last bowel movement occurred.), no nausea, no vomiting - Genitourinary Palliative ROS female: no difficulty voiding - Musculoskeletal Musculoskeletal ROS IM: no back pain - Integumentary ROS Integumentary: dry skin - Neurological Neurological ROS: dizziness, syncope - Psychiatric Psychiatric general PM: no anxiety Palliative Care-Exam - Constitutional Vitals: Temp Pulse Resp BP Pulse Ox 97.7 F 89 15 129/73 95 03/29/18 11:21 03/29/18 11:21 03/29/18 11:21 03/29/18 11:21 03/29/18 11:21 General appearance: Present: cooperative, no acute distress - Head Head Exam: Present: normal inspection, normocephalic - Eye Eye exam: Present: EOMI, normal appearance, PERRL, conjuntiva pink. Absent: periorbital swelling, periorbital tenderness Pupils: Present: normal accommodation, PERRL - ENT ENT exam: Present: mucous membranes moist, normal external ear exam - Expanded ENT Exam Mouth Exam: Absent: drooling - Neck Neck exam: Present: full ROM, normal inspection - Respiratory Respiratory exam: Present: rhonchi. Absent: respiratory distress - Cardiovascular Cardiovascular exam: Present: +S1, +S2 - Expanded Cardiovascular Exam Peripheral pulses: 2+: Radial (L), Radial (R), Posterior Tibialis (L), Posterior Tibialis (R), Dorsalis Pedis (L) PM, Dorsalis Pedis (R) PM - GI/Abdominal Exam GI/Abdominal exam: Present: diminished bowel sounds, soft. Absent: tenderness - Rectal Rectal exam: Present: deferred - Extremities Exam Extremities exam: Present: full ROM, normal inspection. Absent: pedal edema - Back Exam Back exam: Present: full ROM - Neurological Exam Neurological exam: Present: alert, oriented X3, strengths equal and symetr throughout. Absent: altered - Expanded Neurological Exam Coma Scale Eye Opening: Spontaneous Coma Scale Motor Response: Obeys Commands Coma Scale Verbal Response: Oriented Coma Scale Total: 15 - Psychiatric Psychiatric exam: Present: normal affect, normal mood. Absent: anxious - Skin Skin exam: Present: dry, intact Internal Medicine - CN: Reslt - Labs CBC & Chem 7: 03/29/18 03:49 03/29/18 03:49 Labs: Short CBC 03/29/18 Range/Units 03:49 WBC 5.1 (4.3-11.1) K/mcL Hgb 10.0 L (11.5-15.4) g/dL Hct 30.0 L (35.3-44.9) % Plt Count 228 (140-400) K/mcL Neutrophils # 3.4 (1.6-8.9) K/mcL BMP 03/29/18 03:49 Sodium 137 Potassium 3.5 Chloride 109 H Carbon Dioxide 20 L BUN 20 Creatinine 0.70 Glucose 114 H Calcium 9.1 Consult Discharge Plan - Plan Referrals: NONE,PCP [Primary Care Provider] - Palliative Quality Palliative Quality: Screen for Code Status: Yes, Screen for Goals of Care: Yes, Screen for Pain: Yes, If Pain Regimen Started, Initiate Bowel Regimen: NA, Screen for Nausea/Vomitting: Yes
--- NOTE | 2018-03-29 14:30 | Internal Med Progress Note ---
Hospitalist Progress Note - Encounter Date of Encounter: 03/29/18 Time of Encounter: 14:28 - Subjective Interval History: Seen at bedside today, no acute changes overnight. - Exam Vitals: Temp Pulse Resp BP Pulse Ox 97.7 F 89 15 129/73 95 03/29/18 11:21 03/29/18 11:21 03/29/18 11:21 03/29/18 11:21 03/29/18 11:21 Exam: PHYSICAL EXAMINATION: GENERAL: The patient is a malnourished, ill appearing female who is alert and oriented x3. HEENT: Head is normocephalic and atraumatic. Extraocular muscles are intact. Pupils are equal, round, and reactive to light and accommodation. Nares appeared normal. NECK: Supple. No carotid bruits. No lymphadenopathy or thyromegaly. LUNGS: Clear/diminished to auscultation. HEART: rrr, s1, s2 without murmur. ABDOMEN: Soft, nontender, and nondistended. Positive bowel sounds. No hepatosplenomegaly was noted. EXTREMITIES: Without any cyanosis, clubbing, rash, lesions or edema. PSYCHIATRIC: Flat affect, but denies suicidal or homicidal ideations. SKIN: No ulceration or induration present. - Assessment and Plan (1) Near syncope Current Visit: Yes Status: Acute Assessment and Plan: Patient reports feeling extremely dizzy yesterday and near syncope while getting out of bed Lives at home alone and reports that she is mostly independent with her activities Orthostatic vitals negative per my review no significant changes on EKG trop negative TTE-LVEF 60-65%, mild LV DDD, normal RV, mild AR, no PHTN Carotid unnicdv-hna-ihqedsmx plaque bilaterally suspect vasovagal episodes, with dehydration, malnutrition, weakness s/p chemoradiation and weigh-loss d/c with DENNY's, discussed activity tolerance and safety measure PT/OT while inpatient to d/c to [facility] for skilled therapy (2) UTI (urinary tract infection) Current Visit: Yes Status: Acute Assessment and Plan: Received 3-day IV levaquin d/c levaquin today denies any urinary s/sx afebrile, non-toxic appearing and no leukocytosis (3) Small cell lung cancer Current Visit: No Status: Chronic Assessment and Plan: Follows with [facility], Palliative care consulted. See note (4) Weakness Current Visit: Yes Status: Acute Assessment and Plan: see summary of A&P (5) Goals of care, counseling/discussion Current Visit: No Status: Acute Assessment and Plan: To d/c to [facility] ([facility]) for skilled rehab at d/c PT/TO to follow while inpatient SS for d/c planning remains full code palliative following DVT Prophylaxis: lovenox and SCD's - Time Spent with Patient Total time spent is greater than 50% in coordination of care (as documented) at patient's floor/unit and/or counseling patient: less than 15 minutes Plan of Care Discussed with: patient Internal Medicine: Result - Labs CBC & Chem 7: 03/29/18 03:49 03/29/18 03:49 Labs: Short CBC 03/29/18 Range/Units 03:49 WBC 5.1 (4.3-11.1) K/mcL Hgb 10.0 L (11.5-15.4) g/dL Hct 30.0 L (35.3-44.9) % Plt Count 228 (140-400) K/mcL Neutrophils # 3.4 (1.6-8.9) K/mcL BMP 03/29/18 03:49 Sodium 137 Potassium 3.5 Chloride 109 H Carbon Dioxide 20 L BUN 20 Creatinine 0.70 Glucose 114 H Calcium 9.1 Consult Discharge Plan - Plan Referrals: NONE,PCP [Primary Care Provider] - (2) UTI (urinary tract infection) Qualifiers: Urinary tract infection type: acute cystitis Hematuria presence: without hematuria Qualified Code(s): N30.00 - Acute cystitis without hematuria
[2018-03-29] MEDS: Sennosides/Docusate Sodium TABLET PO SCH (15:06)
[2018-03-29] MEDS: Mirtazapine 15 MG TABLET PO SCH (20:51)
[2018-03-30 05:08] LABS: Basophils % 0.9 %; Eosinophils # 0.1 K/mcL (0.0-0.6); Eosinophils % 2.5 %; Hematocrit 27.8 % (35.3-44.9); Hemoglobin 9.3 g/dL (11.5-15.4); Immature Granulocytes % 0.5 % (0-4); Lymphocytes # 0.9 K/mcL (0.6-4.6); Lymphocytes % 19.4 %; Mean Corpuscular HGB Conc 33.5 g/dL (31.6-35.5); Mean Corpuscular Hemoglobin 28.3 pg (28.0-33.3); Mean Corpuscular Volume 84.5 fL (83.0-100.0); Mean Platelet Volume 10.2 fL (9.4-12.4); Monocytes # 0.5 K/mcL (0.0-1.3); Monocytes % 11.2 %; Neutrophils # 2.9 K/mcL (1.6-8.9); Platelet Count 234 K/mcL (140-400); Red Blood Count 3.29 M/mcL (3.82-4.97); Segmented Neutrophils % 65.5 %
[2018-03-30] MEDS: *HR* Enoxaparin 40 MG/0.4 ML SYRINGE SQ SCH (05:13)
[2018-03-30 05:29] LABS: BUN/Creatinine Ratio 34 (6-26); Blood Urea Nitrogen 20 mg/dL (8-23); Carbon Dioxide 21 mEq/L (23-29); Chloride 109 mEq/L (98-107); Glucose 112 mg/dL (70-105); Osmolality,Calculated 289 (280-300); Potassium 3.6 mEq/L (3.5-5.1); Sodium 138 mEq/L (136-145); eGFR For Non-African Americans > 60 (> 60)
[2018-03-30 08:13] LABS: % Iron Saturation 17 % (15-50); Iron 46 mcg/dL (50-170); Transferrin 190 mg/dL (203-362)
[2018-03-30 08:30] LABS: Ferritin 137 ng/mL (10-120)
[2018-03-30] MEDS: Fluticasone Propionate Nasal 50 MCG/SPRAY BOTTLE NS SCH (08:48)
[2018-03-30] MEDS: Sennosides/Docusate Sodium TABLET PO SCH (08:48)
[2018-03-30] MEDS: Aspirin Enteric Coated 81 MG Tablet PO SCH (08:48)
[2018-03-30] MEDS: Megestrol Acetate 400 MG/10 ML UDC PO SCH (08:49)
--- NOTE | 2018-03-30 09:26 | Event Note ---
Date of Encounter: 03/30/18 Time of Encounter: 09:05 Patient resting in bed upon arrival. Patient is alert and oriented times 3. No family present at bedside. Denies pain, nausea, vomiting, anxiety, and shortness of breath. Vital signs stable. Patient reports she is ready to go to rehab to get stronger; PT/OT recommend SNF placement at discharge. Informed patient that her first choice [facility] has bed for rehab placement, awaiting insurance approval. Palliative care will follow from a distance.
--- NOTE | 2018-03-30 13:58 | Physician Discharge Referral ---
ExtendedCare Referral Info Transfer To: [facility] Provider in Charge after Transfer: PCP Institutional Level of Care: Skilled Expected Duration of Placement: 21 days Prognosis: Fair - Transfer Medications Home Medications: Aspirin [Lo-Dose Aspirin EC] 81 mg PO DAILY 06/09/17 [History] Calcium Carbonate [Tums] 1,000 mg PO BID PRN 11/19/17 [History] Megestrol Acetate [Megace] 800 mg PO DAILY #400 mls 02/05/18 [Rx] Acetaminophen [Tylenol] 650 mg PO Q6HR PRN tablet 03/18/18 [Rx] Mirtazapine [Remeron] 15 mg PO HS 03/26/18 [History] Allergies/Adverse Reactions: 3 Allergy/AdvReac Type Severity Reaction Status Date / Time Penicillins AdvReac Rash Verified 03/26/18 12:16 Sulfa (Sulfonamide AdvReac Rash Verified 03/26/18 12:16 Antibiotics) - Respiratory Orders Smoking Cessation: Smoking cessation has been advised. For more information, call the [place] Tobacco Quit Line at 7-608-YNKZ-NOW. - Lab Orders Lab Orders: 2 Step Mantoux Test per State regulation, CBC, U/A, Anibal 17, CXR yearly - Ancillary Orders May use pressure relief devices daily prn, May go on ANA w/family/respon republican w /meds at nurse discretion PRN, May consult with Dentist, Instrumentation Specialist, Hydrogen Treater PRN - Advance Directives Code Status: Full Code - Mobility Orders Ambulate - Rehabiliation Orders Rehab Potential: Fair Rehab Orders: ROM Exercises, Evaluation for Physical Therapy, Evaluation for Occupational Therapy - Treatments Skin tear care topically daily PRN per policy, May check for fecal impaction rectally daily PRN, Fleet enema rectally every other day PRN cleansing purposes - Diet Orders Regular CERTIFICATION: I certify that the transfer of the above named patient to an Extended Care Facility is necessary for the continuing treatment of the diagnosis listed. The above information is true and accurate reflection of patient's current condition. Confidential - Redisclosure prohibited without a patient's written consent.
[2018-03-30] MEDS: traZODone 50 MG TABLET PO PRN (17:56)
[2018-03-30] MEDS: Mirtazapine 15 MG TABLET PO SCH (20:13)
[2018-03-31 05:50] LABS: Hematocrit 32.8 % (35.3-44.9); Hemoglobin 10.4 g/dL (11.5-15.4)
[2018-03-31] MEDS: *HR* Enoxaparin 40 MG/0.4 ML SYRINGE SQ SCH (05:51)
--- NOTE | 2018-03-31 07:20 | Internal Med Progress Note ---
Hospitalist Progress Note - Encounter Date of Encounter: 03/30/18 Time of Encounter: 09:45 - Subjective Interval History: Pt was seen and assessed at 0945. Pt is awake, alert, oriented, quiet. Pt states that she is feeling "ok" and is ready to get to the ECF so she can "get warm". Pt denies headache, n/v/d, abdominal pain, chest pain, SOB. - Exam Vitals: Temp Pulse Resp BP Pulse Ox 99.6 F 81 16 115/69 94 03/31/18 06:49 03/31/18 06:49 03/31/18 06:49 03/31/18 06:49 03/31/18 06:49 Exam: PHYSICAL EXAMINATION: GENERAL: The patient is a malnourished, cachectic, ill appearing female who is alert and oriented x3. HEENT: Head is normocephalic and atraumatic. EOMI. Nares appeared normal. NECK: Supple. No carotid bruits. No lymphadenopathy or thyromegaly. LUNGS: Clear/diminished to auscultation. No wheezing, rales, ronchi. Respirations are unlabored. HEART: RRR, s1, s2 without murmur. ABDOMEN: Soft, nontender, and nondistended. Positive bowel sounds. No hepatomegaly was noted. EXTREMITIES: Without any cyanosis, clubbing, rash, lesions or edema. Peripheral pulses palpable +1 PSYCHIATRIC: Flat affect, but denies suicidal or homicidal ideations. SKIN: No rashes, redness, skin is p/w/d. - Assessment and Plan (1) Small cell lung cancer Current Visit: Yes Status: Chronic Assessment and Plan: Follows with [facility], Palliative care consulted. Pt to be discharged to [facility], follow outpatient (2) Weakness Current Visit: Yes Status: Acute Assessment and Plan: Pt to ECF. Monitor for falls and safety. (3) Goals of care, counseling/discussion Current Visit: Yes Status: Acute Assessment and Plan: To d/c to [facility] ([facility]) for skilled rehab PT/TO while inpatient remains full code Palliative consulted. See note. (4) Near syncope Current Visit: Yes Status: Acute Assessment and Plan: Patient reports feeling extremely dizzy and near syncope while getting out of bed prior to admission Lives at home alone and reports that she is mostly independent with her activities Orthostatic vitals negative per my review no significant changes on EKG trop negative TTE-LVEF 60-65%, mild LV DDD, normal RV, mild AR, no PHTN Carotid aixblrx-oam-kkkjdpij plaque bilaterally suspect vasovagal episodes, with dehydration, malnutrition, weakness s/p chemoradiation and weigh-loss d/c with DENNY's, discussed activity tolerance and safety measure PT/OT while inpatient To [facility] for rehab. (5) UTI (urinary tract infection) Current Visit: Yes Status: Acute Assessment and Plan: Received 3-day IV levaquin denies any urinary s/sx afebrile, non-toxic appearing and no leukocytosis DVT Prophylaxis: lovenox and SCD's - Time Spent with Patient Total time spent is greater than 50% in coordination of care (as documented) at patient's floor/unit and/or counseling patient: less than 15 minutes Plan of Care Discussed with: patient Internal Medicine: Result - Labs CBC & Chem 7: 03/31/18 04:15 03/30/18 04:15 Labs: Short CBC 03/31/18 Range/Units 04:15 Hgb 10.4 L (11.5-15.4) g/dL Hct 32.8 L (35.3-44.9) % BMP 03/30/18 04:15 Sodium 138 Potassium 3.6 Chloride 109 H Carbon Dioxide 21 L BUN 20 Creatinine 0.59 L Glucose 112 H Calcium 9.0 Consult Discharge Plan - Plan Instructions: Syncope (DC) Referrals: NONE,PCP [Primary Care Provider] - (5) UTI (urinary tract infection) Qualifiers: Urinary tract infection type: acute cystitis Hematuria presence: without hematuria Qualified Code(s): N30.00 - Acute cystitis without hematuria
--- NOTE | 2018-03-31 07:39 | Discharge Summary ---
Orders not resulted at time of discharge: Pending orders 03/30/18 07:39 Folate Routine Occult Blood,Stool [BF] Timed Vitamin B12 Routine Date of Encounter: 03/31/18 Time of Encounter: 09:55 - Discharge Diagnosis (1) Small cell lung cancer Priority: Secondary Status: Chronic Assessment and Plan: Chronic. Follows with [facility], Palliative care consulted. Pt to be discharged to ECF, follow outpatient (2) Weakness Priority: Secondary Status: Acute Assessment and Plan: Pt to ECF. Monitor for falls and safety. Pt unable to live independently at home for safety reasons. PT/OT rehab at [facility]. (3) Goals of care, counseling/discussion Priority: Secondary Status: Acute Assessment and Plan: To d/c to [facility] ([facility]) for skilled rehab PT/TO while inpatient Pt to remain full code. Palliative consulted. PT/OT at F due to pt weakness. Goal to return home after rehab. (4) Near syncope Priority: Secondary Status: Acute Assessment and Plan: Patient reports feeling extremely dizzy and near syncope while getting out of bed prior to admission, symptoms have resolved. Likely secondary to weakness and dehydration. Lives at home alone and reports that she is mostly independent with her activities Orthostatic vitals negative Troponins negative. TTE-LVEF 60-65%, mild LV DDD, normal RV, mild AR, no PHTN Carotid yoqcfvz-aiw-afmnqtry plaque bilaterally suspect vasovagal episodes, with dehydration, malnutrition, weakness s/p chemoradiation and weigh-loss DENNY hose ordered. PT/OT while inpatient To ECF for rehab. (5) UTI (urinary tract infection) Priority: Secondary Status: Resolved Assessment and Plan: Received 3-day IV levaquin denies any urinary s/sx afebrile, non-toxic appearing and no leukocytosis Qualifiers: Urinary tract infection type: acute cystitis Hematuria presence: without hematuria Qualified Code(s): N30.00 - Acute cystitis without hematuria (6) Anemia of chronic disease Priority: Secondary Status: Acute Assessment and Plan: Pt undergoing chemoradiation for small cell lung ca. Iron studies completed and though iron is slightly low, percent saturation, MCV, and ferritin are in normal range. Hbg 10.3 today, stable, no need for transfusion at this time. Monitor at [facility]. Hospital course: Ms. Tena is a 82 year old female with current small cell lung cancer, COPD. She presented to the ED with c/o weakness and near syncope. She was found to be dehydrated and symptoms resolved with IVF hydration. Workup was unremarable. Pt is weak s/p chemoradiation, is physcially deconditioned, and frail and is unable to care for herself independently at home. Daughter lives an hour away and pt has little support to maintain safety with ADLs at home. Pt is going to be discharged to [facility] for rehabilitation with the intent to return home after discharge. Pt is stable and appropriate for transfer to [facility]. Discharge discussed with: patient, nurse, case management - Time Spent with Patient Total time spent providing and/or coordinating discharge services: Less than 30 minutes - Discharge Medications Home Medications: Aspirin [Lo-Dose Aspirin EC] 81 mg PO DAILY 06/09/17 [History] Calcium Carbonate [Tums] 1,000 mg PO BID PRN 11/19/17 [History] Megestrol Acetate [Megace] 800 mg PO DAILY #400 mls 02/05/18 [Rx] Acetaminophen [Tylenol] 650 mg PO Q6HR PRN tablet 03/18/18 [Rx] Mirtazapine [Remeron] 15 mg PO HS 03/26/18 [History] Fluticasone Propionate Nasal [Flonase] 100 mcg NS DAILY bottle 03/31/18 [Rx] Sennosides/Docusate Sodium [Senna Plus] 1 each PO DAILY tablet 03/31/18 [Rx] Allergies/Adverse Reactions: 3 Allergy/AdvReac Type Severity Reaction Status Date / Time Penicillins AdvReac Rash Verified 03/26/18 12:16 Sulfa (Sulfonamide AdvReac Rash Verified 03/26/18 12:16 Antibiotics) Date of admission: 03/26/18 21:29 Primary care physician: PCP NONE Consults: 03/26/18 22:01 Consult to Dynamite [employer]ooter [CONS] Routine Reason for SW Consult: pts daughter wanted to see social work for home health set up pt lives at home and needs help completing ADLs 03/26/18 22:20 Consult to Cardiology [CONS] Routine Comment: Consulting Provider: Cardiology [place] Reason for Consult: Syncopy in the setting of RBBB Call Completed: No 03/27/18 07:48 Consult to Nutrition [CONS] Routine Comment: Consulting Provider: NUTRITION Reason for Dietary Consult: PO Supplementation Consult to Occupational Therapy [CONS] Routine Comment: Evaluate, develop and implement POC Reason for Consult: assess for deficits Does patient have active BEDREST order?: No Is patient medically & hemodynamically stable?: Yes Patient assessed for mobility or mobilized this visit?: No Consult to Physical Therapy [CONS] Routine Comment: Evaluate, develop and implement POC Reason for Consult: assess for deficits Does patient have active BEDREST order?: No Is patient medically & hemodynamically stable?: Yes Patient assessed for mobility or mobilized this visit?: No 03/28/18 07:50 Consult to Palliative Care [CONS] Routine Comment: Consulting Provider: Palliative Care [facility] Reason for Consult: discuss goals of care Time Notified: 07:51 Call Completed: Yes Discharging clinician: Yi Camara Anticipated date of discharge: 03/31/18 - Constitutional Vitals: Temp Pulse Resp BP Pulse Ox 99.6 F 81 16 115/69 94 03/31/18 06:49 03/31/18 06:49 03/31/18 06:49 03/31/18 06:49 03/31/18 06:49 General appearance: Present: cachectic, cooperative, pleasant, no acute distress , answers questions appropriately Exam: see above. - Head Head exam: Present: atraumatic, normocephalic - Eye Eye exam: Present: PERRL, conjuntiva pink, sclera anicteric Pupils: Present: PERRL - Neck Neck exam general surgery: Present: supple, trachea midline. Absent: lymphadenopathy - Respiratory Respiratory exam: Present: CTAB. Absent: accessory muscle use, rales, rhonchi, wheezes - Cardiovascular Cardiovascular exam: Present: RRR, +S1, +S2. Absent: diastolic murmur, gallop, rubs, systolic murmur - GI/Abdominal GI/Abdominal exam: Present: normal bowel sounds, soft. Absent: distended, tenderness - Extremities Exam Extremities exam: Present: normal capillary refill, warm, radial pulses palpable and symmetrical. Absent: calf tenderness, cyanotic, pedal edema, tenderness - Neurological Exam Neurological exam: Present: alert, oriented X3, no focal deficits. Absent: facial droop, speech deficit - Skin Skin exam: Present: dry, intact, warm. Absent: rash - Patient Status Disposition: Transfer SNF Condition: Good Functional capacity at discharge: uses cane/walker Overall status at discharge: patient is progressing back to baseline - Discharge Instructions Instructions: Syncope (DC) Follow Up With: NONE,PCP [Primary Care Provider] - Forms: ED Satisfaction Letter, Work/School Release - Diet and Activity Activity: as per physical therapy, increase activity as tolerated Diet: advance to your usual diet
--- NOTE | 2018-03-31 08:13 | Event Note ---
Date of Encounter: 03/31/18 Time of Encounter: 08:10 Patient's discharge plan in place. Palliative not managing any symptoms. Palliative care signing off.
[2018-03-31] MEDS: Aspirin Enteric Coated 81 MG Tablet PO SCH (10:08)
[2018-03-31] MEDS: Megestrol Acetate 400 MG/10 ML UDC PO SCH (10:08)
[2018-03-31] MEDS: Sennosides/Docusate Sodium TABLET PO SCH (10:08)
[2018-03-31] MEDS: Fluticasone Propionate Nasal 50 MCG/SPRAY BOTTLE NS SCH (10:09)
[2018-03-31 11:29] VITALS: BP 113/72
== END 2018-03-31 12:53 | DRG 180 ==
LOC: 3BNU 11:59 → EMEROOARM 11:59 → 3BNU 20:18
PROVIDERS: ADMIT Internal Medicine; ATTEND Internal Medicine

== ENCOUNTER 2020-12-16 02:47 | Inpatient (IN) ==
[2020-12-16] MEDS ORDERED: Acetaminophen 325 MG TABLET PO PRN (06:22)
[2020-12-16] MEDS ORDERED: Naloxone 0.4 MG/ML INJ IVP PRN (06:23)
[2020-12-16] MEDS ORDERED: Perflutren Lipid Microsphere 1.3 ML in 0.9 % Sodium Chloride 8.7 ML IVP PRN (06:26)
[2020-12-16 06:43] LABS: Basophils % 0.4 %; Eosinophils % 0.1 %; Hematocrit 32.7 % (35.3-44.9); Hemoglobin 9.9 g/dL (11.5-15.4); Immature Granulocytes % 0.5 % (0-4); Lymphocytes # 1.1 K/mcL (0.6-4.6); Lymphocytes % 11.5 %; Mean Corpuscular HGB Conc 30.3 g/dL (31.6-35.5); Mean Corpuscular Volume 85.8 fL (83.0-100.0); Monocytes # 0.5 K/mcL (0.0-1.3); Monocytes % 5.6 %; Neutrophils # 7.9 K/mcL (1.6-8.9); Platelet Count 250 K/mcL (140-400); Red Blood Count 3.81 M/mcL (3.82-4.97); Red Cell Distribution Width 13.7 % (11.5-14.5); Segmented Neutrophils % 81.9 %; White Blood Count 9.7 K/mcL (4.3-11.1)
[2020-12-16 07:02] LABS: BUN/Creatinine Ratio 35 (6-26); Blood Urea Nitrogen 32 mg/dL (8-23); Calcium 9.2 mg/dL (8.6-10.3); Carbon Dioxide 26 mEq/L (23-29); Chloride 103 mEq/L (98-107); Glucose 133 mg/dL (70-105); Osmolality,Calculated 289 (280-300); Potassium 4.7 mEq/L (3.5-5.1); Sodium 135 mEq/L (136-145); eGFR For African Americans > 60 (> 60); eGFR For Non-African Americans 59 (> 60)
[2020-12-16] MEDS: *HR* Heparin 5,000 UNIT/ML VIAL SQ SCH ×2 (07:33→17:28)
[2020-12-16] MEDS: Aspirin Enteric Coated 81 MG Tablet PO SCH (07:33)
[2020-12-16 15:07] LABS: Bacteria,Urine Few per hpf (None-Few); Bilirubin,Urine Negative (Negative); Blood,Urine Negative (Negative); Clarity,Urine Clear (Clear); Color,Urine Yellow (Yellow); Glucose,Urine (UA) Normal (Normal); Hyaline Casts,Urine Few per lpf (None Seen); Ketones,Urine Negative (Negative); Leukocyte Esterase,Urine Moderate (Negative); Mucus,Urine Few per lpf (None-Few); Nitrite,Urine Negative (Negative); PH,Urine 5.5 pH Units (5.0-8.0); Protein,Urine 30 mg/dL (Neg-Trace); RBC,Urine 0-3 per hpf (0-3); Squamous Epithelial Cell,Urine Moderate per hpf (None-Few); Urobilinogen,Urine Normal (Normal); WBC,Urine 30-50 per hpf (0-3)
[2020-12-16] MEDS: Mirtazapine 15 MG TABLET PO SCH (20:21)
[2020-12-16] MEDS: *HR* HYDROcodone/Acet 5/325 mg TABLET PO PRN (20:36)
[2020-12-16] MEDS ORDERED: Temazepam 15 MG CAPSULE PO ONE (21:17)
[2020-12-17] MEDS: *HR* Heparin 5,000 UNIT/ML VIAL SQ SCH ×2 (06:23→17:30)
[2020-12-17 06:31] LABS: Basophils # 0.1 K/mcL (0.0-0.2); Basophils % 0.8 %; Eosinophils # 0.2 K/mcL (0.0-0.6); Eosinophils % 3.5 %; Hematocrit 29.4 % (35.3-44.9); Immature Granulocytes % 0.6 % (0-4); Lymphocytes # 1.8 K/mcL (0.6-4.6); Lymphocytes % 29.4 %; Mean Corpuscular HGB Conc 30.6 g/dL (31.6-35.5); Mean Platelet Volume 9.4 fL (9.4-12.4); Monocytes # 0.6 K/mcL (0.0-1.3); Monocytes % 8.9 %; Neutrophils # 3.5 K/mcL (1.6-8.9); Platelet Count 204 K/mcL (140-400); Red Blood Count 3.46 M/mcL (3.82-4.97); Red Cell Distribution Width 13.7 % (11.5-14.5); Segmented Neutrophils % 56.8 %; White Blood Count 6.2 K/mcL (4.3-11.1)
[2020-12-17 06:55] LABS: BUN/Creatinine Ratio 35 (6-26); Blood Urea Nitrogen 32 mg/dL (8-23); Calcium 8.6 mg/dL (8.6-10.3); Carbon Dioxide 28 mEq/L (23-29); Chloride 103 mEq/L (98-107); Glucose 114 mg/dL (70-105); Osmolality,Calculated 290 (280-300); Potassium 4.1 mEq/L (3.5-5.1); Sodium 136 mEq/L (136-145); eGFR For African Americans > 60 (> 60); eGFR For Non-African Americans 59 (> 60)
[2020-12-17] MEDS: Aspirin Enteric Coated 81 MG Tablet PO SCH (08:11)
[2020-12-17 13:58] LABS: Magnesium 2.1 mg/dL (1.6-2.6)
[2020-12-17 14:09] LABS: Thyroid Stimulating Hormone 3.041 mcIU/mL (0.340-5.600)
[2020-12-17] MEDS: DilTIAZem CD (24hr) 120 MG CAP.ER.24H PO SCH (15:37)
[2020-12-17] MEDS: Mirtazapine 15 MG TABLET PO SCH (20:27)
[2020-12-18 03:50] LABS: Basophils # 0.1 K/mcL (0.0-0.2); Basophils % 0.8 %; Eosinophils # 0.2 K/mcL (0.0-0.6); Hemoglobin 9.6 g/dL (11.5-15.4); Immature Granulocytes % 0.7 % (0-4); Lymphocytes # 2.5 K/mcL (0.6-4.6); Lymphocytes % 26.1 %; Mean Corpuscular Hemoglobin 25.7 pg (28.0-33.3); Mean Corpuscular Volume 85.6 fL (83.0-100.0); Mean Platelet Volume 9.5 fL (9.4-12.4); Monocytes # 0.8 K/mcL (0.0-1.3); Monocytes % 7.8 %; Neutrophils # 6.1 K/mcL (1.6-8.9); Platelet Count 262 K/mcL (140-400); Red Blood Count 3.74 M/mcL (3.82-4.97); Red Cell Distribution Width 13.6 % (11.5-14.5); Segmented Neutrophils % 62.6 %
[2020-12-18 03:53] LABS: White Blood Count 9.7 K/mcL (4.3-11.1)
[2020-12-18 04:08] LABS: BUN/Creatinine Ratio 28 (6-26); Blood Urea Nitrogen 26 mg/dL (8-23); Calcium 9.1 mg/dL (8.6-10.3); Carbon Dioxide 28 mEq/L (23-29); Chloride 101 mEq/L (98-107); Glucose 128 mg/dL (70-105); Osmolality,Calculated 288 (280-300); Potassium 4.1 mEq/L (3.5-5.1); Sodium 136 mEq/L (136-145); eGFR For African Americans > 60 (> 60); eGFR For Non-African Americans 57 (> 60)
[2020-12-18] MEDS: *HR* Heparin 5,000 UNIT/ML VIAL SQ SCH ×2 (06:37→17:50)
[2020-12-18] MEDS: Aspirin Enteric Coated 81 MG Tablet PO SCH (08:14)
[2020-12-18] MEDS: DilTIAZem CD (24hr) 120 MG CAP.ER.24H PO SCH (08:14)
[2020-12-18] MEDS: Mirtazapine 15 MG TABLET PO SCH (20:01)
[2020-12-18] MEDS: *HR* HYDROcodone/Acet 5/325 mg TABLET PO PRN (20:01)
[2020-12-19] MEDS: *HR* Heparin 5,000 UNIT/ML VIAL SQ SCH ×2 (06:58→18:37)
[2020-12-19] MEDS: Aspirin Enteric Coated 81 MG Tablet PO SCH (09:47)
[2020-12-19] MEDS: DilTIAZem CD (24hr) 120 MG CAP.ER.24H PO SCH (09:47)
[2020-12-19] MEDS: *HR* HYDROcodone/Acet 5/325 mg TABLET PO PRN (13:03)
[2020-12-19] MEDS: Mirtazapine 15 MG TABLET PO SCH (19:54)
[2020-12-20] MEDS: *HR* Heparin 5,000 UNIT/ML VIAL SQ SCH (05:05)
[2020-12-20] MEDS: DilTIAZem CD (24hr) 120 MG CAP.ER.24H PO SCH (07:54)
[2020-12-20] MEDS: Aspirin Enteric Coated 81 MG Tablet PO SCH (07:54)
[2020-12-20 11:15] LABS: Adenovirus Not Detected (Not Detect); Bordetella Pertussis Not Detected (Not Detect); Chlamydophila pneumoniae Not Detected (Not Detect); Coronavirus 229E Not Detected (Not Detect); Coronavirus HKU1 Not Detected (Not Detect); Coronavirus NL63 Not Detected (Not Detect); Coronavirus OC43 Not Detected (Not Detect); Human Metapneumovirus Not Detected (Not Detect); Human Rhinovirus/Enterovirus Not Detected (Not Detect); Influenza A Subtype 2009 H1 Not Detected (Not Detect); Influenza B Not Detected (Not Detect); Mycoplasma pneumoniae Not Detected (Not Detect); Parainfluenza Virus 1 Not Detected (Not Detect); Parainfluenza Virus 2 Not Detected (Not Detect); Parainfluenza Virus 3 Not Detected (Not Detect); Parainfluenza Virus 4 Not Detected (Not Detect); Respiratory Syncytial Virus Not Detected (Not Detect); SARS-CoV-2 Not Detected (Not Detect)
[2020-12-20 11:36] VITALS: BP 126/75
== END 2020-12-20 15:06 | DRG 310 ==
LOC: 3NENU → SUATTDRO 05:32
PROVIDERS: ADMIT Internal Medicine; ATTEND Student in an Organized Health Care Education/Training Program

== ENCOUNTER 2021-01-03 14:00 | Inpatient (IN) ==
[~2021-01-03 14:00] MED LIST: Acetaminophen IV 1,000 MG/100 ML BAG IVPB ONE; Famotidine 20 MG/2 ML VIAL IVP ONE; Ringers Solution, Lactated 1,000 ML IVC ONE
[2021-01-03] MEDS ORDERED: Clindamycin 900 MG/50 ML 900 MG/50 ML IV.SOLN IVPB ONE (14:23)
[2021-01-03] MEDS ORDERED: *HR* FentaNYL (PF) 100 MCG/2 ML VIAL ONE (14:24)
[2021-01-03] MEDS ORDERED: Lidocaine -MPF 2% 2 ML VIAL ONE ×2 (14:25→15:30)
[2021-01-03] MEDS ORDERED: Lidocaine -MPF 4% 5 ML AMPUL ONE (14:25)
[2021-01-03] MEDS ORDERED: *HR* Succinylcholine 200 MG/10 ML VIAL IVP ONE (14:25)
[2021-01-03] MEDS ORDERED: *HR* Propofol 200 MG/20 ML VIAL IVP ONE (14:25)
[2021-01-03] MEDS ORDERED: Ondansetron 4 MG/2 ML VIAL ONE (14:25)
[2021-01-03 14:55] LABS: Basophils # 0.1 K/mcL (0.0-0.2); Basophils % 0.8 %; Eosinophils # 0.1 K/mcL (0.0-0.6); Eosinophils % 1.9 %; Hematocrit 32.2 % (35.3-44.9); Hemoglobin 9.5 g/dL (11.5-15.4); Immature Granulocytes % 0.3 % (0-4); Lymphocytes # 1.4 K/mcL (0.6-4.6); Lymphocytes % 21.2 %; Mean Corpuscular HGB Conc 29.5 g/dL (31.6-35.5); Mean Corpuscular Hemoglobin 25.3 pg (28.0-33.3); Mean Corpuscular Volume 85.9 fL (83.0-100.0); Mean Platelet Volume 9.5 fL (9.4-12.4); Monocytes # 0.5 K/mcL (0.0-1.3); Monocytes % 7.8 %; Neutrophils # 4.3 K/mcL (1.6-8.9); Platelet Count 361 K/mcL (140-400); Red Blood Count 3.75 M/mcL (3.82-4.97); Red Cell Distribution Width 14.8 % (11.5-14.5); White Blood Count 6.4 K/mcL (4.3-11.1)
[2021-01-03] MEDS ORDERED: *HR* FentaNYL (PF) 100 MCG/2 ML VIAL IVP PRN (15:09)
[2021-01-03] MEDS ORDERED: Nitroglycerin 0.4 MG TAB.SUBL SL PRN (15:09)
[2021-01-03] MEDS ORDERED: Naloxone 0.4 MG/ML INJ IVP PRN (15:09)
[2021-01-03] MEDS ORDERED: Ondansetron 4 MG/2 ML VIAL IVP PRN ×2 (15:09→17:18)
[2021-01-03] MEDS ORDERED: *HR* OxyCODONE Immed Rel 5 MG TABLET PO PRN (15:09)
[2021-01-03] MEDS ORDERED: Albuterol 2.5 MG/3 ML NEBULIZER IH PRN (15:09)
[2021-01-03] MEDS ORDERED: Ropivacaine/PF 0.5% 30 ML VIAL ONE (15:31)
[2021-01-03] MEDS: Clindamycin 900 MG/50 ML 900 MG/50 ML IV.SOLN IVPB SCH (17:13)
[2021-01-03] MEDS ORDERED: MOM Conc 10 ML UD.LIQ PO PRN (17:18)
[2021-01-03] MEDS ORDERED: Albumin Human 5% 12.5 GM/250 ML IV.SOLN ONE (18:07)
[2021-01-03] MEDS ORDERED: Sugammadex Sodium 200 MG/2 ML VIAL IV ONE (19:23)
[2021-01-03] MEDS: Ringers Solution, Lactated 1,000 ML IVC SCH (21:20)
[2021-01-04] MEDS: Ringers Solution, Lactated 1,000 ML IVC SCH (07:43)
[2021-01-04] MEDS: Clindamycin 900 MG/50 ML 900 MG/50 ML IV.SOLN IVPB SCH (07:58)
[2021-01-04 08:28] LABS: Hematocrit 27.5 % (35.3-44.9); Hemoglobin 8.8 g/dL (11.5-15.4)
[2021-01-04 09:26] LABS: BUN/Creatinine Ratio 26 (6-26); Blood Urea Nitrogen 14 mg/dL (8-23); Calcium 8.5 mg/dL (8.6-10.3); Carbon Dioxide 25 mEq/L (23-29); Chloride 103 mEq/L (98-107); Glucose 136 mg/dL (70-105); Osmolality,Calculated 287 (280-300); Potassium 4.1 mEq/L (3.5-5.1); Sodium 137 mEq/L (136-145); eGFR For African Americans > 60 (> 60); eGFR For Non-African Americans > 60 (> 60)
[2021-01-04 10:13] VITALS: BP 114/68
== END 2021-01-04 17:08 | DRG 494 ==
LOC: SAMDAY 14:00 → 3NENU 20:39
PROVIDERS: ADMIT Orthopaedic Surgery; ATTEND Orthopaedic Surgery